=== PATIENT | female | born 1985 | race Caucasian/White ===

== ENCOUNTER → 2018-12-29 15:39 | Outpatient (CLI) | payer OTHER, MEDICAID, SELFPAY ==
[2018-12-29 17:12] LABS: Thyroid Stimulating Hormone 1.91 uIU/mL (0.47-4.68)
== END ==
PROVIDERS: PCP Family Medicine; Visit Provider Family Medicine
DX: E03.9 Hypothyroidism, unspecified (principal)
CPT/HCPCS: 36415; 84443

== ENCOUNTER → 2019-07-14 15:09 | Outpatient (CLI) | payer OTHER, MEDICAID, SELFPAY ==
--- NOTE | 2019-07-14 | DI.US.S_ITS ---
PROCEDURE: US THYROID INDICATIONS: NON TOXIC DIFFUSE GOITER TECHNIQUE: Real-time scanning was performed of the thyroid gland, with image documentation. COMPARISON: None. FINDINGS: Right: Thyroid lobe measures 5.9 x 1.4 x 1.2 cm, and is homogeneous in echotexture. Left: Thyroid lobe measures 4.3 x 0.8 x 1.5 cm, and is homogenous in echotexture. Isthmus: 2 mm thick. Nodule number: 1 Location: Inferior pole of the right thyroid lobe Size: 2.3 x 1.2 x 1.9 cm. Composition: Solid Echogenicity: Hypoechoic Shape: wider than tall. Margins: Most Echogenic foci: Punctate and macrocalcifications Total points: 7 ACR TI-RADS category: 5 IMPRESSION: 1. A 2.2 x 1.2 1.9 cm TI-RADS category 5 (highly suspicious) nodule in the inferior pole of the right thyroid lobe. Recommend ultrasound guided fine-needle aspiration biopsy. ACR TI-RADS definitions and recommendations: TI-RADS 1 (benign): 0 points. FNA not needed. TI-RADS 2 (not suspicious): 2 points. FNA not needed. TI-RADS 3 (mildly suspicious): 3 points. * FNA if 2.5 cm or larger, follow up if 1.5 cm or larger (at 1, 3, and 5 years). TI-RADS 4 (moderately suspicious): 4-6 points. * FNA if 1.5 cm or larger, follow up if 1 cm or larger (at 1, 2, 3, and 5 years). TI-RADS 5 (highly suspicious): 7 points or more. * FNA if 1 cm or larger, follow up if 0.5 cm or larger (every year for 5 years). Dictated by: Samy Salas M.D. on 07/15/2019 at 12:43 Approved by: Samy Salas M.D. on 07/15/2019 at 12:48
== END ==
PROVIDERS: Family Provider Family Medicine; PCP Family Medicine; Visit Provider Allergy & Immunology
DX: E04.1 Nontoxic single thyroid nodule (principal)
CPT/HCPCS: 76536

== ENCOUNTER → 2019-08-24 09:26 | Outpatient (CLI) | payer OTHER, MEDICAID, SELFPAY ==
--- NOTE | 2019-08-24 | PATH_ITS ---
Note [facility] Accession Number: [id number] TESTS RESULT FLAG UNITS REF RANGE LAB Clinician Provided Cytology Information No. of containers..01 ThinPrep Vial No. of containers..10 Previously Prepared Cytology Slide RIGHT THYROID NODULE DIAGNOSIS: 02 RIGHT THYROID NODULE BENIGN. BETHESDA CATEGORY II. SPECIMEN CONSISTS OF BENIGN FOLLICULAR CELLS, HEMOSIDERIN-LADEN MACROPHAGES, COLLOID, AND BLOOD. THIS PATTERN IS CONSISTENT WITH A BENIGN FOLLICULAR NODULE. Pathologist ICD10: 02 E04.1 02 Yu Hansen MD, Pathologist NPI- [id number] Sinan Amezquita, Notary Public ([facility]) 01 30 CC, PALE YELLOW, CLEAR RECEIVED: 5 ALCOHOL FIXED AND 5 QUICK STAINED SLIDES WITH 1 RNA VIAL FOR FURTHER TESTING. /VDU 08/25/2019 0953 [facility] FLAG LEGEND: L-Low Normal,H-High Normal,LL-Alert Low,HH-Alert High <-Panic Low,>-Panic High,A-Abnormal,AA-Critical Abnormal Performed at: 01 =Z [facility] [address], [place] [address] Terell Rainey MD, 02 [facility] [address] [place] [id number] Yu Hansen MD, Performed at: 01 [facility] [address], [place], [place] [id number] MD Terell Rainey MD Phone: [phone]
--- NOTE | 2019-08-24 09:28 | DI.US.S_ITS ---
PROCEDURE: US FINE NEEDLE ASPIRATION INDICATIONS: SINGLE RIGHT THYROID NODULE TECHNIQUE: The indications, alternatives, benefits, risks, and complications of the procedure were explained to the patient. Written informed consent was obtained and placed in the chart. The thyroid region was examined sonographically and a site was chosen for ultrasound guided percutaneous sampling. The skin was prepared and draped in the usual fashion, and anesthetized with 1% lidocaine infiltrated from the skin down to the thyroid gland. Multiple passes were then performed, with contents emptied into an appropriate pathology specimen container. A bandage was applied to the area of access at completion of the study. COMPARISON: None. FINDINGS: Location(s) of lesion(s) sampled: right lobe [place]: 25 and 22 gauge hypodermic needles. Number of passes: 6 Medications: 1% lidocaine for local anaesthesia. Complications: None. IMPRESSION: Successful ultrasound-guided thyroid nodule fine needle aspiration, with cytology results pending. Please see chart below for management recommendations based on cytology results. [facility] ReportingRecommendationsNon-diagnostic* Repeat US-guided FNA, with on-site cytology evaluation if possible. * Repeated non-diagnostic nodules without high suspicion US features: close observation vs surgical consult. * Consider surgery if nodule has high suspicion US features, grows >20% in 2 dimensions on followup, or patient has clinical risk factors for malignancy. Benign* If nodule has high suspicion US features: repeat US and FNA within 12 months. * If nodule has low to intermediate suspicion US features: repeat US at 12-24 months. If nodule grows (20% increase in at least 2 dimensions, with minimal increase of 2 mm or >50% change in volume), or development of new suspicious US features, then repeat FNA or continue followup. * If nodule has very low suspicion US features: followup US at >24 months. Atypia of undetermined significance, follicular lesion of undetermined significanceRepeat FNA, molecular testing, followup US, or surgical consult.Follicular neoplasm, suspicious for follicular neoplasmSurgical consult; also consider molecular testing. Suspicious for malignancySurgical consult.MalignantSurgical consult. Dictated by: Waylon Chiang M.D. on 08/24/2019 at 11:19 Approved by: Waylon Chiang M.D. on 08/24/2019 at 11:21
== END ==
PROVIDERS: PCP Family Medicine; Visit Provider Family Medicine
DX: E03.9 Hypothyroidism, unspecified (principal); E04.2 Nontoxic multinodular goiter
CPT/HCPCS: 10005

== ENCOUNTER → 2020-02-14 12:27 | Outpatient (CLI) | payer OTHER, MEDICAID, SELFPAY ==
--- NOTE | 2020-02-14 12:28 | DI.RAD.S_ITS ---
PROCEDURE: XR LUMBAR SPINE 2-3V INDICATIONS: low back pain with radiculopathy TECHNIQUE: 3 views of the lumbar spine were acquired. COMPARISON: None. FINDINGS: Bones: There are 5 lumbar-type vertebral bodies. The lowest intervertebral disk space is designated as L5-S1. The vertebral body heights are well-maintained without evidence to suggest an acute compression fracture. The bone mineralization is within normal limits. Mild degenerative changes of the lumbar spine are evident there is mild disc height loss, mild endplate irregularity, scattered anterior disc osteophyte complexes, and mild lower lumbar facet arthrosis. Bony alignment is within normal limits on the lateral view without spondylolisthesis. There is mild dextroconvex curvature of the lumbosacral spine with respect to the thoracolumbar junction. Soft tissues: The soft tissues of the imaged abdomen and pelvis are within normal limits. IMPRESSION: Mild degenerative changes of the lumbar spine. Dictated by: Jose Lynn M.D. on 02/14/2020 at 14:10 Approved by: Jose Lynn M.D. on 02/14/2020 at 14:12
== END ==
PROVIDERS: PCP Family Medicine; Referring Provider Family Medicine; Visit Provider Family Medicine
DX: M54.5 Low back pain (principal); M47.26 Other spondylosis with radiculopathy, lumbar region
CPT/HCPCS: 72100

== ENCOUNTER → 2020-02-28 12:44 | Outpatient (CLI) | payer OTHER, MEDICAID, SELFPAY ==
--- NOTE | 2020-02-28 12:45 | DI.US.S_ITS ---
PROCEDURE: US PELVIC COMPLETE INDICATIONS: Endometriosis TECHNIQUE: Real-time scanning was performed of the pelvic organs, with image documentation. Additional endovaginal scanning was necessary due to incomplete visualization of the adnexal and endometrial structures by transabdominal scanning. COMPARISON: [facility], US, PELVIC COMPLETE, 12/20/2015, 9:24. [facility], , PELVIC COMPLETE, 01/18/2015, 15:00. FINDINGS: Transabdominal scanning: Limited scanning through the kidneys shows no hydronephrosis. No pathologic free abdominal or pelvic fluid. Endovaginal scanning: Uterus: Uterus is normal in size at 3.8 x 5.1 x 5.3 cm. The endometrium measures 4.0 mm in combined thickness. Ovaries: The right ovary appears normal measuring 3.2 x 1.8 x 2.3 cm and the left also appears normal measuring 3.4 x 2.2 x 3.4 cm IMPRESSION: Normal examination, no abnormal pelvic mass or abnormal fluid collection. Dictated by: Casey Garcia M.D. on 02/28/2020 at 13:48 Approved by: Casey Garcia M.D. on 02/28/2020 at 13:50
== END ==
PROVIDERS: PCP Family Medicine; Referring Provider Obstetrics & Gynecology; Visit Provider Obstetrics & Gynecology
DX: N80.9 Endometriosis, unspecified (principal)
CPT/HCPCS: 76830; 76856

== ENCOUNTER → 2020-03-10 10:42 | Outpatient (CLI) | payer OTHER, MEDICAID, SELFPAY | PROVIDERS: PCP Family Medicine; Visit Provider Obstetrics & Gynecology | DX: R39.9 Unspecified symptoms and signs involving the genitourinary system (principal) | CPT/HCPCS: 87086 ==

== ENCOUNTER → 2020-03-27 16:16 | Outpatient (CLI) | payer OTHER, MEDICAID, SELFPAY ==
[2020-03-27 18:23] LABS: Thyroid Stimulating Hormone 1.99 uIU/mL (0.47-4.68)
== END ==
PROVIDERS: PCP Family Medicine; Referring Provider Family Medicine; Visit Provider Family Medicine
DX: E03.9 Hypothyroidism, unspecified (principal)
CPT/HCPCS: 36415; 84443

== ENCOUNTER → 2020-04-17 09:28 | Outpatient (CLI) | payer OTHER, MEDICAID, SELFPAY ==
--- NOTE | 2020-04-17 09:30 | DI.MG.S_ITS ---
BILATERAL DIGITAL DIAGNOSTIC MAMMOGRAM 3D/2D: 04/17/2020 CLINICAL: Bilateral breast pain. Comparison is made to exams dated: 03/25/2013 mammogram and 03/22/2013 [facility]. The tissue of both breasts is extremely dense, which lowers the sensitivity of mammography. No significant masses, calcifications, or other findings are seen in either breast. IMPRESSION: INCOMPLETE: NEEDS ADDITIONAL IMAGING EVALUATION There is no abnormality seen in the right breast to correspond with the pain in the upper outer quadrant, however, ultrasound is recommended. There is no abnormality seen in the left breast to correspond with the diffuse pain, however, clinical followup is recommended. This exam was interpreted at Station ID: [id number]. NOTE: For mammograms, a report in lay terms will be sent to the patient. Approximately 15% of breast malignancies will not be visualized mammographically. In the management of a palpable breast mass, a negative mammogram must not discourage biopsy of a clinically suspicious lesion. Electronically Signed By: Terell Doan M.D. ddellen/cristiano:04/17/2020 10:27:35 copy to: Edilia Galicia M.D., [facility], ph: [phone], fax: [phone] ACR BI-RADS Category 0: Incomplete 3340V
--- NOTE | 2020-04-17 09:30 | DI.US.S_ITS ---
LIMITED ULTRASOUND OF RIGHT BREAST: 04/17/2020 CLINICAL: Diffuse right breast pain. Comparison is made to exams dated: 04/17/2020 mammogram, 03/25/2013 mammogram, and 03/22/2013 [facility]. Color flow and real-time ultrasound of the right breast upper outer quadrant were performed on the areas of interest. There is a 0.7 cm x 0.4 cm x 0.6 cm cluster of oval cysts with a septated internal wall in the right breast at 10 o'clock posterior depth. This cluster of oval cysts is hypoechoic with posterior acoustic enhancement. Color flow imaging demonstrates that there is no vascularity present. This may or may not correlate with pain in the upper outer quadrant. IMPRESSION: PROBABLY BENIGN The 0.7 cm x 0.4 cm x 0.6 cm cluster of oval cysts in the right breast is consistent with a complicated cyst and is probably benign. A follow-up ultrasound in 6 months is recommended. A follow-up ultrasound in 6 months is recommended to demonstrate stability. Clinical follow-up is recommended for patient's pain symptoms. This exam was interpreted at Station ID: [id number]. Electronically Signed By: Terell Doan M.D. ddp/:04/17/2020 10:48:03 copy to: Edilia Galicia M.D., [facility], ph: [phone], fax: [phone] letter sent: Followup Recommended Ultrasound BI-RADS: 3 Probably benign
== END ==
PROVIDERS: PCP Family Medicine; Referring Provider Obstetrics & Gynecology; Visit Provider Obstetrics & Gynecology
DX: R92.8 Other abnormal and inconclusive findings on diagnostic imaging of breast (principal); N64.4 Mastodynia; N60.01 Solitary cyst of right breast
CPT/HCPCS: 76642; 77066; G0279

== ENCOUNTER → 2020-05-06 10:13 | Outpatient (CLI) | payer OTHER, MEDICAID, SELFPAY ==
--- NOTE | 2020-05-06 10:15 | DI.MRI.S_ITS ---
PROCEDURE: MR LUMBAR SPINE WO CON INDICATIONS: low back pain with radiculopathy, limited improvement w PT TECHNIQUE: Noncontrast sagittal T1 spin echo and T2 fast echo, sagittal STIR, axial T1 and T2 fast spin echo through the lumbar spine. In cases with scoliosis, additional coronal T2 fast spin echo may be performed. COMPARISON: None. FINDINGS: Image quality: Excellent. Alignment and Curvature: There is normal bony alignment. Bones: Marrow is of normal overall signal. Schmorl's nodes noted in the superior endplate of the L2, L3 and L4 vertebral bodies. No acute vertebral body compression fractures. Spinal Cord: Conus medullaris terminates at the T12 level. Visualized cord demonstrates normal signal and size. Paraspinous Soft Tissues: No paravertebral masses. L1-L2: Normal appearance. L2-L3: Normal appearance. L3-L4: Normal appearance. L4-L5: Loss of disc signal. Mild, diffuse disc bulge. Large central disc protrusion. Disc protrusion abuts but does not displace the traversing bilateral L5 nerve roots. Moderate narrowing of the central canal. Mild bilateral neural foraminal narrowing. L5-S1: Normal appearance. IMPRESSION: 1. Mild L4-L5 degenerative disease. 2. Mild L4-L5 central canal narrowing. 3. Mild bilateral L4-L5 neural foraminal narrowing. 4. Large central L4-L5 disc protrusion abuts, but does not displace the traversing bilateral L5 nerve roots. Dictated by: Anali Abdalla MD, PhD on 05/08/2020 at 9:49 Approved by: Anali Abdalla MD, PhD on 05/08/2020 at 9:52
== END ==
PROVIDERS: PCP Family Medicine; Referring Provider Family Medicine; Visit Provider Family Medicine
DX: M54.5 Low back pain (principal); M51.16 Intervertebral disc disorders with radiculopathy, lumbar region; M48.061 Spinal stenosis, lumbar region without neurogenic claudication
CPT/HCPCS: 72148

== ENCOUNTER → 2020-08-16 10:34 | Outpatient (CLI) | payer OTHER, MEDICAID, SELFPAY ==
--- NOTE | 2020-08-16 10:36 | DI.US.S_ITS ---
PROCEDURE: US THYROID INDICATIONS: Thyroid nodule. TECHNIQUE: Real-time scanning was performed of the thyroid gland, with image documentation. COMPARISON: [facility], US, US FINE NEEDLE ASPIRATION, 08/24/2019, 9:34. [facility], US, US THYROID, 07/14/2019, 15:26. FINDINGS: Right: Thyroid lobe measures 5.2 x 1.5 x 1.3 cm, and is homogeneous in echotexture. Left: Thyroid lobe measures 4.5 x 1.1 x 1.4 cm, and is homogenous in echotexture. Isthmus: 2.6 mm thick. Nodule number: 1 Location: Right inferior Size: Decreased at 1.9 x 1.1 x 1.6 cm. Composition: Solid Echogenicity: Hypoechoic Shape: wider than tall. Margins: Smooth Echogenic foci: None Total points: 4 ACR TI-RADS category: Moderately suspicious IMPRESSION: Interval decrease in size of right thyroid nodule. Recommend continued followup ultrasound as detailed below. ACR TI-RADS definitions and recommendations: TI-RADS 1 (benign): 0 points. FNA not needed. TI-RADS 2 (not suspicious): 2 points. FNA not needed. TI-RADS 3 (mildly suspicious): 3 points. * FNA if 2.5 cm or larger, follow up if 1.5 cm or larger (at 1, 3, and 5 years). TI-RADS 4 (moderately suspicious): 4-6 points. * FNA if 1.5 cm or larger, follow up if 1 cm or larger (at 1, 2, 3, and 5 years). TI-RADS 5 (highly suspicious): 7 points or more. * FNA if 1 cm or larger, follow up if 0.5 cm or larger (every year for 5 years). Dictated by: Ephraim DIAZ Interpreted: Elba Hannon MD on 08/16/2020 at 13:21 Approved by: Elba Hannon M.D. on 08/16/2020 at 17:14
== END ==
PROVIDERS: PCP Family Medicine; Referring Provider Family Medicine; Visit Provider Family Medicine
DX: E04.1 Nontoxic single thyroid nodule (principal)
CPT/HCPCS: 76536

== ENCOUNTER → 2020-08-29 07:59 | Outpatient (CLI) | payer OTHER, MEDICAID, SELFPAY ==
--- NOTE | 2020-08-29 08:02 | DI.US.S_ITS ---
PROCEDURE: US RENAL COMPLETE INDICATIONS: LOWER URINARY TRACT SYMPTOMS, BLADDER SPASMS TECHNIQUE: Real-time scanning was performed of the kidneys and bladder, with image documentation. COMPARISON: None. FINDINGS: Kidneys: Kidneys are normal in size. Right kidney measures 10.4 x 4.6 x 4.5 cm long; left kidney measures 10.8 x 4.3 x 4.6 cm long. Right renal cortical thickness is 1.6 cm; left renal cortical thickness is 1.7 cm. Renal cortical echotexture is normal. No hydronephrosis or nephrolithiasis. No suspicious solid mass lesions. Bladder: Pre-void bladder volume is 555 mL. Post-void residual is 29 mL. Pre-void images demonstrate no intraluminal masses or stones. On pre-void images, bilateral ureteral jets were not noted with color Doppler interrogation. (Of note, ureteral jets may not be detectable in up to 25% of cases due to insufficient differences in specific gravity between ureteral and bladder urine). Miscellaneous: No free pelvic fluid. IMPRESSION: Normal sonographic evaluation of the bilateral kidneys and urinary bladder. Dictated by: Leonidas Daigle M.D. on 08/29/2020 at 15:11 Approved by: Leonidas Daigle M.D. on 08/29/2020 at 15:12
== END ==
PROVIDERS: PCP Family Medicine; Referring Provider Urology; Visit Provider Urology
DX: R39.9 Unspecified symptoms and signs involving the genitourinary system (principal); N32.89 Other specified disorders of bladder
CPT/HCPCS: 76770

== ENCOUNTER → 2020-09-29 12:52 | Outpatient (CLI) | payer OTHER, MEDICAID, SELFPAY ==
--- NOTE | 2020-09-29 12:53 | DI.US.S_ITS ---
LIMITED ULTRASOUND OF RIGHT BREAST AND AXILLA: 09/29/2020 CLINICAL: Short term follow up of the right breast. Comparison is made to exams dated: 04/17/2020 ultrasound, 04/17/2020 mammogram, 03/25/2013 mammogram, and 03/22/2013 [facility]. Color flow and real-time ultrasound of the right breast 10 o'clock, and axilla regions were performed. Soria scale images of the real-time examination were reviewed. Redemonstration of previously described 0.7 cm x 0.4 cm x 0.5 cm cluster of oval cysts with a septated internal chowdhury in the right breast at 10 o'clock posterior depth 10 cm from the nipple. This cluster of oval cysts is hypoechoic with posterior acoustic enhancement. Color flow imaging demonstrates that there is no vascularity present. No mammographic correlates seen on prior evaluation. No significant abnormalities were seen sonographically in the right axilla. IMPRESSION: PROBABLY BENIGN The 0.7 cm x 0.4 cm x 0.5 cm cluster of oval cysts in the right breast is consistent with a complicated cyst and is probably benign. A follow-up right mammogram and an ultrasound in 6 months is recommended to demonstrate stability. Findings and recommendations were conveyed to the patient during today's evaluation. This exam was interpreted at Station ID: [id number]. Electronically Signed By: Leonidas Daigle M.D. aty/:09/29/2020 16:05:01 copy to: Edilia Galicia M.D., [facility], ph: [phone], fax: [phone] letter sent: Followup Recommended Ultrasound BI-RADS: 3 Probably benign
== END ==
PROVIDERS: PCP Family Medicine; Referring Provider Surgery; Visit Provider Surgery
DX: R92.8 Other abnormal and inconclusive findings on diagnostic imaging of breast (principal); N60.01 Solitary cyst of right breast
CPT/HCPCS: 76642

== ENCOUNTER → 2020-11-03 09:22 | Outpatient (CLI) | payer OTHER, MEDICAID, SELFPAY ==
--- NOTE | 2020-11-03 | DI.MG.S_ITS ---
UNILATERAL RIGHT DIGITAL DIAGNOSTIC MAMMOGRAM POST-PROCEDURE IMAGING FOR MARKER PLACEMENT: 11/03/2020 CLINICAL: Right post clip. Comparison is made to exams dated: 09/29/2020 ultrasound, 04/17/2020 ultrasound, and 04/17/2020 mammogram - [facility]. The tissue of right breast is dense, which lowers the sensitivity of mammography. The Vision Marker after biopsy is at expected position. IMPRESSION: POST PROCEDURE MAMMOGRAM FOR MARKER PLACEMENT Biopsy site marker as expected. This exam was interpreted at Station ID: [id number]. NOTE: For mammograms, a report in lay terms will be sent to the patient. Approximately 15% of breast malignancies will not be visualized mammographically. In the management of a palpable breast mass, a negative mammogram must not discourage biopsy of a clinically suspicious lesion. Electronically Signed By: Casey Garcia M.D. sdh/:11/06/2020 10:59:31 copy to: Edilia Galicia M.D., [facility] [employer], ph: [phone], fax: [phone] ACR BI-RADS Category Post-procedure mammogram for marker placement
--- NOTE | 2020-11-03 | PATH_ITS ---
[facility] Accession Number: [id number] . 01 Material submitted: . breast - RIGHT BREAST LESION 10:00 10 CM FN . 01 Clinical history: . RIGHT BREAST CYSTIC ABNORMALITY . 02 Diagnosis: Right Breast Lesion At 10 o'clock, 10 cm From Nipple, Needle Core Biopsy: Relatively well-defined benign cystic structures in a background of benign breast parenchyma, favor late stage duct ectasia. Please see comment. Negative for atypia or malignancy. MRV 11/09/2020 1514 Local . 02 Comment: The histologic features are consistent with the radiographic findings of a complicated cyst. An elastic stain is performed to help delineate tissue architecture and is negative in the region of interest; internal and external controls stained appropriately. A negative elastic stain can be associated with the late stage of duct ectasia. Overall, biochemical stain results and the well circumscribed nature of the cystic structures best support an interpretation of late stage duct ectasia. There is no evidence of atypia or malignancy. . Results were discussed with Dr. Kiran Maharaj's RN, on 11/07/2020 at approximately 4:45 p.m. . As part of ongoing corporate quality manager, this case is also reviewed by Dr. Oliva, who concurs with the given interpretation. . 02 Electronically signed: . Shaneka Brown MD, Pathologist NPI- [id number] . 01 Gross description: . Received one formalin-filled container, labeled with the patient's name and designated right breast lesion 10 o'clock 10 cm FN. The specimen is received with a plastic filter in container, sample loose in container and consists of multiple yellow-esposito to esposito-spencer portions of tissue which range in size from less than 0.1 cm to 1.2 x 0.4 x 0.3 cm. All fragments are totally submitted in one cassette. No collection date or time per container. Possible collection date and time per requisition 11/03/20 at 1100. Total fixation time: Approximately 55 hours. ([id number]) /MARYLIN 11/07/2020 0221 Local . 02 Pathologist provided ICD-10: N60.02 . 02 CPT . 073786, 636331 Performed at: 01 [facility] [address] [id number] MD Terell Rainey MD Phone: [phone] Performed at: 02 [facility] [address] [place] [id number] MD Yu Hansen MD Phone: [phone]
--- NOTE | 2020-11-03 09:25 | DI.US.S_ITS ---
ULTRASOUND GUIDED BIOPSY RIGHT BREAST USING VACUUM DEVICE WITH MARKING DEVICE INSERTED AND POST MAMMOGRAPHIC AND ULTRASOUND IMAGIN11/03/2020 CLINICAL: Right breast mass. PATIENT CONSENT: Risks (minor bleeding, infection, vasovagal reaction and repeat procedure), benefits and alternatives were explained to the patient and written informed consent was obtained. Correlation is made to exams dated: 11/03/2020 mammogram, 09/29/2020 ultrasound, 04/17/2020 ultrasound, 04/17/2020 mammogram, 03/25/2013 mammogram, and 03/22/2013 [facility]. An ultrasound guided biopsy using real-time ultrasound was performed for the concerning 0.5 cm x 0.6 cm x 0.6 cm circumscribed oval solid mass located in the right breast at 10 o'clock middle depth. This was described on the previous mammography and ultrasound reports. The skin was prepped in the usual manner. Local anesthetic was administered to the access site. A skin gladis was made in the breast. The abnormality was approached from the lateral aspect. A 13 gauge biopsy needle was placed adjacent to the abnormality under ultrasound guidance. Once the needle was documented to be in the correct location, six specimens were obtained using the Mammotome biopsy system. The patient received deep positioned local anesthetic, lidocaine with epinepherine, before the procedure at the biopsy site. A Vision Marker clip was inserted into the biopsy cavity. A skin closure strip and a sterile dressing were applied to the access site. Post procedure mammographic and ultrasound imaging demonstrates the location device at the targeted area and partial removal of the abnormality. The specimens were sent to the laboratory for pathological analysis. IMPRESSION: ULTRASOUND GUIDED BIOPSY BENIGN Ultrasound guided biopsy of the 0.5 cm x 0.6 cm x 0.6 cm solid mass in the right breast at 10 o'clock middle depth 10 cm from the nipple was successful. Pathology demonstrates Relatively well-defined benign cystic structures in a background of benign breast parenchyma, favor late stage duct ectasia. Please see comment. Negative for atypia or malignancy. Pathology results are concordant with imaging findings. Recommend returning to screening mammogram. This exam was interpreted at Station ID: [id number]. Casey Coronel M.D. [facility]/:11/13/2020 08:13:44 copy to: Edilia Galicia M.D., [facility], ph: [phone], fax: [phone]
== END ==
PROVIDERS: PCP Family Medicine; Referring Provider Surgery; Visit Provider Surgery
DX: N60.01 Solitary cyst of right breast (principal); N64.4 Mastodynia
CPT/HCPCS: 19083; 77065

== ENCOUNTER → 2021-04-23 17:41 | Outpatient (CLI) | payer OTHER, MEDICAID, SELFPAY | PROVIDERS: PCP Family Medicine; Referring Provider Family Medicine; Visit Provider Family Medicine | DX: E03.9 Hypothyroidism, unspecified (principal) | CPT/HCPCS: 36415; 84443 ==

== ENCOUNTER → 2021-07-17 13:44 | Outpatient (CLI) | payer OTHER, MEDICAID, SELFPAY ==
[2021-07-17 14:29] LABS: COVID19 -Nasal RAPID Negative (Negative)
== END ==
PROVIDERS: Family Provider Family Medicine; PCP Family Medicine; Visit Provider Family Medicine
DX: Z20.822 Contact with and (suspected) exposure to COVID-19 (principal)
CPT/HCPCS: 87635

== ENCOUNTER 2021-08-21 16:45 | Outpatient (RCR) | payer OTHER, MEDICAID, SELFPAY ==
--- NOTE | 2021-07-02 14:30 | PT.OIE ---
Current Diagnoses Pain in unspecified ankle and joints of unspecified foot (07/02/21) Lumbago with sciatica, right side (07/02/21) Muscle weakness (generalized) (07/02/21) Difficulty in walking, not elsewhere classified (07/02/21) Unspecified abnormalities of gait and mobility (07/02/21) Abnormal posture (07/02/21) Past Medical History (Last Reviewed 12/26/20 @ 17:41 by Carmen Beck MD) ADHD (attention deficit hyperactivity disorder) Ankle arthritis Ankle pain Anxiety Depression Endometriosis Fibrocystic breast disease History of ankle surgery (2005) History of bilateral inguinal hernia repair (04/17/16) History of carpal tunnel release (2008) History of colonoscopy History of excision of lesion History of laparoscopy (2010) History of TMJ disorder Hypothyroidism IBS (irritable bowel syndrome) Nodulocystic acne Thyroid nodule Tremor Past Surgical History (Last Reviewed 12/26/20 @ 17:41 by Carmen Beck MD) History of ankle surgery (2005) History of bilateral inguinal hernia repair (04/17/16) History of carpal tunnel release (2008) History of colonoscopy History of excision of lesion History of laparoscopy (2010) History of third molar tooth extraction Visit Care Team Role Provider Type Edilia Galicia MD Attending Provider Physician Family Provider Primary Care Provider Referring Provider Specialty: Family Practice Address: [address] [place] [address], [facility] Email: [email or web address] Physical Therapy Initial Evaluation PT-OP-A Visit Information Start: 06/28/21 13:42 Freq: Status: Active Protocol: Document 07/02/21 09:33 [facility] (Rec: 07/02/21 12:07 [facility] [id number]) Out-Patient Physical Therapy Visit Information Visit Information Visit Type Initial Evaluation Visit Start Time 11:22 Visit Stop Time 12:02 Total Visit Minutes 40 Visit Number 1 Number of EXECUTIVE LEGAL SECRETARY Visits 0 PT-OP-B Current Condition Start: 06/28/21 13:42 Freq: Status: Active Protocol: Document 07/02/21 09:33 [facility] (Rec: 07/02/21 12:07 [facility] [id number]) Current Condition History of Current Condition Current Complaints LBP w/radicaular R sided, L ankle, trouble walking History of Current Condition Pt reports at age 10-11 pt broke ankle on trampoline ( buckle fracture on head of one of bones and sprain). Did PT and wore boot but never really healed. Father is an ER MD and they went through lots of testing and they did exploritory surgery in 2004 which found scar tissue and took that out and that helped. notes yani has arthritis now. She has pain with standing and walking extended (concrete worse tahn dirt). If she steps back and to L, then her ankle goes out. She has sprained both of them mult times. 2019 pt ruptured disc L4-5 with pain down R leg. She did PT for that which she doesn't feel like was good therapy. She had a spine injection and that gave her more pain and it set her back really far. She had already used up her insurance benefits of PT so did some exercises on her own. Pain is now only in back mostly but she still has it shoot down and numbness occ. She now has pain in L lat lower leg which is new. Normally pain is ant lat ankle . She wants to be able to walk in order to lose weight to help her with her ortho injuries but can't walk d/t pain. She wants to prevent herself from falling d/t instability. Feels like both legs are weak. She can get down into a squat but cannot hold it long d/t pain in L lat ankle and has to get out of that position. Pt fell down stairs d/t slipping as one leg went out from under her and other couldn't hold her. She was starting to inc each month by 500 steps to inc walking but then L piriformist started tightening up and she had to back off. On a good day now, she can do 6k steps. 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 Prior Treatments and Tests PT 1997 for ankle, surgery 2004 for ankle scar tissue, saw in [place] that wanted to do spinal fusion, Saw manufacturing specialist that said only slight R buldge that barely touches spinal cord, PT for mult things in past Treatment Goals Patient/Caregiver Goals Get as close to normal as possible, find out what cause pain to shoot up ankle to dec that, work on mm to strengthen to avoid instability w/step backa nd to side, back to walking more PT-OP-C Subjective Start: 06/28/21 13:42 Freq: Status: Active Protocol: Document 07/02/21 09:33 [facility] (Rec: 07/02/21 12:07 [facility] [id number]) Patient Questionnaires Foot & Ankle Ability Measure- ADL and Sports FAAM-ADL Score 64/84 FAAM-Sport Score 16/28 Lower Extremity Functional Scale LEFS Score 53/80 OP-PT Pain Assessment Location low back Pain Location Details lower lumbar Scale Used 6/10 worst-tries to stop it before higher Description Sharp,Stabbing,Tightness Frequency Frequent Radiating Location down into post R LE pain & tingling Pain Aggravating Factors Standing,Sitting,Lifting Other Pain Alleviating Factors extension, walking L ankle Pain Location Details ant lat and lat lower leg Scale Used 1-3/10 at rest; 5/10 Description Aching,With Movement Frequency Constant Pain Duration can last days Pain Aggravating Factors Standing,Walking Other Pain Aggravating Factors squatting, change of weather, concrete, cold, muck boots Pain Alleviating Factors Heat Other Pain Alleviating Factors traction of ankle (only during that) PT-OP-D Balance Start: 06/28/21 13:42 Freq: Status: Active Protocol: Document 07/02/21 09:33 [facility] (Rec: 07/02/21 12:07 [facility] [id number]) Balance Tests Single Limb Standing Single Limb- Right 20 sec lat shear of hip and UE reached out for balance Single Limb- Left 8 sec lat shear of hip and UE reached out for balance-pain PT-OP-F Manual Assessment Start: 06/28/21 13:42 Freq: Status: Active Protocol: Document 07/02/21 09:33 [facility] (Rec: 07/02/21 12:07 [facility] [id number]) Manual Assessments Soft Tissue Assessment Soft Tissue Mobility Assessment tenderness L ant talus, peroneal mm L Joint Mobility Assessment Joint Mobility Assessment iliac crest slightly high on L , equal greater trochanter ; rearfoot valgus L, forefoot valgus R>L PT-OP-G Mobility & Gait Start: 06/28/21 13:42 Freq: Status: Active Protocol: Document 07/02/21 09:33 [facility] (Rec: 07/02/21 12:07 [facility] [id number]) OP Gait Assessment Comments Gait Comments Dec stance time on LLE with no push off from LLE, no R UE swing, lat lean over LLE PT-OP-J Posture/Palpation/Skin Start: 06/28/21 13:42 Freq: Status: Active Protocol: Document 07/02/21 09:33 [facility] (Rec: 07/02/21 12:07 [facility] [id number]) Posture Evaluation [facility] Postural Classification System [facility] Postural Classifications Posterior/Posterior Vertebral Compression Test 1 Lumbar Protective Mechanism Left AP 0 Lumbar Protective Mechanism Right AP 0 Lumbar Protective Mechanism Left PA 0 Lumbar Protective Mechanism Right PA 0 PT-OP-K Range of Motion Start: 06/28/21 13:42 Freq: Status: Active Protocol: Document 07/02/21 09:33 [facility] (Rec: 07/02/21 12:07 [facility] [id number]) Ankle and Foot Goniometric Range of Motion Ankle and Foot Right Active Dorsiflexion with Knee Flexed 2 Dorsiflexion with Knee Extended 5 Plantarflexion 60 Inversion 40 Eversion 19 Comments lacking DF to neutral in knee ext position Left Active Dorsiflexion with Knee Flexed 0 Dorsiflexion with Knee Extended 7 Plantarflexion 60 Inversion 33 Eversion 18 Comments lacking DF to neutral in knee ext position PT-OP-L Special Tests Start: 06/28/21 13:42 Freq: Status: Active Protocol: Document 07/02/21 09:33 [facility] (Rec: 07/02/21 12:07 [facility] [id number]) Special Tests Foot/Ankle Special Tests Talor Tilt Test Results neg Anterior Draw Test Results neg Neural Special Tests- Lower Body SLR Test Results neg -good HS mobility slump Test Results positive R PT-OP-M Strength Start: 06/28/21 13:42 Freq: Status: Active Protocol: Document 07/02/21 09:33 [facility] (Rec: 07/02/21 12:07 [facility] [id number]) Hip Strength Hip Manual Muscle Testing Right Flexion (L2) 4 Good Extension (S1) 3+ Fair+ Abduction 3+ Fair+ External Rotation 4 Good Internal Rotation 4 Good Left Flexion (L2) 3+ Fair+ Extension (S1) 3 Fair Abduction 3+ Fair+ External Rotation 4- Good- Internal Rotation 4- Good- Knee Strength Knee Manual Muscle Testing Right Flexion (S2) 5 Normal Extension (L3) 5 Normal Left Flexion (S2) 4 Good Extension (L3) 5 Normal Ankle/Foot Strength Ankle and Foot Manual Muscle Testing Right Dorsiflexion (L4) 5 Normal Plantarflexion (S1) 4+ Good+ Inversion 5 Normal Eversion (S1) 5 Normal Comments 15 heel raises Left Dorsiflexion (L4) 4+ Good+ Plantarflexion (S1) 4- Good- Inversion 4 Good Eversion (S1) 5 Normal Comments 12 heel raises w/difficulty keeping knee straight PT-OP-T Assessment and Plan Start: 06/28/21 13:42 Freq: Status: Active Protocol: Document 07/02/21 09:33 [facility] (Rec: 07/02/21 12:07 [facility] [id number]) Physical Therapy Assessment Rehab Potential Rehabilitation Potential Good Evaluation Complexity Number of Personal Factors/Comorbidities 3 or More Number of Body Systems Impaired 4 or More Clinical Presentation at Evaluation Evolving Impairments Impairments Activity Tolerance,Balance, Functional Activities, Functional Mobility,Gait,Pain, Posture,ROM,Soft Tissue Mobility,Strength Goals SLS Long-Term Goal (LTG) Pt will be able to do SLS 15 sec B w/o lat lean or UE use or pain to show iproved balance and stability. LTG Duration 09/01/21 ROM Short Term Goal (STG) Pt will have at least DF to neutral in knee ext positon. STG Duration 08/01/21 Long-Term Goal (LTG) Pt will have AROM DF to at least 5 deg in knee ext position to improve gait mechanics. LTG Duration 09/01/21 strength Short Term Goal (STG) Pt will be indep w/ HEP STG Duration 08/01/21 Long-Term Goal (LTG) pt will have at least 3/5 LPM in all planes and 5/5 MMT to LE in all planes to show improved stability to dec instances of LEs givign out. LTG Duration 09/01/21 walking Short Term Goal (STG) Pt will be able to get 6k steps daily without inc pain greater than 4/10 in back or ankle. STG Duration 08/01/21 Optical Manager Goal (LTG) pt will be able to go for walks for exercise with no more than 3/10 pain in ankle or back. LTG Duration 09/01/21 LEFS Impairment 53/80 Long-Term Goal (LTG) Pt will improve LEFS score to at least 65/80 in order to show increase in functional ability. LTG Duration 09/01/21 Assessment Summary Assessment Pt presents w/chronic L ankle pain for about 25 years since fracture and signficiant sprain w/surgery w/removal of scar tissue 16 years ago w/ only some relief. Pt had episode of LBP w/radiculopathy starting last year that has gotten a little better w/less radicular pain but still LBP and weakness in RLE. W/BLE weakness, pt has felt unstable and feels concered about falls. She has not been able to increase walking d/t increased L ankle pain although walking does help her back. She is severely limited in functional moblity and would benefit from skilled PT to return to more normal activity w/o inc pain. Physical Therapy Plan Frequency and Duration Frequency of Treatment 1-2x/week Duration of Treatment 2 months Plan of Care Start Date 07/02/21 Plan of Care End Date 09/01/21 Therapeutic Interventions Therapeutic Interventions Aquatic Therapy,Balance Training,Coordination Training ,Gait Training,Home Exercise Program,Joint Mobilizations, Manual Therapy,Neuromuscular Re-education,Patient/Caregiver Education,Self-Care/Home Management,Soft Tissue Mobilization,Taping, Therapeutic Activities, Therapeutic Exercises Modalities Cold Pack/Ice Massage,Electric Stimulation,Hot Packs, Infrared Therapy,Iontophoresis ,Traction- Mechanical, Ultrasound Next Visit Focus/Plan Next Note Type Treatment Note Next Visit Plan do short visits d/t insurances limits w/units, bridges, supine core facilitation, try semitandem or tandem balance ( lower level balance challenges as SLS is painful), hip hinge w/progession to squat if pt able, calf stretches STM to peroneal, L ankle mobs for DF
--- NOTE | 2021-07-02 14:30 | PT.OPPOC ---
Physical, Occupational & Speech Therapy At [facility] Current Diagnoses Pain in unspecified ankle and joints of unspecified foot (07/02/21) Lumbago with sciatica, right side (07/02/21) Muscle weakness (generalized) (07/02/21) Difficulty in walking, not elsewhere classified (07/02/21) Unspecified abnormalities of gait and mobility (07/02/21) Abnormal posture (07/02/21) Visit Care Team Role Provider Type Edilia Galicia MD Attending Provider Physician Family Provider Primary Care Provider Referring Provider Specialty: Family Practice Address: [address] [place] [address], [place], [address] Email: [email or web address] Plan Of Care PT-OP-T Assessment and Plan Start: 06/28/21 13:42 Freq: Status: Active Protocol: Document 07/02/21 09:33 [facility] (Rec: 07/02/21 12:07 [facility] [id number]) Physical Therapy Assessment Rehab Potential Rehabilitation Potential Good Evaluation Complexity Number of Personal Factors/Comorbidities 3 or More Number of Body Systems Impaired 4 or More Clinical Presentation at Evaluation Evolving Impairments Impairments Activity Tolerance,Balance, Functional Activities, Functional Mobility,Gait,Pain, Posture,ROM,Soft Tissue Mobility,Strength Goals SLS Mcfp Goal (LTG) Pt will be able to do SLS 15 sec B w/o lat lean or UE use or pain to show iproved balance and stability. LTG Duration 09/01/21 ROM Short Term Goal (STG) Pt will have at least DF to neutral in knee ext positon. STG Duration 08/01/21 Car Head Liner Installer Goal (LTG) Pt will have AROM DF to at least 5 deg in knee ext position to improve gait mechanics. LTG Duration 09/01/21 strength Short Term Goal (STG) Pt will be indep w/ HEP STG Duration 08/01/21 Mcfp Goal (LTG) pt will have at least 3/5 LPM in all planes and 5/5 MMT to LE in all planes to show improved stability to dec instances of LEs givign out. LTG Duration 09/01/21 walking Short Term Goal (STG) Pt will be able to get 6k steps daily without inc pain greater than 4/10 in back or ankle. STG Duration 08/01/21 Mcfp Goal (LTG) pt will be able to go for walks for exercise with no more than 3/10 pain in ankle or back. LTG Duration 09/01/21 LEFS Impairment 53/80 Mcfp Goal (LTG) Pt will improve LEFS score to at least 65/80 in order to show increase in functional ability. LTG Duration 09/01/21 Assessment Summary Assessment Pt presents w/chronic L ankle pain for about 25 years since fracture and signficiant sprain w/surgery w/removal of scar tissue 16 years ago w/ only some relief. Pt had episode of LBP w/radiculopathy starting last year that has gotten a little better w/less radicular pain but still LBP and weakness in RLE. W/BLE weakness, pt has felt unstable and feels concered about falls. She has not been able to increase walking d/t increased L ankle pain although walking does help her back. She is severely limited in functional moblity and would benefit from skilled PT to return to more normal activity w/o inc pain. Physical Therapy Plan Frequency and Duration Frequency of Treatment 1-2x/week Duration of Treatment 2 months Plan of Care Start Date 07/02/21 Plan of Care End Date 09/01/21 Therapeutic Interventions Therapeutic Interventions Aquatic Therapy,Balance Training,Coordination Training ,Gait Training,Home Exercise Program,Joint Mobilizations, Manual Therapy,Neuromuscular Re-education,Patient/Caregiver Education,Self-Care/Home Management,Soft Tissue Mobilization,Taping, Therapeutic Activities, Therapeutic Exercises Modalities Cold Pack/Ice Massage,Electric Stimulation,Hot Packs, Infrared Therapy,Iontophoresis ,Traction- Mechanical, Ultrasound Next Visit Focus/Plan Next Note Type Treatment Note Next Visit Plan do short visits d/t insurances limits w/units, bridges, supine core facilitation, try semitandem or tandem balance ( lower level balance challenges as SLS is painful), hip hinge w/progession to squat if pt able, calf stretches STM to peroneal, L ankle mobs for DF Plan of Care Dates Plan of Care Start Date 07/02/21 Plan of Care End Date 09/01/21 Electronically Signed by: Edilia Dowling, PT 07/02/21 [id number] Please Sign and Return: I have reviewed this Plan of Care and certify that the skilled therapy services above are required to meet the patient?s needs. Physician Signature Date Printed Name and Credentials Clinical Instructor Signature Printed Name and Credentials
--- NOTE | 2021-07-13 10:38 | PT.OTN ---
Current Diagnoses Pain in unspecified ankle and joints of unspecified foot (07/13/21) Lumbago with sciatica, right side (07/13/21) Muscle weakness (generalized) (07/13/21) Difficulty in walking, not elsewhere classified (07/13/21) Unspecified abnormalities of gait and mobility (07/13/21) Abnormal posture (07/13/21) Physical Therapy Treatment Note PT-OP-A Visit Information Start: 06/28/21 13:42 Freq: Status: Active Protocol: Document 07/13/21 10:24 OF (Rec: 07/13/21 10:38 OF [email or web address]) Out-Patient Physical Therapy Visit Information Visit Information Visit Type Treatment Note Visit Note HEP=gastroc stretch (education for knee to be extended), rolling pin on peroneals, bridges on heels Visit Start Time 09:45 Visit Stop Time 10:22 Total Visit Minutes 37 Visit Number 2 PT-OP-B Current Condition Start: 06/28/21 13:42 Freq: Status: Active Protocol: Document 07/02/21 09:33 [facility] (Rec: 07/02/21 12:07 [facility] [id number]) Current Condition History of Current Condition Current Complaints LBP w/radicaular R sided, L ankle, trouble walking History of Current Condition Pt reports at age 10-11 pt broke ankle on trampoline ( buckle fracture on head of one of bones and sprain). Did PT and wore boot but never really healed. Father is an ER MD and they went through lots of testing and they did exploritory surgery in 2004 which found scar tissue and took that out and that helped. notes yani has arthritis now. She has pain with standing and walking extended (concrete worse tahn dirt). If she steps back and to L, then her ankle goes out. She has sprained both of them mult times. 2019 pt ruptured disc L4-5 with pain down R leg. She did PT for that which she doesn't feel like was good therapy. She had a spine injection and that gave her more pain and it set her back really far. She had already used up her insurance benefits of PT so did some exercises on her own. Pain is now only in back mostly but she still has it shoot down and numbness occ. She now has pain in L lat lower leg which is new. Normally pain is ant lat ankle . She wants to be able to walk in order to lose weight to help her with her ortho injuries but can't walk d/t pain. She wants to prevent herself from falling d/t instability. Feels like both legs are weak. She can get down into a squat but cannot hold it long d/t pain in L lat ankle and has to get out of that position. Pt fell down stairs d/t slipping as one leg went out from under her and other couldn't hold her. She was starting to inc each month by 500 steps to inc walking but then L piriformist started tightening up and she had to back off. On a good day now, she can do 6k steps. 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 Prior Treatments and Tests PT 1997 for ankle, surgery 2004 for ankle scar tissue, saw in [place] that wanted to do spinal fusion, Saw network and threat support specialist that said only slight R buldge that barely touches spinal cord, PT for mult things in past Treatment Goals Patient/Caregiver Goals Get as close to normal as possible, find out what cause pain to shoot up ankle to dec that, work on mm to strengthen to avoid instability w/step backa nd to side, back to walking more PT-OP-C Subjective Start: 06/28/21 13:42 Freq: Status: Active Protocol: Document 07/13/21 10:24 OF (Rec: 07/13/21 10:38 OF [email or web address]) OP-PT Subjective Patient Comments Patient Comments pt reports ankle pain daily, lumbar pain improving since onset Patient Reported Progress Same OP-PT Pain Assessment Pain Assessment Grid Paper Pain Assessment Grid Completed No Location L ankle Pain Location Details ant lat and lat lower leg Scale Used 1-3/10 at rest; 5/10 Description Aching,With Movement Frequency Constant Pain Aggravating Factors Standing,Walking Other Pain Aggravating Factors squatting, change of weather, concrete, cold Pain Alleviating Factors Heat Other Pain Alleviating Factors traction of ankle (only during that) PT-OP-D Balance Start: 06/28/21 13:42 Freq: Status: Active Protocol: Document 07/02/21 09:33 [facility] (Rec: 07/02/21 12:07 [facility] [id number]) Balance Tests Single Limb Standing Single Limb- Right 20 sec lat shear of hip and UE reached out for balance Single Limb- Left 8 sec lat shear of hip and UE reached out for balance-pain PT-OP-F Manual Assessment Start: 06/28/21 13:42 Freq: Status: Active Protocol: Document 07/02/21 09:33 [facility] (Rec: 07/02/21 12:07 [facility] [id number]) Manual Assessments Soft Tissue Assessment Soft Tissue Mobility Assessment tenderness L ant talus, peroneal mm L Joint Mobility Assessment Joint Mobility Assessment iliac crest slightly high on L , equal greater trochanter ; rearfoot valgus L, forefoot valgus R>L PT-OP-G Mobility & Gait Start: 06/28/21 13:42 Freq: Status: Active Protocol: Document 07/02/21 09:33 [facility] (Rec: 07/02/21 12:07 [facility] [id number]) OP Gait Assessment Comments Gait Comments Dec stance time on LLE with no push off from LLE, no R UE swing, lat lean over LLE PT-OP-J Posture/Palpation/Skin Start: 06/28/21 13:42 Freq: Status: Active Protocol: Document 07/02/21 09:33 [facility] (Rec: 07/02/21 12:07 [facility] [id number]) Posture Evaluation [facility] Postural Classification System Endy Postural Classifications Posterior/Posterior Vertebral Compression Test 1 Lumbar Protective Mechanism Left AP 0 Lumbar Protective Mechanism Right AP 0 Lumbar Protective Mechanism Left PA 0 Lumbar Protective Mechanism Right PA 0 PT-OP-K Range of Motion Start: 06/28/21 13:42 Freq: Status: Active Protocol: Document 07/02/21 09:33 [facility] (Rec: 07/02/21 12:07 [facility] [id number]) Ankle and Foot Goniometric Range of Motion Ankle and Foot Right Active Dorsiflexion with Knee Flexed 2 Dorsiflexion with Knee Extended 5 Plantarflexion 60 Inversion 40 Eversion 19 Comments lacking DF to neutral in knee ext position Left Active Dorsiflexion with Knee Flexed 0 Dorsiflexion with Knee Extended 7 Plantarflexion 60 Inversion 33 Eversion 18 Comments lacking DF to neutral in knee ext position PT-OP-L Special Tests Start: 06/28/21 13:42 Freq: Status: Active Protocol: Document 07/02/21 09:33 [facility] (Rec: 07/02/21 12:07 [facility] [id number]) Special Tests Foot/Ankle Special Tests Talor Tilt Test Results neg Anterior Draw Test Results neg Neural Special Tests- Lower Body SLR Test Results neg -good HS mobility slump Test Results positive R PT-OP-M Strength Start: 06/28/21 13:42 Freq: Status: Active Protocol: Document 07/02/21 09:33 [facility] (Rec: 07/02/21 12:07 [facility] [id number]) Hip Strength Hip Manual Muscle Testing Right Flexion (L2) 4 Good Extension (S1) 3+ Fair+ Abduction 3+ Fair+ External Rotation 4 Good Internal Rotation 4 Good Left Flexion (L2) 3+ Fair+ Extension (S1) 3 Fair Abduction 3+ Fair+ External Rotation 4- Good- Internal Rotation 4- Good- Knee Strength Knee Manual Muscle Testing Right Flexion (S2) 5 Normal Extension (L3) 5 Normal Left Flexion (S2) 4 Good Extension (L3) 5 Normal Ankle/Foot Strength Ankle and Foot Manual Muscle Testing Right Dorsiflexion (L4) 5 Normal Plantarflexion (S1) 4+ Good+ Inversion 5 Normal Eversion (S1) 5 Normal Comments 15 heel raises Left Dorsiflexion (L4) 4+ Good+ Plantarflexion (S1) 4- Good- Inversion 4 Good Eversion (S1) 5 Normal Comments 12 heel raises w/difficulty keeping knee straight PT-OP-Q Treatments Start: 06/28/21 13:42 Freq: Status: Active Protocol: Document 07/13/21 10:24 OF (Rec: 07/13/21 10:38 OF [email or web address]) Cardio Equipment Elliptical Duration (Minutes) 5 Resistance 3 Therapeutic Exercises Supine Exercises bridges on heels Side bilateral Reps/Minutes 3x5 Comments cues for glutes, fatigue in peroneals on L Standing Exercises gastroc stretch Side bilateral Equipment Used MOON Reps/Minutes [id number] Manual Therapy Treatment Joint Mobilizations fibular head Direction a/p Grade III Reps/Duration 5min talar Direction a/p Grade III Reps/Duration 5min Comments including MWM for increased dorsiflexion Manual Traction L ankle Body Position Supine Self-Care/Home Management Treatment Education Patient Education Body Mechanics,Home Exercise Program,Pain Management Other Education pt educated upon spinal ext, she has a good understanding of self tx for lumbar pain. PT-OP-T Assessment and Plan Start: 06/28/21 13:42 Freq: Status: Active Protocol: Document 07/13/21 10:24 OF (Rec: 07/13/21 10:38 OF [email or web address]) Physical Therapy Assessment Rehab Potential Rehabilitation Potential Good Evaluation Complexity Number of Personal Factors/Comorbidities 3 or More Number of Body Systems Impaired 4 or More Clinical Presentation at Evaluation Evolving Impairments Impairments Activity Tolerance,Balance, Functional Activities, Functional Mobility,Gait,Pain, Posture,ROM,Soft Tissue Mobility,Strength Goals SLS Group Home Goal (LTG) Pt will be able to do SLS 15 sec B w/o lat lean or UE use or pain to show iproved balance and stability. LTG Duration 09/01/21 ROM Short Term Goal (STG) Pt will have at least DF to neutral in knee ext positon. STG Duration 08/01/21 Group Home Goal (LTG) Pt will have AROM DF to at least 5 deg in knee ext position to improve gait mechanics. LTG Duration 09/01/21 strength Short Term Goal (STG) Pt will be indep w/ HEP STG Duration 08/01/21 Group Home Goal (LTG) pt will have at least 3/5 LPM in all planes and 5/5 MMT to LE in all planes to show improved stability to dec instances of LEs givign out. LTG Duration 09/01/21 walking Short Term Goal (STG) Pt will be able to get 6k steps daily without inc pain greater than 4/10 in back or ankle. STG Duration 08/01/21 Magnetic Resonance Imaging Director Goal (LTG) pt will be able to go for walks for exercise with no more than 3/10 pain in ankle or back. LTG Duration 09/01/21 LEFS Impairment 53/80 Group Home Goal (LTG) Pt will improve LEFS score to at least 65/80 in order to show increase in functional ability. LTG Duration 09/01/21 Progress Towards Goals Progress Towards Goals Progressing Toward Goals Assessment Summary Assessment Lis reports improvement in her lumbar pain, limited radicular symptoms on R. She has consistent ankle pain. Pain with Mobilizations and MWM. Advised to perform HEP for STM at peroneals, gastroc stretching, bridges on heels. Physical Therapy Plan Frequency and Duration Frequency of Treatment 1-2x/week Duration of Treatment 2 months Plan of Care Start Date 07/02/21 Plan of Care End Date 09/01/21 Therapeutic Interventions Therapeutic Interventions Aquatic Therapy,Balance Training,Coordination Training ,Gait Training,Home Exercise Program,Joint Mobilizations, Manual Therapy,Neuromuscular Re-education,Patient/Caregiver Education,Self-Care/Home Management,Soft Tissue Mobilization,Taping, Therapeutic Activities, Therapeutic Exercises Modalities Cold Pack/Ice Massage,Electric Stimulation,Hot Packs, Infrared Therapy,Iontophoresis ,Traction- Mechanical, Ultrasound Next Visit Focus/Plan Next Note Type Treatment Note Next Visit Plan assess response to mobs, gastroc stretching, bridges. do short visits d/t insurances limits w/units, bridges, supine core facilitation, try semitandem or tandem balance ( lower level balance challenges as SLS is painful), hip hinge w/progession to squat if pt able, calf stretches STM to peroneal, L ankle mobs for DF
--- NOTE | 2021-07-20 13:04 | PT.OTN ---
Current Diagnoses Pain in unspecified ankle and joints of unspecified foot (07/20/21) Lumbago with sciatica, right side (07/20/21) Muscle weakness (generalized) (07/20/21) Difficulty in walking, not elsewhere classified (07/20/21) Unspecified abnormalities of gait and mobility (07/20/21) Abnormal posture (07/20/21) Physical Therapy Treatment Note PT-OP-A Visit Information Start: 06/28/21 13:42 Freq: Status: Active Protocol: Document 07/20/21 12:45 MA (Rec: 07/20/21 12:58 MA [email or web address]) Out-Patient Physical Therapy Visit Information Visit Information Visit Type Treatment Note Visit Start Time 12:00 Visit Stop Time 12:37 Total Visit Minutes 37 Visit Number 3 Number of CLIN APPLICATION SPECIALIST Visits 1 PT-OP-B Current Condition Start: 06/28/21 13:42 Freq: Status: Active Protocol: Document 07/02/21 09:33 [facility] (Rec: 07/02/21 12:07 [facility] [id number]) Current Condition History of Current Condition Current Complaints LBP w/radicaular R sided, L ankle, trouble walking History of Current Condition Pt reports at age 10-11 pt broke ankle on trampoline ( buckle fracture on head of one of bones and sprain). Did PT and wore boot but never really healed. Father is an ER MD and they went through lots of testing and they did exploritory surgery in 2004 which found scar tissue and took that out and that helped. notes yani has arthritis now. She has pain with standing and walking extended (concrete worse tahn dirt). If she steps back and to L, then her ankle goes out. She has sprained both of them mult times. 2019 pt ruptured disc L4-5 with pain down R leg. She did PT for that which she doesn't feel like was good therapy. She had a spine injection and that gave her more pain and it set her back really far. She had already used up her insurance benefits of PT so did some exercises on her own. Pain is now only in back mostly but she still has it shoot down and numbness occ. She now has pain in L lat lower leg which is new. Normally pain is ant lat ankle . She wants to be able to walk in order to lose weight to help her with her ortho injuries but can't walk d/t pain. She wants to prevent herself from falling d/t instability. Feels like both legs are weak. She can get down into a squat but cannot hold it long d/t pain in L lat ankle and has to get out of that position. Pt fell down stairs d/t slipping as one leg went out from under her and other couldn't hold her. She was starting to inc each month by 500 steps to inc walking but then L piriformist started tightening up and she had to back off. On a good day now, she can do 6k steps. 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 Prior Treatments and Tests PT 1997 for ankle, surgery 2004 for ankle scar tissue, saw in [place] that wanted to do spinal fusion, Saw field service specialist that said only slight R buldge that barely touches spinal cord, PT for mult things in past Treatment Goals Patient/Caregiver Goals Get as close to normal as possible, find out what cause pain to shoot up ankle to dec that, work on mm to strengthen to avoid instability w/step backa nd to side, back to walking more PT-OP-C Subjective Start: 06/28/21 13:42 Freq: Status: Active Protocol: Document 07/20/21 12:45 MA (Rec: 07/20/21 12:58 MA [email or web address]) OP-PT Subjective Patient Comments Patient Comments Pt reports having some numbness radiating down RLE when driving to airport this week. PT-OP-D Balance Start: 06/28/21 13:42 Freq: Status: Active Protocol: Document 07/02/21 09:33 [facility] (Rec: 07/02/21 12:07 [facility] [id number]) Balance Tests Single Limb Standing Single Limb- Right 20 sec lat shear of hip and UE reached out for balance Single Limb- Left 8 sec lat shear of hip and UE reached out for balance-pain PT-OP-F Manual Assessment Start: 06/28/21 13:42 Freq: Status: Active Protocol: Document 07/02/21 09:33 [facility] (Rec: 07/02/21 12:07 [facility] [id number]) Manual Assessments Soft Tissue Assessment Soft Tissue Mobility Assessment tenderness L ant talus, peroneal mm L Joint Mobility Assessment Joint Mobility Assessment iliac crest slightly high on L , equal greater trochanter ; rearfoot valgus L, forefoot valgus R>L PT-OP-G Mobility & Gait Start: 06/28/21 13:42 Freq: Status: Active Protocol: Document 07/02/21 09:33 [facility] (Rec: 07/02/21 12:07 [facility] [id number]) OP Gait Assessment Comments Gait Comments Dec stance time on LLE with no push off from LLE, no R UE swing, lat lean over LLE PT-OP-J Posture/Palpation/Skin Start: 06/28/21 13:42 Freq: Status: Active Protocol: Document 07/02/21 09:33 [facility] (Rec: 07/02/21 12:07 [facility] [id number]) Posture Evaluation Endy Postural Classification System Endy Postural Classifications Posterior/Posterior Vertebral Compression Test 1 Lumbar Protective Mechanism Left AP 0 Lumbar Protective Mechanism Right AP 0 Lumbar Protective Mechanism Left PA 0 Lumbar Protective Mechanism Right PA 0 PT-OP-K Range of Motion Start: 06/28/21 13:42 Freq: Status: Active Protocol: Document 07/02/21 09:33 [facility] (Rec: 07/02/21 12:07 [facility] [id number]) Ankle and Foot Goniometric Range of Motion Ankle and Foot Right Active Dorsiflexion with Knee Flexed 2 Dorsiflexion with Knee Extended 5 Plantarflexion 60 Inversion 40 Eversion 19 Comments lacking DF to neutral in knee ext position Left Active Dorsiflexion with Knee Flexed 0 Dorsiflexion with Knee Extended 7 Plantarflexion 60 Inversion 33 Eversion 18 Comments lacking DF to neutral in knee ext position PT-OP-L Special Tests Start: 06/28/21 13:42 Freq: Status: Active Protocol: Document 07/02/21 09:33 [facility] (Rec: 07/02/21 12:07 [facility] [id number]) Special Tests Foot/Ankle Special Tests Talor Tilt Test Results neg Anterior Draw Test Results neg Neural Special Tests- Lower Body SLR Test Results neg -good HS mobility slump Test Results positive R PT-OP-M Strength Start: 06/28/21 13:42 Freq: Status: Active Protocol: Document 07/02/21 09:33 [facility] (Rec: 07/02/21 12:07 [facility] [id number]) Hip Strength Hip Manual Muscle Testing Right Flexion (L2) 4 Good Extension (S1) 3+ Fair+ Abduction 3+ Fair+ External Rotation 4 Good Internal Rotation 4 Good Left Flexion (L2) 3+ Fair+ Extension (S1) 3 Fair Abduction 3+ Fair+ External Rotation 4- Good- Internal Rotation 4- Good- Knee Strength Knee Manual Muscle Testing Right Flexion (S2) 5 Normal Extension (L3) 5 Normal Left Flexion (S2) 4 Good Extension (L3) 5 Normal Ankle/Foot Strength Ankle and Foot Manual Muscle Testing Right Dorsiflexion (L4) 5 Normal Plantarflexion (S1) 4+ Good+ Inversion 5 Normal Eversion (S1) 5 Normal Comments 15 heel raises Left Dorsiflexion (L4) 4+ Good+ Plantarflexion (S1) 4- Good- Inversion 4 Good Eversion (S1) 5 Normal Comments 12 heel raises w/difficulty keeping knee straight PT-OP-Q Treatments Start: 06/28/21 13:42 Freq: Status: Active Protocol: Document 07/20/21 12:45 MA (Rec: 07/20/21 12:58 MA [email or web address]) Cardio Equipment Elliptical Duration (Minutes) 6 Resistance 3 Therapeutic Exercises Supine Exercises HS stretch Side bilateral Equipment Used belt Reps/Minutes 30 sec Comments attempted active HS stretch but pt's L shd hurt and was unable to complete bridges on heels Side bilateral Reps/Minutes 3x5 Comments cues for glutes, fatigue in peroneals on L Sitting Exercises inversion/eversion Side left Equipment Used lvl 1 TB Reps/Minutes x10 Comments attempted PF/EF but increased pain in lateral ankle Standing Exercises Calf Raises Side bilateral Equipment Used stair Reps/Minutes 10x gastroc stretch Side bilateral Equipment Used MOON Reps/Minutes [id number] Other Exercises [place] Other Exercise Name pirifomris stretch Side bilateral Reps/Minutes x30 sec ea Rolling pin Other Exercise Name peroneals, gastroc Side left Equipment Used mm roller Reps/Minutes 5 Manual Therapy Treatment Soft Tissue Mobilization Peroneals Body Location Left Mobilization Type Sustained Pressure,Trigger Point Release Intensity/Depth Moderate Body Position Sitting PT-OP-T Assessment and Plan Start: 06/28/21 13:42 Freq: Status: Active Protocol: Document 07/20/21 12:45 MA (Rec: 07/20/21 12:58 MA [email or web address]) Physical Therapy Assessment Goals SLS [facility] Assistant Goal (LTG) Pt will be able to do SLS 15 sec B w/o lat lean or UE use or pain to show iproved balance and stability. LTG Duration 09/01/21 ROM Short Term Goal (STG) Pt will have at least DF to neutral in knee ext positon. STG Duration 08/01/21 [facility] Assistant Goal (LTG) Pt will have AROM DF to at least 5 deg in knee ext position to improve gait mechanics. LTG Duration 09/01/21 strength Short Term Goal (STG) Pt will be indep w/ HEP STG Duration 08/01/21 [facility] Assistant Goal (LTG) pt will have at least 3/5 LPM in all planes and 5/5 MMT to LE in all planes to show improved stability to dec instances of LEs givign out. LTG Duration 09/01/21 walking Short Term Goal (STG) Pt will be able to get 6k steps daily without inc pain greater than 4/10 in back or ankle. STG Duration 08/01/21 Retirement Goal (LTG) pt will be able to go for walks for exercise with no more than 3/10 pain in ankle or back. LTG Duration 09/01/21 LEFS Impairment 53/80 Retirement Goal (LTG) Pt will improve LEFS score to at least 65/80 in order to show increase in functional ability. LTG Duration 09/01/21 Assessment Summary Assessment Pt reports improved radicular symptoms down RLE when performing piriformis stretch at home. Attempted active HS stretch supine from 90/90 but pt c/o L shd pain from recently diagonsed acromion inflammation, likely AC jt inflammation, and is unable to hold back of leg for stretch. Her lateral L ankle continues to give her pain and she had increased soreness after last appt lasting ~48 hours. Added calf stretch, calf raises, piriformis stretch, bridges and inversion/eversion with resistance to HEP. Pt has increased pain on posterior lateral ankle when performing ankle PF/DF with resistance band but does not have pain when doing calf raises from floor. Physical Therapy Plan Frequency and Duration Frequency of Treatment 1-2x/week Duration of Treatment 2 months Plan of Care Start Date 07/02/21 Plan of Care End Date 09/01/21 Therapeutic Interventions Therapeutic Interventions Aquatic Therapy,Balance Training,Coordination Training ,Gait Training,Home Exercise Program,Joint Mobilizations, Manual Therapy,Neuromuscular Re-education,Patient/Caregiver Education,Self-Care/Home Management,Soft Tissue Mobilization,Taping, Therapeutic Activities, Therapeutic Exercises Modalities Cold Pack/Ice Massage,Electric Stimulation,Hot Packs, Infrared Therapy,Iontophoresis ,Traction- Mechanical, Ultrasound Next Visit Focus/Plan Next Note Type Treatment Note Next Visit Plan work on gait do short visits d/t insurances limits w/units, bridges, supine core facilitation, try semitandem or tandem balance ( lower level balance challenges as SLS is painful), hip hinge w/progession to squat if pt able, calf stretches STM to peroneal, L ankle mobs for DF
--- NOTE | 2021-07-26 10:35 | PT.OTN ---
Current Diagnoses Pain in unspecified ankle and joints of unspecified foot (07/26/21) Lumbago with sciatica, right side (07/26/21) Muscle weakness (generalized) (07/26/21) Difficulty in walking, not elsewhere classified (07/26/21) Unspecified abnormalities of gait and mobility (07/26/21) Abnormal posture (07/26/21) Physical Therapy Treatment Note PT-OP-A Visit Information Start: 06/28/21 13:42 Freq: Status: Active Protocol: Document 07/26/21 09:49 [facility] (Rec: 07/26/21 10:35 [facility] [id number]) Out-Patient Physical Therapy Visit Information Visit Information Visit Type Treatment Note Visit Note short visits d/t insurance limits Visit Start Time 09:50 Visit Stop Time 10:26 Total Visit Minutes 36 Visit Number 4 Number of MANAGER PERSONAL Visits 0 PT-OP-B Current Condition Start: 06/28/21 13:42 Freq: Status: Active Protocol: Document 07/02/21 09:33 [facility] (Rec: 07/02/21 12:07 [facility] [id number]) Current Condition History of Current Condition Current Complaints LBP w/radicaular R sided, L ankle, trouble walking History of Current Condition Pt reports at age 10-11 pt broke ankle on trampoline ( buckle fracture on head of one of bones and sprain). Did PT and wore boot but never really healed. Father is an ER MD and they went through lots of testing and they did exploritory surgery in 2004 which found scar tissue and took that out and that helped. notes yani has arthritis now. She has pain with standing and walking extended (concrete worse tahn dirt). If she steps back and to L, then her ankle goes out. She has sprained both of them mult times. 2020 pt ruptured disc L4-5 with pain down R leg. She did PT for that which she doesn't feel like was good therapy. She had a spine injection and that gave her more pain and it set her back really far. She had already used up her insurance benefits of PT so did some exercises on her own. Pain is now only in back mostly but she still has it shoot down and numbness occ. She now has pain in L lat lower leg which is new. Normally pain is ant lat ankle . She wants to be able to walk in order to lose weight to help her with her ortho injuries but can't walk d/t pain. She wants to prevent herself from falling d/t instability. Feels like both legs are weak. She can get down into a squat but cannot hold it long d/t pain in L lat ankle and has to get out of that position. Pt fell down stairs d/t slipping as one leg went out from under her and other couldn't hold her. She was starting to inc each month by 500 steps to inc walking but then L piriformist started tightening up and she had to back off. On a good day now, she can do 6k steps. 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 Prior Treatments and Tests PT 1997 for ankle, surgery 2004 for ankle scar tissue, saw in [place] that wanted to do spinal fusion, Saw environmental education specialist that said only slight R buldge that barely touches spinal cord, PT for mult things in past Treatment Goals Patient/Caregiver Goals Get as close to normal as possible, find out what cause pain to shoot up ankle to dec that, work on mm to strengthen to avoid instability w/step backa nd to side, back to walking more PT-OP-C Subjective Start: 06/28/21 13:42 Freq: Status: Active Protocol: Document 07/26/21 09:49 [facility] (Rec: 07/26/21 10:35 [facility] [id number]) OP-PT Subjective Patient Comments Patient Comments Pt reports soreness after sessions and notes back is sore today PT-OP-D Balance Start: 06/28/21 13:42 Freq: Status: Active Protocol: Document 07/02/21 09:33 [facility] (Rec: 07/02/21 12:07 [facility] [id number]) Balance Tests Single Limb Standing Single Limb- Right 20 sec lat shear of hip and UE reached out for balance Single Limb- Left 8 sec lat shear of hip and UE reached out for balance-pain PT-OP-F Manual Assessment Start: 06/28/21 13:42 Freq: Status: Active Protocol: Document 07/02/21 09:33 [facility] (Rec: 07/02/21 12:07 [facility] [id number]) Manual Assessments Soft Tissue Assessment Soft Tissue Mobility Assessment tenderness L ant talus, peroneal mm L Joint Mobility Assessment Joint Mobility Assessment iliac crest slightly high on L , equal greater trochanter ; rearfoot valgus L, forefoot valgus R>L PT-OP-G Mobility & Gait Start: 06/28/21 13:42 Freq: Status: Active Protocol: Document 07/02/21 09:33 [facility] (Rec: 07/02/21 12:07 [facility] [id number]) OP Gait Assessment Comments Gait Comments Dec stance time on LLE with no push off from LLE, no R UE swing, lat lean over LLE PT-OP-J Posture/Palpation/Skin Start: 06/28/21 13:42 Freq: Status: Active Protocol: Document 07/02/21 09:33 [facility] (Rec: 07/02/21 12:07 [facility] [id number]) Posture Evaluation [facility] Postural Classification System [facility] Postural Classifications Posterior/Posterior Vertebral Compression Test 1 Lumbar Protective Mechanism Left AP 0 Lumbar Protective Mechanism Right AP 0 Lumbar Protective Mechanism Left PA 0 Lumbar Protective Mechanism Right PA 0 PT-OP-K Range of Motion Start: 06/28/21 13:42 Freq: Status: Active Protocol: Document 07/02/21 09:33 [facility] (Rec: 07/02/21 12:07 [facility] [id number]) Ankle and Foot Goniometric Range of Motion Ankle and Foot Right Active Dorsiflexion with Knee Flexed 2 Dorsiflexion with Knee Extended 5 Plantarflexion 60 Inversion 40 Eversion 19 Comments lacking DF to neutral in knee ext position Left Active Dorsiflexion with Knee Flexed 0 Dorsiflexion with Knee Extended 7 Plantarflexion 60 Inversion 33 Eversion 18 Comments lacking DF to neutral in knee ext position PT-OP-L Special Tests Start: 06/28/21 13:42 Freq: Status: Active Protocol: Document 07/02/21 09:33 [facility] (Rec: 07/02/21 12:07 [facility] [id number]) Special Tests Foot/Ankle Special Tests Talor Tilt Test Results neg Anterior Draw Test Results neg Neural Special Tests- Lower Body SLR Test Results neg -good HS mobility slump Test Results positive R PT-OP-M Strength Start: 06/28/21 13:42 Freq: Status: Active Protocol: Document 07/02/21 09:33 [facility] (Rec: 07/02/21 12:07 [facility] [id number]) Hip Strength Hip Manual Muscle Testing Right Flexion (L2) 4 Good Extension (S1) 3+ Fair+ Abduction 3+ Fair+ External Rotation 4 Good Internal Rotation 4 Good Left Flexion (L2) 3+ Fair+ Extension (S1) 3 Fair Abduction 3+ Fair+ External Rotation 4- Good- Internal Rotation 4- Good- Knee Strength Knee Manual Muscle Testing Right Flexion (S2) 5 Normal Extension (L3) 5 Normal Left Flexion (S2) 4 Good Extension (L3) 5 Normal Ankle/Foot Strength Ankle and Foot Manual Muscle Testing Right Dorsiflexion (L4) 5 Normal Plantarflexion (S1) 4+ Good+ Inversion 5 Normal Eversion (S1) 5 Normal Comments 15 heel raises Left Dorsiflexion (L4) 4+ Good+ Plantarflexion (S1) 4- Good- Inversion 4 Good Eversion (S1) 5 Normal Comments 12 heel raises w/difficulty keeping knee straight PT-OP-Q Treatments Start: 06/28/21 13:42 Freq: Status: Active Protocol: Document 07/26/21 09:49 [facility] (Rec: 07/26/21 10:35 [facility] [id number]) Manual Therapy Treatment Joint Mobilizations MT Joint L 2&3 AP cuneiforms Joint L Direction gapping FM calcaneus Joint R Direction distraction & AP, lat glide talar Joint R Direction distraction & AP Comments w/passive DF PT-OP-T Assessment and Plan Start: 06/28/21 13:42 Freq: Status: Active Protocol: Document 07/26/21 09:49 [facility] (Rec: 07/26/21 10:35 [facility] [id number]) Physical Therapy Assessment Goals SLS Chemical Instrumentation Officer Goal (LTG) Pt will be able to do SLS 15 sec B w/o lat lean or UE use or pain to show iproved balance and stability. LTG Duration 09/01/21 ROM Short Term Goal (STG) Pt will have at least DF to neutral in knee ext positon. STG Duration 08/01/21 Chemical Instrumentation Officer Goal (LTG) Pt will have AROM DF to at least 5 deg in knee ext position to improve gait mechanics. LTG Duration 09/01/21 strength Short Term Goal (STG) Pt will be indep w/ HEP STG Duration 08/01/21 Halfway Goal (LTG) pt will have at least 3/5 LPM in all planes and 5/5 MMT to LE in all planes to show improved stability to dec instances of LEs givign out. LTG Duration 09/01/21 walking Short Term Goal (STG) Pt will be able to get 6k steps daily without inc pain greater than 4/10 in back or ankle. STG Duration 08/01/21 Halfway Goal (LTG) pt will be able to go for walks for exercise with no more than 3/10 pain in ankle or back. LTG Duration 09/01/21 LEFS Impairment 53/80 Halfway Goal (LTG) Pt will improve LEFS score to at least 65/80 in order to show increase in functional ability. LTG Duration 09/01/21 Assessment Summary Assessment Pt reported only inc to 2/10 in L ankle after mobs. She does well with resisted exercises w/min cueing for form Physical Therapy Plan Frequency and Duration Frequency of Treatment 1-2x/week Duration of Treatment 2 months Plan of Care Start Date 07/02/21 Plan of Care End Date 09/01/21 Next Visit Focus/Plan Next Note Type Treatment Note Next Visit Plan work on gait, assess how pt tolerated small piece of KT tape and tape for swelling of lat malleoli if tolerated do short visits d/t insurances limits w/units, bridges, supine core facilitation, try semitandem or tandem balance ( lower level balance challenges as SLS is painful), hip hinge w/progession to squat if pt able, calf stretches STM to peroneal, L ankle mobs for DF
--- NOTE | 2021-08-01 15:10 | PT.OTN ---
Current Diagnoses Pain in unspecified ankle and joints of unspecified foot (08/01/21) Lumbago with sciatica, right side (08/01/21) Muscle weakness (generalized) (08/01/21) Difficulty in walking, not elsewhere classified (08/01/21) Unspecified abnormalities of gait and mobility (08/01/21) Abnormal posture (08/01/21) Physical Therapy Treatment Note PT-OP-A Visit Information Start: 06/28/21 13:42 Freq: Status: Active Protocol: Document 08/01/21 14:33 [facility] (Rec: 08/01/21 15:10 [facility] [id number]) Out-Patient Physical Therapy Visit Information Visit Information Visit Type Treatment Note Visit Note Short visits d/t insurance limits Visit Start Time 14:30 Visit Stop Time 15:05 Total Visit Minutes 35 Visit Number 5 Number of FLATWORK PRESSER Visits 1 PT-OP-B Current Condition Start: 06/28/21 13:42 Freq: Status: Active Protocol: Document 07/02/21 09:33 [facility] (Rec: 07/02/21 12:07 [facility] [id number]) Current Condition History of Current Condition Current Complaints LBP w/radicaular R sided, L ankle, trouble walking History of Current Condition Pt reports at age 10-11 pt broke ankle on trampoline ( buckle fracture on head of one of bones and sprain). Did PT and wore boot but never really healed. Father is an ER MD and they went through lots of testing and they did exploritory surgery in 2004 which found scar tissue and took that out and that helped. notes yani has arthritis now. She has pain with standing and walking extended (concrete worse tahn dirt). If she steps back and to L, then her ankle goes out. She has sprained both of them mult times. 2020 pt ruptured disc L4-5 with pain down R leg. She did PT for that which she doesn't feel like was good therapy. She had a spine injection and that gave her more pain and it set her back really far. She had already used up her insurance benefits of PT so did some exercises on her own. Pain is now only in back mostly but she still has it shoot down and numbness occ. She now has pain in L lat lower leg which is new. Normally pain is ant lat ankle . She wants to be able to walk in order to lose weight to help her with her ortho injuries but can't walk d/t pain. She wants to prevent herself from falling d/t instability. Feels like both legs are weak. She can get down into a squat but cannot hold it long d/t pain in L lat ankle and has to get out of that position. Pt fell down stairs d/t slipping as one leg went out from under her and other couldn't hold her. She was starting to inc each month by 500 steps to inc walking but then L piriformist started tightening up and she had to back off. On a good day now, she can do 6k steps. 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 Prior Treatments and Tests PT 1997 for ankle, surgery 2004 for ankle scar tissue, saw in [place] that wanted to do spinal fusion, Saw learning design specialist that said only slight R buldge that barely touches spinal cord, PT for mult things in past Treatment Goals Patient/Caregiver Goals Get as close to normal as possible, find out what cause pain to shoot up ankle to dec that, work on mm to strengthen to avoid instability w/step backa nd to side, back to walking more PT-OP-C Subjective Start: 06/28/21 13:42 Freq: Status: Active Protocol: Document 08/01/21 14:33 [facility] (Rec: 08/01/21 15:10 [facility] [id number]) OP-PT Subjective Patient Comments Patient Comments Pt reports flare up of IBS. She states her ankle is feeling a little better and her back is about a 3/10 today PT-OP-D Balance Start: 06/28/21 13:42 Freq: Status: Active Protocol: Document 07/02/21 09:33 [facility] (Rec: 07/02/21 12:07 [facility] [id number]) Balance Tests Single Limb Standing Single Limb- Right 20 sec lat shear of hip and UE reached out for balance Single Limb- Left 8 sec lat shear of hip and UE reached out for balance-pain PT-OP-F Manual Assessment Start: 06/28/21 13:42 Freq: Status: Active Protocol: Document 07/02/21 09:33 [facility] (Rec: 07/02/21 12:07 [facility] [id number]) Manual Assessments Soft Tissue Assessment Soft Tissue Mobility Assessment tenderness L ant talus, peroneal mm L Joint Mobility Assessment Joint Mobility Assessment iliac crest slightly high on L , equal greater trochanter ; rearfoot valgus L, forefoot valgus R>L PT-OP-G Mobility & Gait Start: 06/28/21 13:42 Freq: Status: Active Protocol: Document 07/02/21 09:33 [facility] (Rec: 07/02/21 12:07 [facility] [id number]) OP Gait Assessment Comments Gait Comments Dec stance time on LLE with no push off from LLE, no R UE swing, lat lean over LLE PT-OP-J Posture/Palpation/Skin Start: 06/28/21 13:42 Freq: Status: Active Protocol: Document 07/02/21 09:33 [facility] (Rec: 07/02/21 12:07 [facility] [id number]) Posture Evaluation [facility] Postural Classification System [facility] Postural Classifications Posterior/Posterior Vertebral Compression Test 1 Lumbar Protective Mechanism Left AP 0 Lumbar Protective Mechanism Right AP 0 Lumbar Protective Mechanism Left PA 0 Lumbar Protective Mechanism Right PA 0 PT-OP-K Range of Motion Start: 06/28/21 13:42 Freq: Status: Active Protocol: Document 07/02/21 09:33 [facility] (Rec: 07/02/21 12:07 [facility] [id number]) Ankle and Foot Goniometric Range of Motion Ankle and Foot Right Active Dorsiflexion with Knee Flexed 2 Dorsiflexion with Knee Extended 5 Plantarflexion 60 Inversion 40 Eversion 19 Comments lacking DF to neutral in knee ext position Left Active Dorsiflexion with Knee Flexed 0 Dorsiflexion with Knee Extended 7 Plantarflexion 60 Inversion 33 Eversion 18 Comments lacking DF to neutral in knee ext position PT-OP-L Special Tests Start: 06/28/21 13:42 Freq: Status: Active Protocol: Document 07/02/21 09:33 [facility] (Rec: 07/02/21 12:07 [facility] [id number]) Special Tests Foot/Ankle Special Tests Talor Tilt Test Results neg Anterior Draw Test Results neg Neural Special Tests- Lower Body SLR Test Results neg -good HS mobility slump Test Results positive R PT-OP-M Strength Start: 06/28/21 13:42 Freq: Status: Active Protocol: Document 07/02/21 09:33 [facility] (Rec: 07/02/21 12:07 [facility] [id number]) Hip Strength Hip Manual Muscle Testing Right Flexion (L2) 4 Good Extension (S1) 3+ Fair+ Abduction 3+ Fair+ External Rotation 4 Good Internal Rotation 4 Good Left Flexion (L2) 3+ Fair+ Extension (S1) 3 Fair Abduction 3+ Fair+ External Rotation 4- Good- Internal Rotation 4- Good- Knee Strength Knee Manual Muscle Testing Right Flexion (S2) 5 Normal Extension (L3) 5 Normal Left Flexion (S2) 4 Good Extension (L3) 5 Normal Ankle/Foot Strength Ankle and Foot Manual Muscle Testing Right Dorsiflexion (L4) 5 Normal Plantarflexion (S1) 4+ Good+ Inversion 5 Normal Eversion (S1) 5 Normal Comments 15 heel raises Left Dorsiflexion (L4) 4+ Good+ Plantarflexion (S1) 4- Good- Inversion 4 Good Eversion (S1) 5 Normal Comments 12 heel raises w/difficulty keeping knee straight PT-OP-Q Treatments Start: 06/28/21 13:42 Freq: Status: Active Protocol: Document 08/01/21 14:33 [facility] (Rec: 08/01/21 15:10 [facility] [id number]) Therapeutic Exercises Supine Exercises HS stretch Side bilateral Equipment Used belt Reps/Minutes 30 sec Comments bending knee to 90/90 and back up bridges on heels Side bilateral Reps/Minutes 3x5 Comments cues for glutes, fatigue in peroneals on L Sitting Exercises inversion/eversion Side left Equipment Used lvl 1 TB Reps/Minutes 2x10 Standing Exercises gastroc stretch Side bilateral Equipment Used MOON Reps/Minutes [id number] Other Exercises [place] Other Exercise Name pirifomris stretch Side bilateral Reps/Minutes x30 sec ea Gait Training Gait Activity Heel/Toe Surface solid Distance/Duration 10' Treatment Focus improving gait-L heel strike Comments increasing L stance time Manual Therapy Treatment Soft Tissue Mobilization Peroneals Body Location Left Mobilization Type Sustained Pressure,Trigger Point Release Intensity/Depth Moderate Body Position Sitting PT-OP-T Assessment and Plan Start: 06/28/21 13:42 Freq: Status: Active Protocol: Document 08/01/21 14:33 [facility] (Rec: 08/01/21 15:10 [facility] [id number]) Physical Therapy Assessment Goals SLS Group Home Goal (LTG) Pt will be able to do SLS 15 sec B w/o lat lean or UE use or pain to show iproved balance and stability. LTG Duration 09/01/21 ROM Short Term Goal (STG) Pt will have at least DF to neutral in knee ext positon. STG Duration 08/01/21 Group Home Goal (LTG) Pt will have AROM DF to at least 5 deg in knee ext position to improve gait mechanics. LTG Duration 09/01/21 strength Short Term Goal (STG) Pt will be indep w/ HEP STG Duration 08/01/21 Field Property Loss Specialist Goal (LTG) pt will have at least 3/5 LPM in all planes and 5/5 MMT to LE in all planes to show improved stability to dec instances of LEs givign out. LTG Duration 09/01/21 walking Short Term Goal (STG) Pt will be able to get 6k steps daily without inc pain greater than 4/10 in back or ankle. STG Duration 08/01/21 Group Home Goal (LTG) pt will be able to go for walks for exercise with no more than 3/10 pain in ankle or back. LTG Duration 09/01/21 LEFS Impairment 53/80 Group Home Goal (LTG) Pt will improve LEFS score to at least 65/80 in order to show increase in functional ability. LTG Duration 09/01/21 Assessment Summary Assessment Pt is able to improve gait and increase LLE stance time after working on L heel strike activity. She requires rest breaks to control ankle pain this session. Physical Therapy Plan Frequency and Duration Frequency of Treatment 1-2x/week Duration of Treatment 2 months Plan of Care Start Date 07/02/21 Plan of Care End Date 09/01/21 Therapeutic Interventions Therapeutic Interventions Aquatic Therapy,Balance Training,Coordination Training ,Gait Training,Home Exercise Program,Joint Mobilizations, Manual Therapy,Neuromuscular Re-education,Patient/Caregiver Education,Self-Care/Home Management,Soft Tissue Mobilization,Taping, Therapeutic Activities, Therapeutic Exercises Modalities Cold Pack/Ice Massage,Electric Stimulation,Hot Packs, Infrared Therapy,Iontophoresis ,Traction- Mechanical, Ultrasound Next Visit Focus/Plan Next Note Type Treatment Note Next Visit Plan work on gait, assess how pt tolerated small piece of KT tape and tape for swelling of lat malleoli if tolerated do short visits d/t insurances limits w/units, bridges, supine core facilitation, try semitandem or tandem balance ( lower level balance challenges as SLS is painful), hip hinge w/progession to squat if pt able, calf stretches STM to peroneal, L ankle mobs for DF
--- NOTE | 2021-08-10 11:59 | PT.OTN ---
Current Diagnoses Pain in unspecified ankle and joints of unspecified foot (08/10/21) Lumbago with sciatica, right side (08/10/21) Muscle weakness (generalized) (08/10/21) Difficulty in walking, not elsewhere classified (08/10/21) Unspecified abnormalities of gait and mobility (08/10/21) Abnormal posture (08/10/21) Physical Therapy Treatment Note PT-OP-A Visit Information Start: 06/28/21 13:42 Freq: Status: Active Protocol: Document 08/10/21 11:09 MA (Rec: 08/10/21 11:59 MA [id number]) Out-Patient Physical Therapy Visit Information Visit Information Visit Type Treatment Note Visit Note Short visits d/t insurance limits Visit Start Time 11:15 Visit Stop Time 11:52 Total Visit Minutes 37 Visit Number 6 Number of SAND BOBBER Visits 2 PT-OP-B Current Condition Start: 06/28/21 13:42 Freq: Status: Active Protocol: Document 07/02/21 09:33 [facility] (Rec: 07/02/21 12:07 [facility] [id number]) Current Condition History of Current Condition Current Complaints LBP w/radicaular R sided, L ankle, trouble walking History of Current Condition Pt reports at age 10-11 pt broke ankle on trampoline ( buckle fracture on head of one of bones and sprain). Did PT and wore boot but never really healed. Father is an ER MD and they went through lots of testing and they did exploritory surgery in 2004 which found scar tissue and took that out and that helped. notes yani has arthritis now. She has pain with standing and walking extended (concrete worse tahn dirt). If she steps back and to L, then her ankle goes out. She has sprained both of them mult times. 2020 pt ruptured disc L4-5 with pain down R leg. She did PT for that which she doesn't feel like was good therapy. She had a spine injection and that gave her more pain and it set her back really far. She had already used up her insurance benefits of PT so did some exercises on her own. Pain is now only in back mostly but she still has it shoot down and numbness occ. She now has pain in L lat lower leg which is new. Normally pain is ant lat ankle . She wants to be able to walk in order to lose weight to help her with her ortho injuries but can't walk d/t pain. She wants to prevent herself from falling d/t instability. Feels like both legs are weak. She can get down into a squat but cannot hold it long d/t pain in L lat ankle and has to get out of that position. Pt fell down stairs d/t slipping as one leg went out from under her and other couldn't hold her. She was starting to inc each month by 500 steps to inc walking but then L piriformist started tightening up and she had to back off. On a good day now, she can do 6k steps. 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 Prior Treatments and Tests PT 1997 for ankle, surgery 2004 for ankle scar tissue, saw in [place] that wanted to do spinal fusion, Saw process improvement specialist that said only slight R buldge that barely touches spinal cord, PT for mult things in past Treatment Goals Patient/Caregiver Goals Get as close to normal as possible, find out what cause pain to shoot up ankle to dec that, work on mm to strengthen to avoid instability w/step backa nd to side, back to walking more PT-OP-C Subjective Start: 06/28/21 13:42 Freq: Status: Active Protocol: Document 08/10/21 11:09 MA (Rec: 08/10/21 11:59 MA [id number]) OP-PT Subjective Patient Comments Patient Comments Pt reports pain in ankle and back. She thinks working on heel-toe gait is aggrevating her back and the weather is making everything worse. PT-OP-D Balance Start: 06/28/21 13:42 Freq: Status: Active Protocol: Document 07/02/21 09:33 [facility] (Rec: 07/02/21 12:07 [facility] [id number]) Balance Tests Single Limb Standing Single Limb- Right 20 sec lat shear of hip and UE reached out for balance Single Limb- Left 8 sec lat shear of hip and UE reached out for balance-pain PT-OP-F Manual Assessment Start: 06/28/21 13:42 Freq: Status: Active Protocol: Document 07/02/21 09:33 [facility] (Rec: 07/02/21 12:07 [facility] [id number]) Manual Assessments Soft Tissue Assessment Soft Tissue Mobility Assessment tenderness L ant talus, peroneal mm L Joint Mobility Assessment Joint Mobility Assessment iliac crest slightly high on L , equal greater trochanter ; rearfoot valgus L, forefoot valgus R>L PT-OP-G Mobility & Gait Start: 06/28/21 13:42 Freq: Status: Active Protocol: Document 07/02/21 09:33 [facility] (Rec: 07/02/21 12:07 [facility] [id number]) OP Gait Assessment Comments Gait Comments Dec stance time on LLE with no push off from LLE, no R UE swing, lat lean over LLE PT-OP-J Posture/Palpation/Skin Start: 06/28/21 13:42 Freq: Status: Active Protocol: Document 07/02/21 09:33 [facility] (Rec: 07/02/21 12:07 [facility] [id number]) Posture Evaluation [facility] Postural Classification System Endy Postural Classifications Posterior/Posterior Vertebral Compression Test 1 Lumbar Protective Mechanism Left AP 0 Lumbar Protective Mechanism Right AP 0 Lumbar Protective Mechanism Left PA 0 Lumbar Protective Mechanism Right PA 0 PT-OP-K Range of Motion Start: 06/28/21 13:42 Freq: Status: Active Protocol: Document 07/02/21 09:33 [facility] (Rec: 07/02/21 12:07 [facility] [id number]) Ankle and Foot Goniometric Range of Motion Ankle and Foot Right Active Dorsiflexion with Knee Flexed 2 Dorsiflexion with Knee Extended 5 Plantarflexion 60 Inversion 40 Eversion 19 Comments lacking DF to neutral in knee ext position Left Active Dorsiflexion with Knee Flexed 0 Dorsiflexion with Knee Extended 7 Plantarflexion 60 Inversion 33 Eversion 18 Comments lacking DF to neutral in knee ext position PT-OP-L Special Tests Start: 06/28/21 13:42 Freq: Status: Active Protocol: Document 07/02/21 09:33 [facility] (Rec: 07/02/21 12:07 [facility] [id number]) Special Tests Foot/Ankle Special Tests Talor Tilt Test Results neg Anterior Draw Test Results neg Neural Special Tests- Lower Body SLR Test Results neg -good HS mobility slump Test Results positive R PT-OP-M Strength Start: 06/28/21 13:42 Freq: Status: Active Protocol: Document 07/02/21 09:33 [facility] (Rec: 07/02/21 12:07 [facility] [id number]) Hip Strength Hip Manual Muscle Testing Right Flexion (L2) 4 Good Extension (S1) 3+ Fair+ Abduction 3+ Fair+ External Rotation 4 Good Internal Rotation 4 Good Left Flexion (L2) 3+ Fair+ Extension (S1) 3 Fair Abduction 3+ Fair+ External Rotation 4- Good- Internal Rotation 4- Good- Knee Strength Knee Manual Muscle Testing Right Flexion (S2) 5 Normal Extension (L3) 5 Normal Left Flexion (S2) 4 Good Extension (L3) 5 Normal Ankle/Foot Strength Ankle and Foot Manual Muscle Testing Right Dorsiflexion (L4) 5 Normal Plantarflexion (S1) 4+ Good+ Inversion 5 Normal Eversion (S1) 5 Normal Comments 15 heel raises Left Dorsiflexion (L4) 4+ Good+ Plantarflexion (S1) 4- Good- Inversion 4 Good Eversion (S1) 5 Normal Comments 12 heel raises w/difficulty keeping knee straight PT-OP-Q Treatments Start: 06/28/21 13:42 Freq: Status: Active Protocol: Document 08/10/21 11:09 MA (Rec: 08/10/21 11:59 MA [id number]) Therapeutic Exercises Sitting Exercises inversion/eversion Side left Equipment Used lvl 1 TB Reps/Minutes 2x10 Standing Exercises gastroc stretch Standing Exercise Name knee fwd to get into further DF ROM Side bilateral Equipment Used stairs Reps/Minutes [id number] Other Exercises Rolling pin Other Exercise Name peroneals, gastroc Side left Equipment Used mm roller Reps/Minutes 5 Manual Therapy Treatment Soft Tissue Mobilization Paraspinals Body Location Lumbar R side Mobilization Type Strumming,Sustained Pressure Intensity/Depth Moderate Body Position Prone Comments Pt has LUE nerve pain while laying on stomach Peroneals Body Location Left Mobilization Type Sustained Pressure,Trigger Point Release Intensity/Depth Moderate Body Position Sitting Taping L Ankle Body Location L lateral ankle Type of Tape KT tape Comments Y strip L lateral malleolus PT-OP-T Assessment and Plan Start: 06/28/21 13:42 Freq: Status: Active Protocol: Document 08/10/21 11:09 MA (Rec: 08/10/21 11:59 MA [id number]) Physical Therapy Assessment Goals SLS Penitentiary Goal (LTG) Pt will be able to do SLS 15 sec B w/o lat lean or UE use or pain to show iproved balance and stability. LTG Duration 09/01/21 ROM Short Term Goal (STG) Pt will have at least DF to neutral in knee ext positon. STG Duration 08/01/21 Research Support Specialist Goal (LTG) Pt will have AROM DF to at least 5 deg in knee ext position to improve gait mechanics. LTG Duration 09/01/21 strength Short Term Goal (STG) Pt will be indep w/ HEP STG Duration 08/01/21 Penitentiary Goal (LTG) pt will have at least 3/5 LPM in all planes and 5/5 MMT to LE in all planes to show improved stability to dec instances of LEs givign out. LTG Duration 09/01/21 walking Short Term Goal (STG) Pt will be able to get 6k steps daily without inc pain greater than 4/10 in back or ankle. STG Duration 08/01/21 Penitentiary Goal (LTG) pt will be able to go for walks for exercise with no more than 3/10 pain in ankle or back. LTG Duration 09/01/21 LEFS Impairment 53/80 Penitentiary Goal (LTG) Pt will improve LEFS score to at least 65/80 in order to show increase in functional ability. LTG Duration 09/01/21 Assessment Summary Assessment Pt is more sore today after STM to lateral ankle. She felt the KT tape worked well previously but it did not stay on longer than 24 hours. Finished session by taping L lateral malleolus and allowing pt to roll out calf with rolling pin per pt's request. Physical Therapy Plan Frequency and Duration Frequency of Treatment 1-2x/week Duration of Treatment 2 months Plan of Care Start Date 07/02/21 Plan of Care End Date 09/01/21 Therapeutic Interventions Therapeutic Interventions Aquatic Therapy,Balance Training,Coordination Training ,Gait Training,Home Exercise Program,Joint Mobilizations, Manual Therapy,Neuromuscular Re-education,Patient/Caregiver Education,Self-Care/Home Management,Soft Tissue Mobilization,Taping, Therapeutic Activities, Therapeutic Exercises Modalities Cold Pack/Ice Massage,Electric Stimulation,Hot Packs, Infrared Therapy,Iontophoresis ,Traction- Mechanical, Ultrasound Next Visit Focus/Plan Next Note Type Treatment Note Next Visit Plan work on gait, assess how pt tolerated small piece of KT tape and tape for swelling of lat malleoli if tolerated do short visits d/t insurances limits w/units, bridges, supine core facilitation, try semitandem or tandem balance ( lower level balance challenges as SLS is painful), hip hinge w/progession to squat if pt able, calf stretches STM to peroneal, L ankle mobs for DF
--- NOTE | 2021-08-17 14:44 | PT.OTN ---
Current Diagnoses Pain in unspecified ankle and joints of unspecified foot (08/17/21) Lumbago with sciatica, right side (08/17/21) Muscle weakness (generalized) (08/17/21) Difficulty in walking, not elsewhere classified (08/17/21) Unspecified abnormalities of gait and mobility (08/17/21) Abnormal posture (08/17/21) Physical Therapy Treatment Note PT-OP-A Visit Information Start: 06/28/21 13:42 Freq: Status: Active Protocol: Document 08/17/21 13:53 MA (Rec: 08/17/21 14:36 MA [id number]) Out-Patient Physical Therapy Visit Information Visit Information Visit Type Treatment Note Visit Note Short visits d/t insurance limits Visit Start Time 11:50 Visit Stop Time 12:25 Total Visit Minutes 35 Visit Number 7 Number of PRODUCT SUPPORT REP Visits 3 PT-OP-B Current Condition Start: 06/28/21 13:42 Freq: Status: Active Protocol: Document 07/02/21 09:33 [facility] (Rec: 07/02/21 12:07 [facility] [id number]) Current Condition History of Current Condition Current Complaints LBP w/radicaular R sided, L ankle, trouble walking History of Current Condition Pt reports at age 10-11 pt broke ankle on trampoline ( buckle fracture on head of one of bones and sprain). Did PT and wore boot but never really healed. Father is an ER MD and they went through lots of testing and they did exploritory surgery in 2004 which found scar tissue and took that out and that helped. notes yani has arthritis now. She has pain with standing and walking extended (concrete worse tahn dirt). If she steps back and to L, then her ankle goes out. She has sprained both of them mult times. 2019 pt ruptured disc L4-5 with pain down R leg. She did PT for that which she doesn't feel like was good therapy. She had a spine injection and that gave her more pain and it set her back really far. She had already used up her insurance benefits of PT so did some exercises on her own. Pain is now only in back mostly but she still has it shoot down and numbness occ. She now has pain in L lat lower leg which is new. Normally pain is ant lat ankle . She wants to be able to walk in order to lose weight to help her with her ortho injuries but can't walk d/t pain. She wants to prevent herself from falling d/t instability. Feels like both legs are weak. She can get down into a squat but cannot hold it long d/t pain in L lat ankle and has to get out of that position. Pt fell down stairs d/t slipping as one leg went out from under her and other couldn't hold her. She was starting to inc each month by 500 steps to inc walking but then L piriformist started tightening up and she had to back off. On a good day now, she can do 6k steps. 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 Prior Treatments and Tests PT 1997 for ankle, surgery 2004 for ankle scar tissue, saw in [place] that wanted to do spinal fusion, Saw adoption specialist that said only slight R buldge that barely touches spinal cord, PT for mult things in past Treatment Goals Patient/Caregiver Goals Get as close to normal as possible, find out what cause pain to shoot up ankle to dec that, work on mm to strengthen to avoid instability w/step backa nd to side, back to walking more PT-OP-C Subjective Start: 06/28/21 13:42 Freq: Status: Active Protocol: Document 08/17/21 13:53 MA (Rec: 08/17/21 14:36 MA [id number]) OP-PT Subjective Patient Comments Patient Comments Pt feels her back was aggrevated after lsat session and she had to stop at her grandmas houes to stretch on the way home. PT-OP-D Balance Start: 06/28/21 13:42 Freq: Status: Active Protocol: Document 07/02/21 09:33 [facility] (Rec: 07/02/21 12:07 [facility] [id number]) Balance Tests Single Limb Standing Single Limb- Right 20 sec lat shear of hip and UE reached out for balance Single Limb- Left 8 sec lat shear of hip and UE reached out for balance-pain PT-OP-F Manual Assessment Start: 06/28/21 13:42 Freq: Status: Active Protocol: Document 07/02/21 09:33 [facility] (Rec: 07/02/21 12:07 [facility] [id number]) Manual Assessments Soft Tissue Assessment Soft Tissue Mobility Assessment tenderness L ant talus, peroneal mm L Joint Mobility Assessment Joint Mobility Assessment iliac crest slightly high on L , equal greater trochanter ; rearfoot valgus L, forefoot valgus R>L PT-OP-G Mobility & Gait Start: 06/28/21 13:42 Freq: Status: Active Protocol: Document 07/02/21 09:33 [facility] (Rec: 07/02/21 12:07 [facility] [id number]) OP Gait Assessment Comments Gait Comments Dec stance time on LLE with no push off from LLE, no R UE swing, lat lean over LLE PT-OP-J Posture/Palpation/Skin Start: 06/28/21 13:42 Freq: Status: Active Protocol: Document 07/02/21 09:33 [facility] (Rec: 07/02/21 12:07 [facility] [id number]) Posture Evaluation Endy Postural Classification System Endy Postural Classifications Posterior/Posterior Vertebral Compression Test 1 Lumbar Protective Mechanism Left AP 0 Lumbar Protective Mechanism Right AP 0 Lumbar Protective Mechanism Left PA 0 Lumbar Protective Mechanism Right PA 0 PT-OP-K Range of Motion Start: 06/28/21 13:42 Freq: Status: Active Protocol: Document 07/02/21 09:33 [facility] (Rec: 07/02/21 12:07 [facility] [id number]) Ankle and Foot Goniometric Range of Motion Ankle and Foot Right Active Dorsiflexion with Knee Flexed 2 Dorsiflexion with Knee Extended 5 Plantarflexion 60 Inversion 40 Eversion 19 Comments lacking DF to neutral in knee ext position Left Active Dorsiflexion with Knee Flexed 0 Dorsiflexion with Knee Extended 7 Plantarflexion 60 Inversion 33 Eversion 18 Comments lacking DF to neutral in knee ext position PT-OP-L Special Tests Start: 06/28/21 13:42 Freq: Status: Active Protocol: Document 07/02/21 09:33 [facility] (Rec: 07/02/21 12:07 [facility] [id number]) Special Tests Foot/Ankle Special Tests Talor Tilt Test Results neg Anterior Draw Test Results neg Neural Special Tests- Lower Body SLR Test Results neg -good HS mobility slump Test Results positive R PT-OP-M Strength Start: 06/28/21 13:42 Freq: Status: Active Protocol: Document 07/02/21 09:33 [facility] (Rec: 07/02/21 12:07 [facility] [id number]) Hip Strength Hip Manual Muscle Testing Right Flexion (L2) 4 Good Extension (S1) 3+ Fair+ Abduction 3+ Fair+ External Rotation 4 Good Internal Rotation 4 Good Left Flexion (L2) 3+ Fair+ Extension (S1) 3 Fair Abduction 3+ Fair+ External Rotation 4- Good- Internal Rotation 4- Good- Knee Strength Knee Manual Muscle Testing Right Flexion (S2) 5 Normal Extension (L3) 5 Normal Left Flexion (S2) 4 Good Extension (L3) 5 Normal Ankle/Foot Strength Ankle and Foot Manual Muscle Testing Right Dorsiflexion (L4) 5 Normal Plantarflexion (S1) 4+ Good+ Inversion 5 Normal Eversion (S1) 5 Normal Comments 15 heel raises Left Dorsiflexion (L4) 4+ Good+ Plantarflexion (S1) 4- Good- Inversion 4 Good Eversion (S1) 5 Normal Comments 12 heel raises w/difficulty keeping knee straight PT-OP-Q Treatments Start: 06/28/21 13:42 Freq: Status: Active Protocol: Document 08/17/21 13:53 MA (Rec: 08/17/21 14:36 MA [id number]) Therapeutic Exercises Supine Exercises HS stretch Side bilateral Equipment Used belt Reps/Minutes 30 sec Prone Exercises Plank Prone Exercise Name elevated on forearms Reps/Minutes 3x10 sec Cobra Stretch Prone Exercise Name prone press up Reps/Minutes 2x30 Comments pt gets most pain relief from this position Standing Exercises Squats Equipment Used std height chair Reps/Minutes x10 Resisted walking Standing Exercise Name lateral/fwd/backward Side bilateral Equipment Used yellow t-band Reps/Minutes 2x20 ft ea QL stretch Side right Reps/Minutes 2x30 Comments added to HEP Manual Therapy Treatment Soft Tissue Mobilization Glute Body Location R glute med Mobilization Type Sustained Pressure,Trigger Point Release Intensity/Depth Moderate Body Position Sidelying Manual Traction RLE Details IR RLE for spinal traction Body Position Supine Reps/Duration 2x1' PT-OP-T Assessment and Plan Start: 06/28/21 13:42 Freq: Status: Active Protocol: Document 08/17/21 13:53 MA (Rec: 08/17/21 14:36 MA [id number]) Physical Therapy Assessment Goals SLS Shift Foreman Goal (LTG) Pt will be able to do SLS 15 sec B w/o lat lean or UE use or pain to show iproved balance and stability. LTG Duration 09/01/21 ROM Short Term Goal (STG) Pt will have at least DF to neutral in knee ext positon. STG Duration 08/01/21 Alf Goal (LTG) Pt will have AROM DF to at least 5 deg in knee ext position to improve gait mechanics. LTG Duration 09/01/21 strength Short Term Goal (STG) Pt will be indep w/ HEP STG Duration 08/01/21 Shift Foreman Goal (LTG) pt will have at least 3/5 LPM in all planes and 5/5 MMT to LE in all planes to show improved stability to dec instances of LEs givign out. LTG Duration 09/01/21 walking Short Term Goal (STG) Pt will be able to get 6k steps daily without inc pain greater than 4/10 in back or ankle. STG Duration 08/01/21 Shift Foreman Goal (LTG) pt will be able to go for walks for exercise with no more than 3/10 pain in ankle or back. LTG Duration 09/01/21 LEFS Impairment 53/80 Shift Foreman Goal (LTG) Pt will improve LEFS score to at least 65/80 in order to show increase in functional ability. LTG Duration 09/01/21 Assessment Summary Assessment Pt has increased LBP to 5/10 after STM to R glute med. She gets some LBP relief from traction with RLE IR and pain decreases to 3/10. Added R side QL stretch, cobra stretch , squats, elevated plank, and lateral/fwd/backward band walks to HEP. Physical Therapy Plan Frequency and Duration Frequency of Treatment 1-2x/week Duration of Treatment 2 months Plan of Care Start Date 07/02/21 Plan of Care End Date 09/01/21 Therapeutic Interventions Therapeutic Interventions Aquatic Therapy,Balance Training,Coordination Training ,Gait Training,Home Exercise Program,Joint Mobilizations, Manual Therapy,Neuromuscular Re-education,Patient/Caregiver Education,Self-Care/Home Management,Soft Tissue Mobilization,Taping, Therapeutic Activities, Therapeutic Exercises Modalities Cold Pack/Ice Massage,Electric Stimulation,Hot Packs, Infrared Therapy,Iontophoresis ,Traction- Mechanical, Ultrasound Next Visit Focus/Plan Next Note Type Treatment Note Next Visit Plan Review new HEP, assess how R sided QL stretch went due short visits d/t insurances limits w/units, bridges, supine core facilitation, try semitandem or tandem balance (lower level balance challenges as SLS is painful), hip hinge w/ progession to squat if pt able , calf stretches STM to peroneal, L ankle mobs for DF
--- NOTE | 2021-08-21 18:34 | PT.OTN ---
Current Diagnoses Pain in unspecified ankle and joints of unspecified foot (08/21/21) Lumbago with sciatica, right side (08/21/21) Muscle weakness (generalized) (08/21/21) Difficulty in walking, not elsewhere classified (08/21/21) Unspecified abnormalities of gait and mobility (08/21/21) Abnormal posture (08/21/21) Physical Therapy Treatment Note PT-OP-A Visit Information Start: 06/28/21 13:42 Freq: Status: Active Protocol: Document 08/21/21 17:54 [facility] (Rec: 08/21/21 18:34 [facility] [id number]) Out-Patient Physical Therapy Visit Information Visit Information Visit Type Treatment Note Visit Note Short visits d/t insurance limits Visit Start Time 16:53 Visit Stop Time 17:30 Total Visit Minutes 37 Visit Number 8 Number of RECRUITING SCHEDULER Visits 0 PT-OP-B Current Condition Start: 06/28/21 13:42 Freq: Status: Active Protocol: Document 07/02/21 09:33 [facility] (Rec: 07/02/21 12:07 [facility] [id number]) Current Condition History of Current Condition Current Complaints LBP w/radicaular R sided, L ankle, trouble walking History of Current Condition Pt reports at age 10-11 pt broke ankle on trampoline ( buckle fracture on head of one of bones and sprain). Did PT and wore boot but never really healed. Father is an ER MD and they went through lots of testing and they did exploritory surgery in 2004 which found scar tissue and took that out and that helped. notes yani has arthritis now. She has pain with standing and walking extended (concrete worse tahn dirt). If she steps back and to L, then her ankle goes out. She has sprained both of them mult times. 2020 pt ruptured disc L4-5 with pain down R leg. She did PT for that which she doesn't feel like was good therapy. She had a spine injection and that gave her more pain and it set her back really far. She had already used up her insurance benefits of PT so did some exercises on her own. Pain is now only in back mostly but she still has it shoot down and numbness occ. She now has pain in L lat lower leg which is new. Normally pain is ant lat ankle . She wants to be able to walk in order to lose weight to help her with her ortho injuries but can't walk d/t pain. She wants to prevent herself from falling d/t instability. Feels like both legs are weak. She can get down into a squat but cannot hold it long d/t pain in L lat ankle and has to get out of that position. Pt fell down stairs d/t slipping as one leg went out from under her and other couldn't hold her. She was starting to inc each month by 500 steps to inc walking but then L piriformist started tightening up and she had to back off. On a good day now, she can do 6k steps. 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 Prior Treatments and Tests PT 1997 for ankle, surgery 2004 for ankle scar tissue, saw in [place] that wanted to do spinal fusion, Saw helpdesk specialist that said only slight R buldge that barely touches spinal cord, PT for mult things in past Treatment Goals Patient/Caregiver Goals Get as close to normal as possible, find out what cause pain to shoot up ankle to dec that, work on mm to strengthen to avoid instability w/step backa nd to side, back to walking more PT-OP-C Subjective Start: 06/28/21 13:42 Freq: Status: Active Protocol: Document 08/21/21 17:54 [facility] (Rec: 08/21/21 18:34 [facility] [id number]) OP-PT Subjective Patient Comments Patient Comments Pt reports her back was extremely painful after manual of last PT session and had to stop at her family's house to put a hot pack on to make it home. notes she felt like it was hurting her during the activity, but didn't say anything at the time. Notes she does not walk anymore manual to lumbar spine but she does feel exercises helpa nd manual to ankle. PT-OP-D Balance Start: 06/28/21 13:42 Freq: Status: Active Protocol: Document 07/02/21 09:33 [facility] (Rec: 07/02/21 12:07 [facility] [id number]) Balance Tests Single Limb Standing Single Limb- Right 20 sec lat shear of hip and UE reached out for balance Single Limb- Left 8 sec lat shear of hip and UE reached out for balance-pain PT-OP-F Manual Assessment Start: 06/28/21 13:42 Freq: Status: Active Protocol: Document 07/02/21 09:33 [facility] (Rec: 07/02/21 12:07 [facility] [id number]) Manual Assessments Soft Tissue Assessment Soft Tissue Mobility Assessment tenderness L ant talus, peroneal mm L Joint Mobility Assessment Joint Mobility Assessment iliac crest slightly high on L , equal greater trochanter ; rearfoot valgus L, forefoot valgus R>L PT-OP-G Mobility & Gait Start: 06/28/21 13:42 Freq: Status: Active Protocol: Document 07/02/21 09:33 [facility] (Rec: 07/02/21 12:07 [facility] [id number]) OP Gait Assessment Comments Gait Comments Dec stance time on LLE with no push off from LLE, no R UE swing, lat lean over LLE PT-OP-J Posture/Palpation/Skin Start: 06/28/21 13:42 Freq: Status: Active Protocol: Document 07/02/21 09:33 [facility] (Rec: 07/02/21 12:07 [facility] [id number]) Posture Evaluation [facility] Postural Classification System Endy Postural Classifications Posterior/Posterior Vertebral Compression Test 1 Lumbar Protective Mechanism Left AP 0 Lumbar Protective Mechanism Right AP 0 Lumbar Protective Mechanism Left PA 0 Lumbar Protective Mechanism Right PA 0 PT-OP-K Range of Motion Start: 06/28/21 13:42 Freq: Status: Active Protocol: Document 07/02/21 09:33 [facility] (Rec: 07/02/21 12:07 [facility] [id number]) Ankle and Foot Goniometric Range of Motion Ankle and Foot Right Active Dorsiflexion with Knee Flexed 2 Dorsiflexion with Knee Extended 5 Plantarflexion 60 Inversion 40 Eversion 19 Comments lacking DF to neutral in knee ext position Left Active Dorsiflexion with Knee Flexed 0 Dorsiflexion with Knee Extended 7 Plantarflexion 60 Inversion 33 Eversion 18 Comments lacking DF to neutral in knee ext position PT-OP-L Special Tests Start: 06/28/21 13:42 Freq: Status: Active Protocol: Document 07/02/21 09:33 [facility] (Rec: 07/02/21 12:07 [facility] [id number]) Special Tests Foot/Ankle Special Tests Talor Tilt Test Results neg Anterior Draw Test Results neg Neural Special Tests- Lower Body SLR Test Results neg -good HS mobility slump Test Results positive R PT-OP-M Strength Start: 06/28/21 13:42 Freq: Status: Active Protocol: Document 07/02/21 09:33 [facility] (Rec: 07/02/21 12:07 [facility] [id number]) Hip Strength Hip Manual Muscle Testing Right Flexion (L2) 4 Good Extension (S1) 3+ Fair+ Abduction 3+ Fair+ External Rotation 4 Good Internal Rotation 4 Good Left Flexion (L2) 3+ Fair+ Extension (S1) 3 Fair Abduction 3+ Fair+ External Rotation 4- Good- Internal Rotation 4- Good- Knee Strength Knee Manual Muscle Testing Right Flexion (S2) 5 Normal Extension (L3) 5 Normal Left Flexion (S2) 4 Good Extension (L3) 5 Normal Ankle/Foot Strength Ankle and Foot Manual Muscle Testing Right Dorsiflexion (L4) 5 Normal Plantarflexion (S1) 4+ Good+ Inversion 5 Normal Eversion (S1) 5 Normal Comments 15 heel raises Left Dorsiflexion (L4) 4+ Good+ Plantarflexion (S1) 4- Good- Inversion 4 Good Eversion (S1) 5 Normal Comments 12 heel raises w/difficulty keeping knee straight PT-OP-Q Treatments Start: 06/28/21 13:42 Freq: Status: Active Protocol: Document 08/21/21 17:54 [facility] (Rec: 08/21/21 18:34 [facility] [id number]) Therapeutic Exercises Supine Exercises foam roll Supine Exercise Name // under back w/flex, Habd Side bilateral Reps/Minutes 15 ea Comments comfortable range w/post pelvic tilt and cues for no lumbar ext Prone Exercises Plank Prone Exercise Name 1.elevated on forearms x20 sec 2. forearm and knees 3x15 sec Standing Exercises Squats Reps/Minutes 2x10 Comments focus on knees not past toes Manual Therapy Treatment Joint Mobilizations Tspine Joint PA to T5-10 Comments w/LTR prone & deep breaths Neuro Re-Education Treatment Balance Activities SLS Comments 1. short bouts 2. SL holding on to avoid lat shear of hip and hip drop tandem stance Details b PT-OP-T Assessment and Plan Start: 06/28/21 13:42 Freq: Status: Active Protocol: Document 08/21/21 17:54 [facility] (Rec: 08/21/21 18:34 [facility] [id number]) Physical Therapy Assessment Goals SLS Coil Maker Goal (LTG) Pt will be able to do SLS 15 sec B w/o lat lean or UE use or pain to show iproved balance and stability. LTG Duration 09/01/21 ROM Short Term Goal (STG) Pt will have at least DF to neutral in knee ext positon. STG Duration 08/01/21 Shelter Goal (LTG) Pt will have AROM DF to at least 5 deg in knee ext position to improve gait mechanics. LTG Duration 09/01/21 strength Short Term Goal (STG) Pt will be indep w/ HEP STG Duration 08/01/21 Shelter Goal (LTG) pt will have at least 3/5 LPM in all planes and 5/5 MMT to LE in all planes to show improved stability to dec instances of LEs givign out. LTG Duration 09/01/21 walking Short Term Goal (STG) Pt will be able to get 6k steps daily without inc pain greater than 4/10 in back or ankle. STG Duration 08/01/21 Shelter Goal (LTG) pt will be able to go for walks for exercise with no more than 3/10 pain in ankle or back. LTG Duration 09/01/21 LEFS Impairment 53/80 Coil Maker Goal (LTG) Pt will improve LEFS score to at least 65/80 in order to show increase in functional ability. LTG Duration 09/01/21 Assessment Summary Assessment Pt did well with exercises but does require cues w/squat for kenes not past toes and plank to avoid lumbar ext but did progress to floor plank. She did have improved posture when standing after manual treatment Physical Therapy Plan Frequency and Duration Frequency of Treatment 1-2x/week Duration of Treatment 2 months Plan of Care Start Date 07/02/21 Plan of Care End Date 09/01/21 Next Visit Focus/Plan Next Note Type Progress Note Next Visit Plan short visits d/t insurance limits, cont to work on thoracic mobility to work on ability to improve posture and dec load on lumbar spine. Resume ankle manual. try hip hike on step w/focus on core not QL
--- NOTE | 2021-10-11 08:29 | PT.OPDS ---
Current Diagnoses Pain in unspecified ankle and joints of unspecified foot (08/21/21) Lumbago with sciatica, right side (08/21/21) Muscle weakness (generalized) (08/21/21) Difficulty in walking, not elsewhere classified (08/21/21) Unspecified abnormalities of gait and mobility (08/21/21) Abnormal posture (08/21/21) Visit Care Team Role Provider Type Edilia Galicia MD Attending Provider Physician Family Provider Primary Care Provider Referring Provider Specialty: [facility] Address: [address] [place] [address] Email: [email or web address] Visit Number Visit Number 8 Discharge Summary PT-OP-T Assessment and Plan Start: 06/28/21 13:42 Freq: Status: Active Protocol: Document 10/11/21 08:28 [facility] (Rec: 10/11/21 08:29 [facility] [id number]) Physical Therapy Assessment Assessment Summary Assessment pt cancelled last appt d/t sickness. Pt was called to schedule by schedulers per messages but did not schedule further visits at that time. DC d/t pt not seen for over 6 weeks without follow up. Physical Therapy Plan Discharge Physical Therapy Discharge Reasons No Longer Attending PT
== END 2021-10-25 10:57 ==
LOC: PHYS 16:45
PROVIDERS: Family Provider Family Medicine; PCP Family Medicine; Referring Provider Family Medicine; Visit Provider Family Medicine
DX: M25.579 Pain in unspecified ankle and joints of unspecified foot (principal); R26.9 Unspecified abnormalities of gait and mobility; M62.81 Muscle weakness (generalized); R26.2 Difficulty in walking, not elsewhere classified; R29.3 Abnormal posture; M54.41 Lumbago with sciatica, right side
CPT/HCPCS: 97110; 97116; 97140; 97162

== ENCOUNTER → 2021-09-13 16:09 | Outpatient (CLI) | payer OTHER, MEDICAID, SELFPAY ==
--- NOTE | 2021-09-13 16:11 | DI.RAD.S_ITS ---
PROCEDURE: XR SHOULDER LT MIN 2V INDICATIONS: L arm numbness/pain TECHNIQUE: 3 views of the shoulder were acquired. COMPARISON: None. FINDINGS: Bones: No fractures or dislocations. Mild arthrosis of the AC joint. No suspicious bony lesions. Visualized ribs appear intact. Soft tissues: No suspicious soft tissue calcifications. IMPRESSION: No acute osseous abnormality. Dictated by: Rocky Lara M.D. on 09/13/2021 at 16:38 Approved by: Rocky Lara M.D. on 09/13/2021 at 16:40
== END ==
PROVIDERS: Family Provider Family Medicine; PCP Family Medicine; Referring Provider Family Medicine; Visit Provider Family Medicine
DX: M19.012 Primary osteoarthritis, left shoulder (principal); M79.602 Pain in left arm; R20.0 Anesthesia of skin
CPT/HCPCS: 73030

== ENCOUNTER → 2021-09-20 08:50 | Outpatient (CLI) | payer OTHER, MEDICAID, SELFPAY | PROVIDERS: Family Provider Family Medicine; PCP Family Medicine; Referring Provider Family Medicine; Visit Provider Family Medicine | DX: M25.512 Pain in left shoulder (principal); R20.2 Paresthesia of skin | CPT/HCPCS: 72141 ==

== ENCOUNTER → 2021-09-21 15:40 | Outpatient (CLI) | payer OTHER, MEDICAID, SELFPAY ==
--- NOTE | 2021-09-20 08:53 | DI.MRI.S_ITS ---
PROCEDURE: MR CERVICAL SPINE WO CON INDICATIONS: Paresthesia of skin TECHNIQUE: Noncontrast sagittal T1 spin echo and T2 fast spin echo, sagittal STIR, foraminal oblique sagittal T2 fast spin echo, and axial gradient echo or T2 fast spin echo through the cervical spine. COMPARISON: None. FINDINGS: Image quality: Excellent. Alignment and Curvature: There is straightening of the normal cervical lordosis. No focal AP alignment abnormality is seen. Bone Marrow: Marrow demonstrates normal overall signal. Spinal Cord: Visualized spinal cord has normal size and signal. No cerebellar tonsillar herniation. Paraspinous Soft Tissues: No paravertebral masses. Prevertebral soft tissues are normal in thickness. C2-C3: No significant abnormality is seen. C3-C4: The disc height and disc signal are relatively well preserved. Mild to moderate disc osteophyte complex is seen. Moderate facet joint hypertrophy is seen. There is [id number] left-sided and mild right-sided neural foraminal narrowing seen. Mild central canal narrowing is seen. C4-C5: The disc height and disc signal are relatively well preserved. Moderate generalized disc osteophyte complex is seen. There is a central/left disc osteophyte protrusion, as on series 4, image 26. Mild to moderate facet hypertrophy is seen. There is moderate left-sided and no significant right-sided neural foraminal narrowing seen. At least moderate central canal narrowing is seen. There is associated mass effect upon the ventral spinal cord. C5-C6: Moderate loss of disc height is seen. Loss of disc signal is seen. Moderate disc osteophyte complex is seen, with a superimposed central/right disc osteophyte protrusion, as on series 4, image 31. Moderate facet joint hypertrophy is seen. There is moderate to severe bilateral neural foraminal narrowing seen at this level. Severe central canal narrowing is seen, with associated ventral cord flattening. C6-C7: The disc height and disc signal are relatively well preserved. A mild degree of generalized disc osteophyte complex is seen. Mild facet joint hypertrophy is seen. There is left-sided and no right-sided neural foraminal narrowing seen. Minimal central canal narrowing is seen. C7-T1: No significant abnormality is seen. IMPRESSION: Multiple levels of premature cervical spine degenerative change are seen, which are worst at the C5-C6 level, where there is severe central canal narrowing, with associated ventral cord flattening. Moderate to severe bilateral neural foraminal narrowing is also seen at this level. Dictated by: Darinel Mittal M.D. on 09/21/2021 at 15:37 Approved by: Darinel Mittal M.D. on 09/21/2021 at 15:42
== END ==
PROVIDERS: Family Provider Family Medicine; PCP Family Medicine; Referring Provider Family Medicine; Visit Provider Family Medicine
DX: M47.812 Spondylosis without myelopathy or radiculopathy, cervical region (principal); M48.02 Spinal stenosis, cervical region; R20.2 Paresthesia of skin; M25.512 Pain in left shoulder
CPT/HCPCS: 72141

== ENCOUNTER 2021-10-19 11:06 | Outpatient (CLI) | payer OTHER, MEDICAID, SELFPAY | END 2021-11-17 05:06 | disposition home or self-care (01) | LOC: PHYS 11:06 | PROVIDERS: Family Provider Family Medicine; PCP Family Medicine; Referring Provider Family Medicine; Visit Provider Family Medicine | DX: R20.2 Paresthesia of skin (principal); M25.512 Pain in left shoulder; M48.02 Spinal stenosis, cervical region | CPT/HCPCS: 95886; 95909 ==

== ENCOUNTER → 2022-01-21 09:13 | Outpatient (CLI) | payer OTHER, MEDICAID, SELFPAY ==
--- NOTE | 2022-01-21 | DI.CT.S_ITS ---
PROCEDURE: CT CERVICAL SPINE WO CON INDICATIONS: Radiculopathy, cervical region TECHNIQUE: Noncontrast 3 mm thick sections acquired from the skull base to the T4 level. Sagittal and coronal reformats were then constructed. For radiation dose reduction, the following was used: automated exposure control, adjustment of mA and/or kV according to patient size. COMPARISON: [facility], MR, MR CERVICAL SPINE WO CON, 09/21/2021, 15:48. [facility], CR, XR CERVICAL SPINE 2 OR 3 VIEWS, 11/06/2021, 15:17. FINDINGS: Image quality: This examination is somewhat limited by quantum mottle artifact. Bones: No fractures or dislocations. Visualized superior ribs are intact. There is overall straightening of the normal cervical lordosis. There is moderate disc space narrowing seen at C5-C6, with mild posteriorly directed endplate osteophytes. There is mild disc space narrowing seen at C4-C5. Soft tissues: Prevertebral soft tissues are normal in thickness. No paravertebral hematomas. No apical pneumothoraces. IMPRESSION: Cervical spine degenerative changes are seen, which are worst at C5-C6. Dictated by: Darinel Mittal M.D. on 01/21/2022 at 8:53 Approved by: Darinel Mittal M.D. on 01/21/2022 at 8:55
== END ==
PROVIDERS: Family Provider Family Medicine; PCP Family Medicine; Referring Provider Physician Assistant Medical; Visit Provider Physician Assistant Medical
DX: M47.22 Other spondylosis with radiculopathy, cervical region (principal)
CPT/HCPCS: 72125

== ENCOUNTER → 2022-02-27 13:56 | Outpatient (CLI) | payer OTHER, MEDICAID, SELFPAY | PROVIDERS: Family Provider Family Medicine; PCP Family Medicine; Visit Provider Physician Assistant | DX: Z01.818 Encounter for other preprocedural examination (principal) | CPT/HCPCS: 87797 ==

== ENCOUNTER → 2022-02-27 14:14 | Outpatient (CLI) | payer OTHER, MEDICAID, SELFPAY ==
[2022-02-27 16:37] LABS: Add Manual Diff / Slide Review NO; Basophils Absolute Auto 0 /uL (0-100); Basophils Percent Auto 0.4 % (0-2); Eosinophils Absolute Auto 200 /uL (0-450); Eosinophils Percent Auto 3.1 % (2-4); Hematocrit 38.8 % (36-46); Hemoglobin 13.4 g/dL (12.0-16.0); Lymphocytes Absolute Auto 1300 /uL (1100-4500); Lymphocytes Percent Auto 24.1 % (25-40); Mean Corpuscular HGB Conc 34.6 % (30-36); Mean Corpuscular Hemoglobin 29.9 PG (26-34); Mean Corpuscular Volume 86.3 fL (80-100); Monocytes Absolute Auto 300 /uL (0-900); Monocytes Percent Auto 5.9 % (3-14); Neutrophils Absolute Auto 3700 /uL (1500-7000); Neutrophils Percent Auto 66.5 % (50-75); Platelet Count 216 X10^3/uL (150-400); Red Blood Cell Count 4.49 X10^6/uL (4.0-5.2); Red Cell Distribution Width 13.3 % (11.6-14.8); White Blood Cell Count 5.6 X10^3/uL (4.5-11.0)
[2022-02-27 16:58] LABS: Alanine Aminotransferase 54 IU/L (<35); Albumin 4.2 g/dL (3.5-5.0); Albumin Globulin Ratio 1.2 (1.0-2.8); Alkaline Phosphatase 61 U/L (38-126); Aspartate Aminotransferase 54 IU/L (14-36); BUN Creatinine Ratio 17.3 (6-22); Bilirubin Total 0.5 mg/dL (0.2-1.3); Blood Urea Nitrogen 13 mg/dL (7-17); Calcium 9.1 mg/dL (8.4-10.2); Carbon Dioxide 23 mmol/L (22-32); Chloride 106 mmol/L (98-107); Estimated Glomerular Filt Rate > 60 mL/min (>60); Globulin 3.4 g/dL (1.7-4.1); Glucose 107 mg/dL (70-100); HEMOLYSIS < 15 (0-50); Hemoglobin A1C% w Est Avg Glu 5.1 % (4.0-6.0); Sodium 139 mmol/L (137-145); Total Protein 7.6 g/dL (6.3-8.2)
[2022-02-27 16:59] LABS: INR 1.1 (0.9-1.3); Prothrombin Time 12.6 SECONDS (10.1-12.7)
[2022-02-27 17:29] LABS: Appearance Urine UA CLEAR; Bilirubin Urine UA NEGATIVE (NEGATIVE); Color Urine UA YELLOW; Glucose Urine UA NEGATIVE (Negative); Ketones Urine UA NEGATIVE (NEGATIVE); Leukocyte Esterase Urine UA NEGATIVE (NEGATIVE); Nitrite Urine UA NEGATIVE (Negative); Occult Blood Urine UA 3+ (Negative); Protein Urine UA NEGATIVE (Negative); Urobilinogen Urine UA 0.2 E.U./dL (0.2)
[2022-02-27 17:50] LABS: RBC Urine 1-5/HPF (0-5/HPF); Squamous Epithelial Cell Urine 1-5 /HPF (0-5/HPF); WBC Urine 1-5/HPF (0-5/HPF)
[2022-02-27 17:51] LABS: Amorphous Sediment Urine 1+; Bacteria Urine None Seen; Culture Indicated Urine Cult Not Indicated; Mucus Urine 1+ (Negative)
== END ==
PROVIDERS: Family Provider Family Medicine; PCP Family Medicine; Referring Provider Physician Assistant; Visit Provider Physician Assistant
DX: Z01.818 Encounter for other preprocedural examination (principal); R73.09 Other abnormal glucose
CPT/HCPCS: 36415; 80053; 81001; 83036; 85025; 85610; 87797

== ENCOUNTER → 2022-03-01 13:42 | Outpatient (CLI) | payer OTHER, MEDICAID, SELFPAY ==
[2022-03-01 14:35] LABS: PTT Partial Thromboplastin Tim 33 SECONDS (26.4-36.2)
== END ==
PROVIDERS: Family Provider Family Medicine; PCP Family Medicine; Referring Provider Physician Assistant; Visit Provider Physician Assistant
DX: Z01.818 Encounter for other preprocedural examination (principal)
CPT/HCPCS: 36415; 85730

== ENCOUNTER → 2022-03-22 13:22 | Outpatient (CLI) | payer OTHER, MEDICAID, SELFPAY ==
--- NOTE | 2022-03-22 | DI.US.S_ITS ---
PROCEDURE: US PERIPH VENOUS LOW EXTREM BI INDICATIONS: POST OP/TACHYCARDIA TECHNIQUE: Real-time imaging, as well as color and pulse Doppler interrogation, were performed of the deep veins of both legs from the inguinal ligament to the popliteal fossa. COMPARISON: None. FINDINGS: Right: The common femoral, femoral and popliteal veins are normally compressible, and free of intraluminal thrombus. Color and pulse Doppler demonstrate normal phasic intravascular flow. There is normal augmentation response to distal compression maneuver. Left: The common femoral, femoral and popliteal veins are normally compressible, and free of intraluminal thrombus. Color and pulse Doppler demonstrate normal phasic intravascular flow. There is normal augmentation response to distal compression maneuver. IMPRESSION: No evidence of DVT in visualized bilateral lower extremity veins. Dictated by: Waqar Sanchez M.D. on 03/22/2022 at 14:24 Approved by: Waqar Sanchez M.D. on 03/22/2022 at 14:24
== END ==
PROVIDERS: Family Provider Family Medicine; PCP Family Medicine; Referring Provider Neurological Surgery; Visit Provider Neurological Surgery
DX: R00.0 Tachycardia, unspecified (principal); Z98.1 Arthrodesis status; Z79.3 Long term (current) use of hormonal contraceptives
CPT/HCPCS: 93970

== ENCOUNTER → 2022-04-12 18:26 | Outpatient (CLI) | payer OTHER, MEDICAID, SELFPAY ==
--- NOTE | 2022-04-12 | DI.RAD.S_ITS ---
PROCEDURE: XR CERVICAL SPINE 2V OR 3V INDICATIONS: Cervical Spinal Fusion TECHNIQUE: 3 view(s) of the cervical spine were acquired. COMPARISON: [facility], CT, CT CERVICAL SPINE WO CON, 01/21/2022, 9:21. FINDINGS: Bones: No fractures or dislocations to the T1 level. The lateral masses of C1 appear intact on the odontoid view. No suspicious bony lesions. There are post surgical changes from anterior cervical discectomy and fusion of C4 through C6 using anterior plate and screw fixation. Interbody disc spacers are noted at C4-5 and C5-6. No evidence for acute hardware complication. Alignment appears anatomic. Minimal straightening of cervical lordosis likely related to placement within a cervical collar. Soft tissues: No prevertebral soft tissue swelling. IMPRESSION: Postsurgical changes of anterior cervical discectomy and fusion of C4 through C6 in normal anatomic alignment. No evidence for acute hardware complication. Dictated by: Leonidas Daigle M.D. on 04/12/2022 at 21:14 Approved by: Leonidas Daigle M.D. on 04/12/2022 at 21:17
== END ==
PROVIDERS: Family Provider Family Medicine; PCP Family Medicine; Referring Provider Neurological Surgery; Visit Provider Neurological Surgery
DX: Z09 Encounter for follow-up examination after completed treatment for conditions other than malignant neoplasm (principal); Z98.1 Arthrodesis status
CPT/HCPCS: 72040

== ENCOUNTER → 2022-05-02 11:05 | Outpatient (CLI) | payer OTHER, MEDICAID, SELFPAY ==
[2022-05-02 12:53] LABS: Add Manual Diff / Slide Review NO; Basophils Absolute Auto 0 /uL (0-100); Basophils Percent Auto 0.4 % (0-2); Eosinophils Absolute Auto 200 /uL (0-450); Eosinophils Percent Auto 4.1 % (2-4); Hematocrit 39.3 % (36-46); Hemoglobin 13.2 g/dL (12.0-16.0); Lymphocytes Absolute Auto 1600 /uL (1100-4500); Lymphocytes Percent Auto 28.9 % (25-40); Mean Corpuscular HGB Conc 33.7 % (30-36); Mean Corpuscular Hemoglobin 29.3 PG (26-34); Mean Corpuscular Volume 86.9 fL (80-100); Monocytes Absolute Auto 400 /uL (0-900); Monocytes Percent Auto 6.5 % (3-14); Neutrophils Absolute Auto 3400 /uL (1500-7000); Neutrophils Percent Auto 60.1 % (50-75); Platelet Count 243 X10^3/uL (150-400); Red Blood Cell Count 4.52 X10^6/uL (4.0-5.2); Red Cell Distribution Width 13.1 % (11.6-14.8); White Blood Cell Count 5.7 X10^3/uL (4.5-11.0)
[2022-05-02 13:34] LABS: Alanine Aminotransferase 30 IU/L (<35); Albumin 4.2 g/dL (3.5-5.0); Albumin Globulin Ratio 1.4 (1.0-2.8); Alkaline Phosphatase 71 U/L (38-126); Aspartate Aminotransferase 29 IU/L (14-36); BUN Creatinine Ratio 18.2 (6-22); Bilirubin Total 0.6 mg/dL (0.2-1.3); Blood Urea Nitrogen 12 mg/dL (7-17); Calcium 9.3 mg/dL (8.4-10.2); Carbon Dioxide 25 mmol/L (22-32); Chloride 104 mmol/L (98-107); Cholesterol 222 mg/dL (140-199); Estimated Glomerular Filt Rate > 60 mL/min (>60); Globulin 2.9 g/dL (1.7-4.1); Glucose 86 mg/dL (70-100); HDL Cholesterol 48 mg/dL (40-60); HEMOLYSIS < 15 (0-50); LDL Cholesterol Calculated 139 mg/dL (<100); Potassium 4.3 mmol/L (3.4-5.1); Sodium 136 mmol/L (137-145); Total Protein 7.1 g/dL (6.3-8.2); Triglycerides 177 mg/dL (35-150)
== END ==
PROVIDERS: Family Provider Family Medicine; PCP Family Medicine; Referring Provider Physician Assistant; Visit Provider Physician Assistant
DX: R00.2 Palpitations (principal); R53.83 Other fatigue; Z13.220 Encounter for screening for lipoid disorders; Z13.6 Encounter for screening for cardiovascular disorders; Z83.42 Family history of familial hypercholesterolemia; E03.9 Hypothyroidism, unspecified
CPT/HCPCS: 36415; 80053; 80061; 84443; 85025

== ENCOUNTER → 2022-06-25 17:08 | Outpatient (CLI) | payer OTHER, MEDICAID, SELFPAY ==
--- NOTE | 2022-06-25 17:11 | DI.MRI.S_ITS ---
PROCEDURE: MR LUMBAR SPINE WO CON INDICATIONS: Radiculopathy, lumbar region TECHNIQUE: Noncontrast sagittal T1 spin echo and T2 fast echo, sagittal STIR, and T2 fast spin echo through the lumbar spine. In cases with scoliosis, additional coronal T2 fast spin echo may be performed. COMPARISON: [facility], , MR LUMBAR SPINE WO CON, 05/06/2020, 10:18. FINDINGS: Image quality: Excellent. Alignment and Curvature: There is normal bony alignment. Bone Marrow: Marrow is of normal overall signal. No acute vertebral body compression fractures. Spinal Cord: Conus medullaris terminates at the L1 level. Visualized cord demonstrates normal signal and size. Paraspinous Soft Tissues: No paravertebral masses. T12-L1: Normal appearance. L1-L2: Normal appearance. L2-L3: Normal appearance. L3-L4: Normal appearance. L4-L5: Disc height is preserved. There is a broad-based central disc protrusion resulting in moderate stenosis, slightly improved from the prior exam. No foraminal stenosis present. Hypertrophic facet joints noted. L5-S1: Normal appearance. IMPRESSION: Central disc protrusion at L4-5 results in moderate central stenosis, slightly improved from the prior exam Approved by: Jemal Tillman M.D. on 06/25/2022 at 17:23
== END ==
PROVIDERS: Family Provider Family Medicine; PCP Family Medicine; Referring Provider Neurological Surgery; Visit Provider Neurological Surgery
DX: M48.061 Spinal stenosis, lumbar region without neurogenic claudication (principal); M54.16 Radiculopathy, lumbar region; M21.371 Foot drop, right foot; M51.26 Other intervertebral disc displacement, lumbar region
CPT/HCPCS: 72148

== ENCOUNTER → 2022-07-08 08:19 | Outpatient (CLI) | payer OTHER, MEDICAID, SELFPAY ==
[2022-07-08 11:02] LABS: Cortisol Random 11.8 ug/dL
== END ==
PROVIDERS: Family Provider Family Medicine; PCP Family Medicine; Referring Provider Internal Medicine Cardiovascular Disease; Visit Provider Internal Medicine Cardiovascular Disease
DX: R00.0 Tachycardia, unspecified (principal)
CPT/HCPCS: 36415; 82533

== ENCOUNTER → 2022-07-25 13:24 | Outpatient (CLI) | payer OTHER, MEDICAID, SELFPAY ==
--- NOTE | 2022-07-25 13:29 | DI.RAD.S_ITS ---
PROCEDURE: XR CERVICAL SPINE 4V OR 5V INDICATIONS: CERVICAL SPINAL FUSION TECHNIQUE: 5 views of the cervical spine were acquired. COMPARISON: None. FINDINGS: Postsurgical changes of C4-C6 ACDF by means of anterior plate and screw hardware construct with interbody devices at C4-C5 and C5-C6. The hardware is all in expected normal position with normal position of the interbody devices also. No abnormal lucency surrounding the hardware. There is no dynamic instability demonstrated. IMPRESSION: Expected postoperative appearance status post C4-C6 ACDF. Dictated by: Jamaal Fonseca M.D. on 07/26/2022 at 14:35 Approved by: Jamaal Fonseca M.D. on 07/26/2022 at 14:40
== END ==
PROVIDERS: Family Provider Family Medicine; PCP Family Medicine; Referring Provider Neurological Surgery; Visit Provider Neurological Surgery
DX: Z09 Encounter for follow-up examination after completed treatment for conditions other than malignant neoplasm (principal); Z98.1 Arthrodesis status
CPT/HCPCS: 72050

== ENCOUNTER 2022-08-21 13:45 | Outpatient (RCR) | payer OTHER, MEDICAID, SELFPAY ==
--- NOTE | 2022-04-30 17:34 | PT.OIE ---
Current Diagnoses Abnormal posture (04/30/22) Arthrodesis status (04/30/22) Past Medical History (Last Reviewed 12/26/20 @ 17:41 by Carmen Beck MD) ADHD (attention deficit hyperactivity disorder) Ankle arthritis Ankle pain Anxiety Depression Endometriosis Fibrocystic breast disease History of TMJ disorder Hypothyroidism IBS (irritable bowel syndrome) Nodulocystic acne Thyroid nodule Tremor Past Surgical History (Last Reviewed 12/26/20 @ 17:41 by Carmen Beck MD) History of ankle surgery (2005) History of bilateral inguinal hernia repair (04/17/16) History of carpal tunnel release (2008) History of colonoscopy History of excision of lesion History of laparoscopy (2010) History of third molar tooth extraction Visit Care Team Role Provider Type Edilia Galicia MD Family Provider Physician Primary Care Provider Specialty: Family Practice Address: [address] [place] [address], [facility] Email: [email or web address] Wilian Busby MD Attending Provider Non-Staff Referring Provider Specialty: Neurology Address: [facility], [address] [place] [address], [facility] Email: Physical Therapy Initial Evaluation PT-OP-A Visit Information Start: 04/29/22 17:21 Freq: Status: Active Protocol: Document 04/30/22 12:00 AW (Rec: 04/29/22 17:27 AW [id number]) Out-Patient Physical Therapy Visit Information Visit Information Visit Type Initial Evaluation Visit Start Time 11:15 Visit Stop Time 12:00 Total Visit Minutes 45 Visit Number 10/24 Evaluation Information Evaluation Date 04/30/22 PT-OP-B Current Condition Start: 04/29/22 17:21 Freq: Status: Active Protocol: Document 04/30/22 12:00 AW (Rec: 04/29/22 17:27 AW [id number]) Current Condition History of Current Condition Onset Date 03/07/22 Current Complaints neck pain and stiffness after cervical fusion History of Current Condition Lis has a long-standing history of back and neck pain. Earlier this year, she was having radicular symtpoms down both arms and her legs were giving out, was walking with a cane. Had lost a lot of strength and sensation in both sides of arms and legs. No incontinence. She elected C4-5 C5-6 ACDF 03/07/22 at [facility]. Stayed in the hospital one night. Moved into parents' apartment (next door ) after surgery for assist. Wore [place] collar for 6 weeks. She is getting a lot of headaches - mostly occipital and then radiating forward. Still has some swallow difficulty occasionally. Has essential tremor most notable in hands. She had a bad experience with lumbar injection due to what pt calls congenital stenosis. 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 She is walking a lot for weight loss and enjoyment. She still has some weakness and numbness in her RLE but improved since surgery and pt is no longer using a cane. Prior Treatments and Tests ACDF as above. PT for lumbar radiculopathy. Treatment Goals Patient/Caregiver Goals Pt would like to learn how to move safely. She would like to relieve headaches and improve tolerance for reading or working in a bent forward position PT-OP-C Subjective Start: 04/29/22 17:21 Freq: Status: Active Protocol: Document 04/30/22 12:00 AW (Rec: 04/30/22 12:25 AW [id number]) OP-PT Subjective Patient Comments Patient Comments I've been feeling pretty hesitant to move my neck much. I want to learn how to move and to know what's safe. OP-PT Pain Assessment Pain Assessment Grid Paper Pain Assessment Grid Completed Yes: Scanned to EMR PT-OP-F Manual Assessment Start: 04/29/22 17:21 Freq: Status: Active Protocol: Document 04/30/22 12:00 AW (Rec: 04/30/22 17:52 AW [id number]) Manual Assessments Soft Tissue Assessment Soft Tissue Mobility Assessment Increased density in bilateral upper traps, suboccipitals, upper cervical paraspinals. PT-OP-H Neuro Start: 04/29/22 17:21 Freq: Status: Active Protocol: Document 04/30/22 12:00 AW (Rec: 04/30/22 12:25 AW [id number]) Sensation Evaluation Gross Sensation Gross Sensation Left UE Impaired Sensation Description Burning Dermatome Impairments C6,C7 Comments Summary Comments Burning sensation occurs less frequently since surgery. Deep Tendon Reflex & Clonus Assessment Deep Tendon Reflex Bilateral Tricep Deep Tendon Reflex 1+ Diminished Bilateral Bicep Deep Tendon Reflex 1+ Diminished PT-OP-J Posture/Palpation/Skin Start: 04/29/22 17:21 Freq: Status: Active Protocol: Document 04/30/22 12:00 AW (Rec: 04/30/22 17:52 AW [id number]) Posture Evaluation Comments Posture Comments Pt has reduced cervical lordosis, dowager's hump. Arms are held forward and rounded. Skin Assessment Incisional Assessment Incision Appearance/Comments Well-healed anterior neck scar . PT-OP-K Range of Motion Start: 04/29/22 17:21 Freq: Status: Active Protocol: Document 04/30/22 12:00 AW (Rec: 04/30/22 12:25 AW [id number]) Cervical Spine Range of Motion Cervical Spine Active Degrees Testing Position Sitting Flexion 31 Extension 30 Rotation Left 38 Rotation Right 35 Lateral Flexion Left 26 Lateral Flexion Right 25 ROM Limitations Soft Tissue Tightness,Bony Restriction,Pain Shoulder Goniometric Range of Motion Shoulder Bilat Shoulder ROM WFL Yes Comments No restrictions noted with AROM or with overpressure. All endfeels WNL. PT-OP-L Special Tests Start: 04/29/22 17:21 Freq: Status: Active Protocol: Document 04/30/22 12:00 AW (Rec: 04/30/22 17:54 AW [id number]) Special Tests Cervical Spine Special Tests Spurling's Test Test Results negative bilaterally PT-OP-M Strength Start: 04/29/22 17:21 Freq: Status: Active Protocol: Document 04/30/22 12:00 AW (Rec: 04/30/22 17:54 AW [id number]) Cervical Spine Strength Cervical Spine Manual Muscle Testing Testing Position Sitting Flexion (C1-2) 4+ Good+ Extension 4 Good Rotation Left 4+ Good+ Rotation Right 4+ Good+ Lateral Flexion Left (C3) 4+ Good+ Lateral Flexion Right (C3) 4+ Good+ Shoulder Strength Shoulder Manual Muscle Testing bilat Flexion 5 Normal Extension 5 Normal Abduction (C5) 5 Normal External Rotation 4+ Good+ Internal Rotation 5 Normal Elbow/Forearm Strength Elbow and Forearm Manual Muscle Testing bilat Flexion (C6) 5 Normal Extension (C7) 5 Normal PT-OP-Q Treatments Start: 04/29/22 17:21 Freq: Status: Active Protocol: Document 04/30/22 12:00 AW (Rec: 04/30/22 17:57 AW [id number]) Manual Therapy Treatment Soft Tissue Mobilization UT, SCM, subocc, cervical paraspinals Body Location UT, SCM, subocc, cervical paraspinals Mobilization Type Cross-Friction,Strumming Intensity/Depth Moderate Body Position Hooklying Self-Care/Home Management Treatment Education Patient Education Posture Other Education Reviewed evaluation findings and proposed plan of care based on improving cervical ROM, strength, and postural control. PT-OP-T Assessment and Plan Start: 04/29/22 17:21 Freq: Status: Active Protocol: Document 04/30/22 12:00 AW (Rec: 04/30/22 18:02 AW [id number]) Physical Therapy Assessment Rehab Potential Rehabilitation Potential Good Evaluation Complexity Number of Personal Factors/Comorbidities 1-2 Number of Body Systems Impaired 3 Clinical Presentation at Evaluation Stable Impairments Impairments Pain,Posture,ROM,Sensation, Strength Goals Three Impairment pain STG Duration 06/04/22 Penitentiary Goal (LTG) Pt will report average numeric pain rating 2/10 or less over the past two weeks LTG Duration 07/31/22 Two Impairment poor postural control Short Term Goal (STG) Pt will tolerate reading a book or tablet set up in front of her without increase in baseline pain STG Duration 06/04/22 Dental Hygiene Administrative Assistant Goal (LTG) Pt will tolerate work such as weeding or cleaning chicken coop in bent forward position without increase in baseline pain LTG Duration 07/31/22 One Impairment lacks HEP Short Term Goal (STG) Pt will be instructed in HEP to improve cervical/thoracic mobility and strength to support therapy services provided in clinic STG Duration 06/04/22 Dental Hygiene Administrative Assistant Goal (LTG) Pt will be indepedent with HEP to improve cervical/thoracic mobility and strength to promote return to regular activities LTG Duration 07/31/22 Assessment Summary Assessment Lis is a 36 yo woman who attend outpatient physical therapy with a long-standing history of low back and neck pain. She underwent C4-5, C5-6 ACDF on 03/07/22. She presents with expected ROM deficits post-fusion. She still has some burning sensation in her LUE. She is getting more frequent headaches and still has occasional difficulty swallowing. She is expected to benefit from skilled PT to improve her cervical and thoracic strength and postural control for return to regular activities on her family's property. Physical Therapy Plan Frequency and Duration Frequency of Treatment 1-2x/week Duration of Treatment 3 months Plan of Care Start Date 04/30/22 Plan of Care End Date 07/31/22 Therapeutic Interventions Therapeutic Interventions Home Exercise Program,Manual Therapy,Neuromuscular Re- education,Self-Care/Home Management,Soft Tissue Mobilization,Taping, Therapeutic Activities, Therapeutic Exercises Modalities Cold Pack/Ice Massage,Hot Packs Next Visit Focus/Plan Next Note Type Treatment Note Next Visit Plan STM cervical and thoracic mm. Consider scapulothoracic mobs and PNF for scapular control. Shoulder strengthening.
--- NOTE | 2022-04-30 17:34 | PT.OPPOC ---
Physical, Occupational & Speech Therapy At [facility] Current Diagnoses Abnormal posture (04/30/22) Arthrodesis status (04/30/22) Visit Care Team Role Provider Type Edilia Galicia MD Family Provider Physician Primary Care Provider Specialty: Family Practice Address: [address] [place] [address], [place], [address] Email: [email or web address] Wilian Busby MD Attending Provider Non-Staff Referring Provider Specialty: Neurology Address: [facility], [address] [place] [address], [id number] Email: Plan Of Care PT-OP-T Assessment and Plan Start: 04/29/22 17:21 Freq: Status: Active Protocol: Document 04/30/22 12:00 AW (Rec: 04/30/22 18:02 AW [id number]) Physical Therapy Assessment Rehab Potential Rehabilitation Potential Good Evaluation Complexity Number of Personal Factors/Comorbidities 1-2 Number of Body Systems Impaired 3 Clinical Presentation at Evaluation Stable Impairments Impairments Pain,Posture,ROM,Sensation, Strength Goals Three Impairment pain STG Duration 06/04/22 Broadcast Journalist Goal (LTG) Pt will report average numeric pain rating 2/10 or less over the past two weeks LTG Duration 07/31/22 Two Impairment poor postural control Short Term Goal (STG) Pt will tolerate reading a book or tablet set up in front of her without increase in baseline pain STG Duration 06/04/22 Care Home Goal (LTG) Pt will tolerate work such as weeding or cleaning chicken coop in bent forward position without increase in baseline pain LTG Duration 07/31/22 One Impairment lacks HEP Short Term Goal (STG) Pt will be instructed in HEP to improve cervical/thoracic mobility and strength to support therapy services provided in clinic STG Duration 06/04/22 Care Home Goal (LTG) Pt will be indepedent with HEP to improve cervical/thoracic mobility and strength to promote return to regular activities LTG Duration 07/31/22 Assessment Summary Assessment Lis is a 36 yo woman who attend outpatient physical therapy with a long-standing history of low back and neck pain. She underwent C4-5, C5-6 ACDF on 03/07/22. She presents with expected ROM deficits post-fusion. She still has some burning sensation in her LUE. She is getting more frequent headaches and still has occasional difficulty swallowing. She is expected to benefit from skilled PT to improve her cervical and thoracic strength and postural control for return to regular activities on her family's property. Physical Therapy Plan Frequency and Duration Frequency of Treatment 1-2x/week Duration of Treatment 3 months Plan of Care Start Date 04/30/22 Plan of Care End Date 07/31/22 Therapeutic Interventions Therapeutic Interventions Home Exercise Program,Manual Therapy,Neuromuscular Re- education,Self-Care/Home Management,Soft Tissue Mobilization,Taping, Therapeutic Activities, Therapeutic Exercises Modalities Cold Pack/Ice Massage,Hot Packs Next Visit Focus/Plan Next Note Type Treatment Note Next Visit Plan STM cervical and thoracic mm. Consider scapulothoracic mobs and PNF for scapular control. Shoulder strengthening. Plan of Care Dates Plan of Care Start Date 04/30/22 Plan of Care End Date 07/31/22 Electronically Signed by: Miriam Salgado, PT 05/01/22 8910 If you are in agreement with this Plan of Care, please return a signed and dated copy. I have reviewed this Plan of Care and certify that the skilled therapy services above are required to meet the patient?s needs. Physician Signature Date Printed Name and Credentials Clinical Instructor Signature Printed Name and Credentials
--- NOTE | 2022-05-02 16:24 | PT.OTN ---
Current Diagnoses Abnormal posture (05/02/22) Arthrodesis status (05/02/22) Physical Therapy Treatment Note PT-OP-A Visit Information Start: 04/29/22 17:21 Freq: Status: Active Protocol: Document 05/02/22 13:37 AW (Rec: 05/02/22 14:38 AW [id number]) Out-Patient Physical Therapy Visit Information Visit Information Visit Type Treatment Note Visit Start Time 13:45 Visit Stop Time 14:30 Total Visit Minutes 45 Visit Number 11/24 Number of QUILL CLEANER Visits 0 Evaluation Information Evaluation Date 04/30/22 PT-OP-B Current Condition Start: 04/29/22 17:21 Freq: Status: Active Protocol: Document 04/30/22 12:00 AW (Rec: 04/29/22 17:27 AW [id number]) Current Condition History of Current Condition Onset Date 03/07/22 Current Complaints neck pain and stiffness after cervical fusion History of Current Condition Lis has a long-standing history of back and neck pain. Earlier this year, she was having radicular symtpoms down both arms and her legs were giving out, was walking with a cane. Had lost a lot of strength and sensation in both sides of arms and legs. No incontinence. She elected C4-5 C5-6 ACDF 03/07/22 at [facility]. Stayed in the hospital one night. Moved into parents' apartment (next door ) after surgery for assist. Wore [place] collar for 6 weeks. She is getting a lot of headaches - mostly occipital and then radiating forward. Still has some swallow difficulty occasionally. Has essential tremor most notable in hands. She had a bad experience with lumbar injection due to what pt calls congenital stenosis. 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 She is walking a lot for weight loss and enjoyment. She still has some weakness and numbness in her RLE but improved since surgery and pt is no longer using a cane. Prior Treatments and Tests ACDF as above. PT for lumbar radiculopathy. Treatment Goals Patient/Caregiver Goals Pt would like to learn how to move safely. She would like to relieve headaches and improve tolerance for reading or working in a bent forward position PT-OP-C Subjective Start: 04/29/22 17:21 Freq: Status: Active Protocol: Document 05/02/22 13:37 AW (Rec: 05/02/22 14:38 AW [id number]) OP-PT Subjective Patient Comments Patient Comments I just started driving again last week and it feels so good . PT-OP-F Manual Assessment Start: 04/29/22 17:21 Freq: Status: Active Protocol: Document 04/30/22 12:00 AW (Rec: 04/30/22 17:52 AW [id number]) Manual Assessments Soft Tissue Assessment Soft Tissue Mobility Assessment Increased density in bilateral upper traps, suboccipitals, upper cervical paraspinals. PT-OP-H Neuro Start: 04/29/22 17:21 Freq: Status: Active Protocol: Document 04/30/22 12:00 AW (Rec: 04/30/22 12:25 AW [id number]) Sensation Evaluation Gross Sensation Gross Sensation Left UE Impaired Sensation Description Burning Dermatome Impairments C6,C7 Comments Summary Comments Burning sensation occurs less frequently since surgery. Deep Tendon Reflex & Clonus Assessment Deep Tendon Reflex Bilateral Tricep Deep Tendon Reflex 1+ Diminished Bilateral Bicep Deep Tendon Reflex 1+ Diminished PT-OP-J Posture/Palpation/Skin Start: 04/29/22 17:21 Freq: Status: Active Protocol: Document 04/30/22 12:00 AW (Rec: 04/30/22 17:52 AW [id number]) Posture Evaluation Comments Posture Comments Pt has reduced cervical lordosis, dowager's hump. Arms are held forward and rounded. Skin Assessment Incisional Assessment Incision Appearance/Comments Well-healed anterior neck scar . PT-OP-K Range of Motion Start: 04/29/22 17:21 Freq: Status: Active Protocol: Document 04/30/22 12:00 AW (Rec: 04/30/22 12:25 AW [id number]) Cervical Spine Range of Motion Cervical Spine Active Degrees Testing Position Sitting Flexion 31 Extension 30 Rotation Left 38 Rotation Right 35 Lateral Flexion Left 26 Lateral Flexion Right 25 ROM Limitations Soft Tissue Tightness,Bony Restriction,Pain Shoulder Goniometric Range of Motion Shoulder Bilat Shoulder ROM WFL Yes Comments No restrictions noted with AROM or with overpressure. All endfeels WNL. PT-OP-L Special Tests Start: 04/29/22 17:21 Freq: Status: Active Protocol: Document 04/30/22 12:00 AW (Rec: 04/30/22 17:54 AW [id number]) Special Tests Cervical Spine Special Tests Spurling's Test Test Results negative bilaterally PT-OP-M Strength Start: 04/29/22 17:21 Freq: Status: Active Protocol: Document 04/30/22 12:00 AW (Rec: 04/30/22 17:54 AW [id number]) Cervical Spine Strength Cervical Spine Manual Muscle Testing Testing Position Sitting Flexion (C1-2) 4+ Good+ Extension 4 Good Rotation Left 4+ Good+ Rotation Right 4+ Good+ Lateral Flexion Left (C3) 4+ Good+ Lateral Flexion Right (C3) 4+ Good+ Shoulder Strength Shoulder Manual Muscle Testing bilat Flexion 5 Normal Extension 5 Normal Abduction (C5) 5 Normal External Rotation 4+ Good+ Internal Rotation 5 Normal Elbow/Forearm Strength Elbow and Forearm Manual Muscle Testing bilat Flexion (C6) 5 Normal Extension (C7) 5 Normal PT-OP-Q Treatments Start: 04/29/22 17:21 Freq: Status: Active Protocol: Document 05/02/22 13:37 AW (Rec: 05/02/22 14:38 AW [id number]) Cardio Equipment Upper Body Ergometer (UBE) Duration (Minutes) 5 RPM 75 Seat Position 12 Height 2 Other f/b Therapeutic Exercises Supine Exercises chin tuck Supine Exercise Name chin tuck Comments HEP posture press/LT activation Supine Exercise Name posture press/LT activation Comments HEP foam roll - pec stretch, flexion, hAbd Supine Exercise Name foam roll - pec stretch, flexion, hAbd Comments focus on cervical neutral Sidelying Exercises open book Sidelying Exercise Name open book Comments HEP Sitting Exercises cervical AROM Sitting Exercise Name cervical AROM Reps/Minutes frequent postural cues Comments rotation, side bend, rotation with slight nod at end range pulleys Sitting Exercise Name pulleys - flexion, scaption Comments deep breath at end range Manual Therapy Treatment Soft Tissue Mobilization UT, SCM, subocc, cervical paraspinals Body Location UT, SCM, subocc, cervical paraspinals Mobilization Type Cross-Friction,Strumming Intensity/Depth Moderate Body Position Hooklying Self-Care/Home Management Treatment Education Patient Education Home Exercise Program Other Education Issued initial HEP with supine chin tuck, supine posture press, and open book. PT-OP-T Assessment and Plan Start: 04/29/22 17:21 Freq: Status: Active Protocol: Document 05/02/22 13:37 AW (Rec: 05/02/22 14:38 AW [id number]) Physical Therapy Assessment Goals Three Impairment pain STG Duration 06/04/22 Mailing Machine Operator Goal (LTG) Pt will report average numeric pain rating 2/10 or less over the past two weeks LTG Duration 07/31/22 Two Impairment poor postural control Short Term Goal (STG) Pt will tolerate reading a book or tablet set up in front of her without increase in baseline pain STG Duration 06/04/22 Mailing Machine Operator Goal (LTG) Pt will tolerate work such as weeding or cleaning chicken coop in bent forward position without increase in baseline pain LTG Duration 07/31/22 One Impairment lacks HEP Short Term Goal (STG) Pt will be instructed in HEP to improve cervical/thoracic mobility and strength to support therapy services provided in clinic STG Duration 06/04/22 [facility] Goal (LTG) Pt will be indepedent with HEP to improve cervical/thoracic mobility and strength to promote return to regular activities LTG Duration 07/31/22 Assessment Summary Assessment Lis is tolerating all ther ex well with only minor complaint of neck irritation when asked to engage deep neck flexors. Deficits in thoracic mobility are likely contributing significantly to cervical pain. Physical Therapy Plan Frequency and Duration Frequency of Treatment 1-2x/week Duration of Treatment 3 months Plan of Care Start Date 04/30/22 Plan of Care End Date 07/31/22 Therapeutic Interventions Therapeutic Interventions Home Exercise Program,Manual Therapy,Neuromuscular Re- education,Self-Care/Home Management,Soft Tissue Mobilization,Taping, Therapeutic Activities, Therapeutic Exercises Modalities Cold Pack/Ice Massage,Hot Packs Next Visit Focus/Plan Next Note Type Treatment Note Next Visit Plan STM cervical and thoracic mm. Consider scapulothoracic mobs and PNF for scapular control. Shoulder strengthening. Pt has foam roll, 1#, 3#, and 5# db at home to use for HEP as needed.
--- NOTE | 2022-06-04 17:03 | PT.OTN ---
Current Diagnoses Abnormal posture (06/04/22) Arthrodesis status (06/04/22) Physical Therapy Treatment Note PT-OP-A Visit Information Start: 04/29/22 17:21 Freq: Status: Active Protocol: Document 06/04/22 16:04 AW (Rec: 06/04/22 17:01 AW [id number]) Out-Patient Physical Therapy Visit Information Visit Information Visit Type Treatment Note Visit Start Time 16:00 Visit Stop Time 16:50 Total Visit Minutes 50 Visit Number 3/ Number of CLAIM ADJUSTER Visits 0 Evaluation Information Evaluation Date 04/30/22 PT-OP-B Current Condition Start: 04/29/22 17:21 Freq: Status: Active Protocol: Document 04/30/22 12:00 AW (Rec: 04/29/22 17:27 AW [id number]) Current Condition History of Current Condition Onset Date 03/07/22 Current Complaints neck pain and stiffness after cervical fusion History of Current Condition Lis has a long-standing history of back and neck pain. Earlier this year, she was having radicular symtpoms down both arms and her legs were giving out, was walking with a cane. Had lost a lot of strength and sensation in both sides of arms and legs. No incontinence. She elected C4-5 C5-6 ACDF 03/07/22 at [facility]. Stayed in the hospital one night. Moved into parents' apartment (next door ) after surgery for assist. Wore [place] collar for 6 weeks. She is getting a lot of headaches - mostly occipital and then radiating forward. Still has some swallow difficulty occasionally. Has essential tremor most notable in hands. She had a bad experience with lumbar injection due to what pt calls congenital stenosis. 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 She is walking a lot for weight loss and enjoyment. She still has some weakness and numbness in her RLE but improved since surgery and pt is no longer using a cane. Prior Treatments and Tests ACDF as above. PT for lumbar radiculopathy. Treatment Goals Patient/Caregiver Goals Pt would like to learn how to move safely. She would like to relieve headaches and improve tolerance for reading or working in a bent forward position PT-OP-C Subjective Start: 04/29/22 17:21 Freq: Status: Active Protocol: Document 06/04/22 16:04 AW (Rec: 06/04/22 17:01 AW [id number]) OP-PT Subjective Patient Comments Patient Comments Still having daily headaches which seem to be worse since surgery. Saw ortho who was satisfied with stability and healing. No restrictions at this time. Still having pain with leaning forward. PT-OP-F Manual Assessment Start: 04/29/22 17:21 Freq: Status: Active Protocol: Document 04/30/22 12:00 AW (Rec: 04/30/22 17:52 AW [id number]) Manual Assessments Soft Tissue Assessment Soft Tissue Mobility Assessment Increased density in bilateral upper traps, suboccipitals, upper cervical paraspinals. PT-OP-H Neuro Start: 04/29/22 17:21 Freq: Status: Active Protocol: Document 04/30/22 12:00 AW (Rec: 04/30/22 12:25 AW [id number]) Sensation Evaluation Gross Sensation Gross Sensation Left UE Impaired Sensation Description Burning Dermatome Impairments C6,C7 Comments Summary Comments Burning sensation occurs less frequently since surgery. Deep Tendon Reflex & Clonus Assessment Deep Tendon Reflex Bilateral Tricep Deep Tendon Reflex 1+ Diminished Bilateral Bicep Deep Tendon Reflex 1+ Diminished PT-OP-J Posture/Palpation/Skin Start: 04/29/22 17:21 Freq: Status: Active Protocol: Document 04/30/22 12:00 AW (Rec: 04/30/22 17:52 AW [id number]) Posture Evaluation Comments Posture Comments Pt has reduced cervical lordosis, dowager's hump. Arms are held forward and rounded. Skin Assessment Incisional Assessment Incision Appearance/Comments Well-healed anterior neck scar . PT-OP-K Range of Motion Start: 04/29/22 17:21 Freq: Status: Active Protocol: Document 04/30/22 12:00 AW (Rec: 04/30/22 12:25 AW [id number]) Cervical Spine Range of Motion Cervical Spine Active Degrees Testing Position Sitting Flexion 31 Extension 30 Rotation Left 38 Rotation Right 35 Lateral Flexion Left 26 Lateral Flexion Right 25 ROM Limitations Soft Tissue Tightness,Bony Restriction,Pain Shoulder Goniometric Range of Motion Shoulder Bilat Shoulder ROM WFL Yes Comments No restrictions noted with AROM or with overpressure. All endfeels WNL. PT-OP-L Special Tests Start: 04/29/22 17:21 Freq: Status: Active Protocol: Document 04/30/22 12:00 AW (Rec: 04/30/22 17:54 AW [id number]) Special Tests Cervical Spine Special Tests Spurling's Test Test Results negative bilaterally PT-OP-M Strength Start: 04/29/22 17:21 Freq: Status: Active Protocol: Document 04/30/22 12:00 AW (Rec: 04/30/22 17:54 AW [id number]) Cervical Spine Strength Cervical Spine Manual Muscle Testing Testing Position Sitting Flexion (C1-2) 4+ Good+ Extension 4 Good Rotation Left 4+ Good+ Rotation Right 4+ Good+ Lateral Flexion Left (C3) 4+ Good+ Lateral Flexion Right (C3) 4+ Good+ Shoulder Strength Shoulder Manual Muscle Testing bilat Flexion 5 Normal Extension 5 Normal Abduction (C5) 5 Normal External Rotation 4+ Good+ Internal Rotation 5 Normal Elbow/Forearm Strength Elbow and Forearm Manual Muscle Testing bilat Flexion (C6) 5 Normal Extension (C7) 5 Normal PT-OP-Q Treatments Start: 04/29/22 17:21 Freq: Status: Active Protocol: Document 06/04/22 16:04 AW (Rec: 06/04/22 17:01 AW [id number]) Cardio Equipment Upper Body Ergometer (UBE) Duration (Minutes) 5 RPM 75 Seat Position 12 Height 2 Other f/b Therapeutic Exercises Supine Exercises chin tuck Supine Exercise Name chin tuck Comments HEP review foam roll - pec stretch, flexion, hAbd Supine Exercise Name foam roll - pec stretch, flexion, hAbd Resistance 2# db Comments focus on cervical neutral Prone Exercises row Prone Exercise Name row Side bilateral Resistance 3# db Reps/Minutes x15 Comments progressed to standing Sidelying Exercises scapular retract/depress Sidelying Exercise Name scapular retract/depress Side bilateral Resistance vs PT manual resistance open book Sidelying Exercise Name open book Comments HEP Standing Exercises bent-over rows Standing Exercise Name bent-over row Side bilateral Resistance 3# db Comments modified with 45-deg trunk angle; focus on cervical neutral Manual Therapy Treatment Soft Tissue Mobilization UT, SCM, subocc, cervical paraspinals Body Location UT, LS, subocc, cervical paraspinals Mobilization Type Cross-Friction,Strumming Intensity/Depth Moderate Body Position Hooklying Self-Care/Home Management Treatment Education Patient Education Home Exercise Program Other Education Added modified bent-over row for HEP PT-OP-R Modalities Start: 04/29/22 17:21 Freq: Status: Active Protocol: Document 06/04/22 16:04 AW (Rec: 06/04/22 17:03 AW [id number]) Hot Pack/Cold Pack Treatment Cold Pack Location neck, shoulders Patient Position Hooklying Treatment Duration (minutes) 10 Patient Tolerance Good PT-OP-T Assessment and Plan Start: 04/29/22 17:21 Freq: Status: Active Protocol: Document 06/04/22 16:04 AW (Rec: 06/04/22 17:01 AW [id number]) Physical Therapy Assessment Goals Three Impairment pain STG Duration 06/04/22 [facility] Goal (LTG) Pt will report average numeric pain rating 2/10 or less over the past two weeks LTG Duration 07/31/22 Two Impairment poor postural control Short Term Goal (STG) Pt will tolerate reading a book or tablet set up in front of her without increase in baseline pain STG Duration 06/04/22 [facility] Goal (LTG) Pt will tolerate work such as weeding or cleaning chicken coop in bent forward position without increase in baseline pain LTG Duration 07/31/22 One Impairment lacks HEP Short Term Goal (STG) Pt will be instructed in HEP to improve cervical/thoracic mobility and strength to support therapy services provided in clinic STG Duration 06/04/22 [facility] Goal (LTG) Pt will be indepedent with HEP to improve cervical/thoracic mobility and strength to promote return to regular activities LTG Duration 07/31/22 Assessment Summary Assessment Lis has difficulty engaging deep neck flexors but is progressing with her ability to maintain cervical neutral in bent-forward positions. Physical Therapy Plan Frequency and Duration Frequency of Treatment 1-2x/week Duration of Treatment 3 months Plan of Care Start Date 04/30/22 Plan of Care End Date 07/31/22 Therapeutic Interventions Therapeutic Interventions Home Exercise Program,Manual Therapy,Neuromuscular Re- education,Self-Care/Home Management,Soft Tissue Mobilization,Taping, Therapeutic Activities, Therapeutic Exercises Modalities Cold Pack/Ice Massage,Hot Packs Next Visit Focus/Plan Next Note Type Treatment Note Next Visit Plan STM cervical and thoracic mm. Progress scapular control and shoulder strength as tolerated . Progress toward quadruped with emphasis on cervical neutral. Pt has foam roll, 1#, 3#, and 5# db at home to use for HEP as needed.
--- NOTE | 2022-06-12 13:45 | PT.OTN ---
Current Diagnoses Abnormal posture (06/12/22) Arthrodesis status (06/12/22) Physical Therapy Treatment Note PT-OP-A Visit Information Start: 04/29/22 17:21 Freq: Status: Active Protocol: Document 06/12/22 13:00 AW (Rec: 06/12/22 13:45 AW [id number]) Out-Patient Physical Therapy Visit Information Visit Information Visit Type Treatment Note Visit Start Time 13:01 Visit Stop Time 13:41 Total Visit Minutes 40 Visit Number 4/ Number of DIGITAL MARKETING STRATEGIST Visits 0 Evaluation Information Evaluation Date 04/30/22 PT-OP-B Current Condition Start: 04/29/22 17:21 Freq: Status: Active Protocol: Document 04/30/22 12:00 AW (Rec: 04/29/22 17:27 AW [id number]) Current Condition History of Current Condition Onset Date 03/07/22 Current Complaints neck pain and stiffness after cervical fusion History of Current Condition Lis has a long-standing history of back and neck pain. Earlier this year, she was having radicular symtpoms down both arms and her legs were giving out, was walking with a cane. Had lost a lot of strength and sensation in both sides of arms and legs. No incontinence. She elected C4-5 C5-6 ACDF 03/07/22 at [facility]. Stayed in the hospital one night. Moved into parents' apartment (next door ) after surgery for assist. Wore [place] collar for 6 weeks. She is getting a lot of headaches - mostly occipital and then radiating forward. Still has some swallow difficulty occasionally. Has essential tremor most notable in hands. She had a bad experience with lumbar injection due to what pt calls congenital stenosis. 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 She is walking a lot for weight loss and enjoyment. She still has some weakness and numbness in her RLE but improved since surgery and pt is no longer using a cane. Prior Treatments and Tests ACDF as above. PT for lumbar radiculopathy. Treatment Goals Patient/Caregiver Goals Pt would like to learn how to move safely. She would like to relieve headaches and improve tolerance for reading or working in a bent forward position PT-OP-C Subjective Start: 04/29/22 17:21 Freq: Status: Active Protocol: Document 06/12/22 13:00 AW (Rec: 06/12/22 13:45 AW [id number]) OP-PT Subjective Patient Comments Patient Comments Shoulders and neck have been very sore. Hands have been feeling weak. Has been lifting heavier things. Bent forward rows have been ok. PT-OP-F Manual Assessment Start: 04/29/22 17:21 Freq: Status: Active Protocol: Document 04/30/22 12:00 AW (Rec: 04/30/22 17:52 AW [id number]) Manual Assessments Soft Tissue Assessment Soft Tissue Mobility Assessment Increased density in bilateral upper traps, suboccipitals, upper cervical paraspinals. PT-OP-H Neuro Start: 04/29/22 17:21 Freq: Status: Active Protocol: Document 04/30/22 12:00 AW (Rec: 04/30/22 12:25 AW [id number]) Sensation Evaluation Gross Sensation Gross Sensation Left UE Impaired Sensation Description Burning Dermatome Impairments C6,C7 Comments Summary Comments Burning sensation occurs less frequently since surgery. Deep Tendon Reflex & Clonus Assessment Deep Tendon Reflex Bilateral Tricep Deep Tendon Reflex 1+ Diminished Bilateral Bicep Deep Tendon Reflex 1+ Diminished PT-OP-J Posture/Palpation/Skin Start: 04/29/22 17:21 Freq: Status: Active Protocol: Document 04/30/22 12:00 AW (Rec: 04/30/22 17:52 AW [id number]) Posture Evaluation Comments Posture Comments Pt has reduced cervical lordosis, dowager's hump. Arms are held forward and rounded. Skin Assessment Incisional Assessment Incision Appearance/Comments Well-healed anterior neck scar . PT-OP-K Range of Motion Start: 04/29/22 17:21 Freq: Status: Active Protocol: Document 04/30/22 12:00 AW (Rec: 04/30/22 12:25 AW [id number]) Cervical Spine Range of Motion Cervical Spine Active Degrees Testing Position Sitting Flexion 31 Extension 30 Rotation Left 38 Rotation Right 35 Lateral Flexion Left 26 Lateral Flexion Right 25 ROM Limitations Soft Tissue Tightness,Bony Restriction,Pain Shoulder Goniometric Range of Motion Shoulder Bilat Shoulder ROM WFL Yes Comments No restrictions noted with AROM or with overpressure. All endfeels WNL. PT-OP-L Special Tests Start: 04/29/22 17:21 Freq: Status: Active Protocol: Document 04/30/22 12:00 AW (Rec: 04/30/22 17:54 AW [id number]) Special Tests Cervical Spine Special Tests Spurling's Test Test Results negative bilaterally PT-OP-M Strength Start: 04/29/22 17:21 Freq: Status: Active Protocol: Document 04/30/22 12:00 AW (Rec: 04/30/22 17:54 AW [id number]) Cervical Spine Strength Cervical Spine Manual Muscle Testing Testing Position Sitting Flexion (C1-2) 4+ Good+ Extension 4 Good Rotation Left 4+ Good+ Rotation Right 4+ Good+ Lateral Flexion Left (C3) 4+ Good+ Lateral Flexion Right (C3) 4+ Good+ Shoulder Strength Shoulder Manual Muscle Testing bilat Flexion 5 Normal Extension 5 Normal Abduction (C5) 5 Normal External Rotation 4+ Good+ Internal Rotation 5 Normal Elbow/Forearm Strength Elbow and Forearm Manual Muscle Testing bilat Flexion (C6) 5 Normal Extension (C7) 5 Normal PT-OP-Q Treatments Start: 04/29/22 17:21 Freq: Status: Active Protocol: Document 06/12/22 13:00 AW (Rec: 06/12/22 13:45 AW [id number]) Cardio Equipment Upper Body Ergometer (UBE) Duration (Minutes) 5 RPM 75 Seat Position 12 Height 3 Other f/b Therapeutic Exercises Supine Exercises chin tuck Supine Exercise Name chin tuck Comments during all exercises Sitting Exercises cervical AROM Sitting Exercise Name cervical AROM - standing today Reps/Minutes frequent postural cues Comments rotation, side bend, rotation with slight nod at end range pulleys Sitting Exercise Name pulleys - flexion, scaption Comments deep breath at end range Standing Exercises OH press Standing Exercise Name OH press Side bilateral Resistance 3# db Equipment Used cues for neutral neck, PPT hAbd Standing Exercise Name hAbd Side bilateral Resistance TB2 Comments isometric hold while marching; cues for core stab bent-over rows Standing Exercise Name bent-over row Side bilateral Resistance 5# db Comments modified with 45-deg trunk angle; focus on cervical neutral Other Exercises bird dog Other Exercise Name bird dog - modified - UE only Comments focus on cervical neutral cat camel Other Exercise Name cat camel Manual Therapy Treatment Soft Tissue Mobilization UT, SCM, subocc, cervical paraspinals Body Location UT, LS, subocc, cervical paraspinals Mobilization Type Cross-Friction,Strumming Intensity/Depth Moderate Body Position Sitting Comments instruction in use of theracane for home. PT-OP-R Modalities Start: 04/29/22 17:21 Freq: Status: Active Protocol: Document 06/04/22 16:04 AW (Rec: 06/04/22 17:03 AW [id number]) Hot Pack/Cold Pack Treatment Cold Pack Location neck, shoulders Patient Position Hooklying Treatment Duration (minutes) 10 Patient Tolerance Good PT-OP-T Assessment and Plan Start: 04/29/22 17:21 Freq: Status: Active Protocol: Document 06/12/22 13:00 AW (Rec: 06/12/22 13:45 AW [id number]) Physical Therapy Assessment Goals Three Impairment pain STG Duration 06/04/22 Skilled Nursing Goal (LTG) Pt will report average numeric pain rating 2/10 or less over the past two weeks LTG Duration 07/31/22 Two Impairment poor postural control Short Term Goal (STG) Pt will tolerate reading a book or tablet set up in front of her without increase in baseline pain STG Duration 06/04/22 Skilled Nursing Goal (LTG) Pt will tolerate work such as weeding or cleaning chicken coop in bent forward position without increase in baseline pain LTG Duration 07/31/22 One Impairment lacks HEP Short Term Goal (STG) Pt will be instructed in HEP to improve cervical/thoracic mobility and strength to support therapy services provided in clinic STG Duration 06/04/22 [employer] Goal (LTG) Pt will be indepedent with HEP to improve cervical/thoracic mobility and strength to promote return to regular activities LTG Duration 07/31/22 Assessment Summary Assessment Improving ability to maintain cervical neutral with UE resisted exercise and in quadruped. Pt reports mild hand weakness and may benefit from exercise for wrist/hand in upcoming session. Physical Therapy Plan Frequency and Duration Frequency of Treatment 1-2x/week Duration of Treatment 3 months Plan of Care Start Date 04/30/22 Plan of Care End Date 07/31/22 Therapeutic Interventions Therapeutic Interventions Home Exercise Program,Manual Therapy,Neuromuscular Re- education,Self-Care/Home Management,Soft Tissue Mobilization,Taping, Therapeutic Activities, Therapeutic Exercises Modalities Cold Pack/Ice Massage,Hot Packs Next Visit Focus/Plan Next Note Type Treatment Note Next Visit Plan STM cervical and thoracic mm. Progress scapular control and shoulder strength as tolerated . Progress toward quadruped with emphasis on cervical neutral. Pt has foam roll, 1#, 3#, and 5# db at home to use for HEP as needed. Hand exercises?
--- NOTE | 2022-06-18 13:59 | PT.OTN ---
Current Diagnoses Abnormal posture (06/18/22) Arthrodesis status (06/18/22) Physical Therapy Treatment Note PT-OP-A Visit Information Start: 04/29/22 17:21 Freq: Status: Active Protocol: Document 06/18/22 13:03 AW (Rec: 06/18/22 13:59 AW [id number]) Out-Patient Physical Therapy Visit Information Visit Information Visit Type Treatment Note Visit Start Time 13:03 Visit Stop Time 13:45 Total Visit Minutes 42 Visit Number 02/21 Number of ASSISTANT QUALITY MANAGER Visits 0 Evaluation Information Evaluation Date 04/30/22 PT-OP-B Current Condition Start: 04/29/22 17:21 Freq: Status: Active Protocol: Document 04/30/22 12:00 AW (Rec: 04/29/22 17:27 AW [id number]) Current Condition History of Current Condition Onset Date 03/07/22 Current Complaints neck pain and stiffness after cervical fusion History of Current Condition Lis has a long-standing history of back and neck pain. Earlier this year, she was having radicular symtpoms down both arms and her legs were giving out, was walking with a cane. Had lost a lot of strength and sensation in both sides of arms and legs. No incontinence. She elected C4-5 C5-6 ACDF 03/07/22 at [facility]. Stayed in the hospital one night. Moved into parents' apartment (next door ) after surgery for assist. Wore Cheesh-[place] collar for 6 weeks. She is getting a lot of headaches - mostly occipital and then radiating forward. Still has some swallow difficulty occasionally. Has essential tremor most notable in hands. She had a bad experience with lumbar injection due to what pt calls congenital stenosis. 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 She is walking a lot for weight loss and enjoyment. She still has some weakness and numbness in her RLE but improved since surgery and pt is no longer using a cane. Prior Treatments and Tests ACDF as above. PT for lumbar radiculopathy. Treatment Goals Patient/Caregiver Goals Pt would like to learn how to move safely. She would like to relieve headaches and improve tolerance for reading or working in a bent forward position PT-OP-C Subjective Start: 04/29/22 17:21 Freq: Status: Active Protocol: Document 06/18/22 13:03 AW (Rec: 06/18/22 13:59 AW [id number]) OP-PT Subjective Patient Comments Patient Comments Restarted a muscle relaxer due to tension at base of skull. Wonders if her pillow is contributing. Constant pain 2- 3/10. PT-OP-F Manual Assessment Start: 04/29/22 17:21 Freq: Status: Active Protocol: Document 04/30/22 12:00 AW (Rec: 04/30/22 17:52 AW [id number]) Manual Assessments Soft Tissue Assessment Soft Tissue Mobility Assessment Increased density in bilateral upper traps, suboccipitals, upper cervical paraspinals. PT-OP-H Neuro Start: 04/29/22 17:21 Freq: Status: Active Protocol: Document 04/30/22 12:00 AW (Rec: 04/30/22 12:25 AW [id number]) Sensation Evaluation Gross Sensation Gross Sensation Left UE Impaired Sensation Description Burning Dermatome Impairments C6,C7 Comments Summary Comments Burning sensation occurs less frequently since surgery. Deep Tendon Reflex & Clonus Assessment Deep Tendon Reflex Bilateral Tricep Deep Tendon Reflex 1+ Diminished Bilateral Bicep Deep Tendon Reflex 1+ Diminished PT-OP-J Posture/Palpation/Skin Start: 04/29/22 17:21 Freq: Status: Active Protocol: Document 04/30/22 12:00 AW (Rec: 04/30/22 17:52 AW [id number]) Posture Evaluation Comments Posture Comments Pt has reduced cervical lordosis, dowager's hump. Arms are held forward and rounded. Skin Assessment Incisional Assessment Incision Appearance/Comments Well-healed anterior neck scar . PT-OP-K Range of Motion Start: 04/29/22 17:21 Freq: Status: Active Protocol: Document 04/30/22 12:00 AW (Rec: 04/30/22 12:25 AW [id number]) Cervical Spine Range of Motion Cervical Spine Active Degrees Testing Position Sitting Flexion 31 Extension 30 Rotation Left 38 Rotation Right 35 Lateral Flexion Left 26 Lateral Flexion Right 25 ROM Limitations Soft Tissue Tightness,Bony Restriction,Pain Shoulder Goniometric Range of Motion Shoulder Bilat Shoulder ROM WFL Yes Comments No restrictions noted with AROM or with overpressure. All endfeels WNL. PT-OP-L Special Tests Start: 04/29/22 17:21 Freq: Status: Active Protocol: Document 04/30/22 12:00 AW (Rec: 04/30/22 17:54 AW [id number]) Special Tests Cervical Spine Special Tests Spurling's Test Test Results negative bilaterally PT-OP-M Strength Start: 04/29/22 17:21 Freq: Status: Active Protocol: Document 04/30/22 12:00 AW (Rec: 04/30/22 17:54 AW [id number]) Cervical Spine Strength Cervical Spine Manual Muscle Testing Testing Position Sitting Flexion (C1-2) 4+ Good+ Extension 4 Good Rotation Left 4+ Good+ Rotation Right 4+ Good+ Lateral Flexion Left (C3) 4+ Good+ Lateral Flexion Right (C3) 4+ Good+ Shoulder Strength Shoulder Manual Muscle Testing bilat Flexion 5 Normal Extension 5 Normal Abduction (C5) 5 Normal External Rotation 4+ Good+ Internal Rotation 5 Normal Elbow/Forearm Strength Elbow and Forearm Manual Muscle Testing bilat Flexion (C6) 5 Normal Extension (C7) 5 Normal PT-OP-Q Treatments Start: 04/29/22 17:21 Freq: Status: Active Protocol: Document 06/18/22 13:03 AW (Rec: 06/18/22 13:59 AW [id number]) Therapeutic Exercises Supine Exercises foam roll - pec stretch, flexion, hAbd Supine Exercise Name foam roll - pec stretch, protraction, flexion, hAbd Resistance 3# db Comments added protraction Sitting Exercises cervical AROM Sitting Exercise Name cervical AROM - standing today Reps/Minutes frequent postural cues Comments rotation, side bend, rotation with slight nod at end range Standing Exercises squat tap Standing Exercise Name squat tap Equipment Used green chair Reps/Minutes 2x12 reps Comments good control; pt reports fatigue in neck. OH press Standing Exercise Name OH press Side bilateral Resistance 3# db Equipment Used cues for neutral neck, PPT bent-over rows Standing Exercise Name bent-over row Side bilateral Resistance 5# db Comments closer to horizontal trunk today; focus on cervical neutral Manual Therapy Treatment Soft Tissue Mobilization UT, SCM, subocc, cervical paraspinals Body Location UT, LS, subocc, cervical paraspinals Mobilization Type Cross-Friction,Strumming Intensity/Depth Moderate Body Position Sitting PT-OP-R Modalities Start: 04/29/22 17:21 Freq: Status: Active Protocol: Document 06/04/22 16:04 AW (Rec: 06/04/22 17:03 AW [id number]) Hot Pack/Cold Pack Treatment Cold Pack Location neck, shoulders Patient Position Hooklying Treatment Duration (minutes) 10 Patient Tolerance Good PT-OP-T Assessment and Plan Start: 04/29/22 17:21 Freq: Status: Active Protocol: Document 06/18/22 13:03 AW (Rec: 06/18/22 13:59 AW [id number]) Physical Therapy Assessment Goals Three Impairment pain STG Duration 06/04/22 Snf Goal (LTG) Pt will report average numeric pain rating 2/10 or less over the past two weeks LTG Duration 07/31/22 Two Impairment poor postural control Short Term Goal (STG) Pt will tolerate reading a book or tablet set up in front of her without increase in baseline pain 06/18/22 - Ok if at stable height that does not require flexion. STG Duration 06/04/22 Snf Goal (LTG) Pt will tolerate work such as weeding or cleaning chicken coop in bent forward position without increase in baseline pain LTG Duration 07/31/22 One Impairment lacks HEP Short Term Goal (STG) Pt will be instructed in HEP to improve cervical/thoracic mobility and strength to support therapy services provided in clinic 06/18/22 - PROGRESSING STG Duration 06/04/22 Visual Lead Goal (LTG) Pt will be indepedent with HEP to improve cervical/thoracic mobility and strength to promote return to regular activities LTG Duration 07/31/22 Progress Towards Goals Progress Towards Goals Progressing Toward Goals,Slow Progress due to Medical Issues Progress Comments Pt is able to read a book or tablet held steady at eye level but can not tolerate much if book is below eye level. Assessment Summary Assessment Continued to focus on cervical neutral in bent forward positions today. Lis tolerated nearly-horizontal bent over rows and squat taps but with quick approach to fatigue in cervical stabilizers. Will need to work toward lifting from waist height and from the ground. Physical Therapy Plan Frequency and Duration Frequency of Treatment 1-2x/week Duration of Treatment 3 months Plan of Care Start Date 04/30/22 Plan of Care End Date 07/31/22 Therapeutic Interventions Therapeutic Interventions Home Exercise Program,Manual Therapy,Neuromuscular Re- education,Self-Care/Home Management,Soft Tissue Mobilization,Taping, Therapeutic Activities, Therapeutic Exercises Modalities Cold Pack/Ice Massage,Hot Packs Next Visit Focus/Plan Next Note Type Treatment Note Next Visit Plan Progress scapular control and shoulder strength as tolerated . Progress toward quadruped with emphasis on cervical neutral. Pt has foam roll, 1#, 3#, and 5# db at home to use for HEP as needed. Hand exercises? Begin lifting from waist height.
--- NOTE | 2022-06-25 13:56 | PT.OTN ---
Current Diagnoses Abnormal posture (06/25/22) Arthrodesis status (06/25/22) Physical Therapy Treatment Note PT-OP-A Visit Information Start: 04/29/22 17:21 Freq: Status: Active Protocol: Document 06/25/22 12:09 AW (Rec: 06/25/22 13:55 AW [id number]) Out-Patient Physical Therapy Visit Information Visit Information Visit Type Treatment Note Visit Start Time 13:05 Visit Stop Time 13:45 Total Visit Minutes 40 Visit Number 03/24 Number of HEALTH AND FITNESS INSTRUCTOR Visits 0 Evaluation Information Evaluation Date 04/30/22 PT-OP-B Current Condition Start: 04/29/22 17:21 Freq: Status: Active Protocol: Document 04/30/22 12:00 AW (Rec: 04/29/22 17:27 AW [id number]) Current Condition History of Current Condition Onset Date 03/07/22 Current Complaints neck pain and stiffness after cervical fusion History of Current Condition Lis has a long-standing history of back and neck pain. Earlier this year, she was having radicular symtpoms down both arms and her legs were giving out, was walking with a cane. Had lost a lot of strength and sensation in both sides of arms and legs. No incontinence. She elected C4-5 C5-6 ACDF 03/07/22 at [facility]. Stayed in the hospital one night. Moved into parents' apartment (next door ) after surgery for assist. Wore [place] collar for 6 weeks. She is getting a lot of headaches - mostly occipital and then radiating forward. Still has some swallow difficulty occasionally. Has essential tremor most notable in hands. She had a bad experience with lumbar injection due to what pt calls congenital stenosis. 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 She is walking a lot for weight loss and enjoyment. She still has some weakness and numbness in her RLE but improved since surgery and pt is no longer using a cane. Prior Treatments and Tests ACDF as above. PT for lumbar radiculopathy. Treatment Goals Patient/Caregiver Goals Pt would like to learn how to move safely. She would like to relieve headaches and improve tolerance for reading or working in a bent forward position PT-OP-C Subjective Start: 04/29/22 17:21 Freq: Status: Active Protocol: Document 06/25/22 12:09 AW (Rec: 06/25/22 13:55 AW [id number]) OP-PT Subjective Patient Comments Patient Comments Pt arrives looking stiff and moving on block in upper quarter. Still taking mm relaxer but lower dose now. Feeling more flared up in low back which seems to be affecting right leg. PT-OP-F Manual Assessment Start: 04/29/22 17:21 Freq: Status: Active Protocol: Document 04/30/22 12:00 AW (Rec: 04/30/22 17:52 AW [id number]) Manual Assessments Soft Tissue Assessment Soft Tissue Mobility Assessment Increased density in bilateral upper traps, suboccipitals, upper cervical paraspinals. PT-OP-H Neuro Start: 04/29/22 17:21 Freq: Status: Active Protocol: Document 04/30/22 12:00 AW (Rec: 04/30/22 12:25 AW [id number]) Sensation Evaluation Gross Sensation Gross Sensation Left UE Impaired Sensation Description Burning Dermatome Impairments C6,C7 Comments Summary Comments Burning sensation occurs less frequently since surgery. Deep Tendon Reflex & Clonus Assessment Deep Tendon Reflex Bilateral Tricep Deep Tendon Reflex 1+ Diminished Bilateral Bicep Deep Tendon Reflex 1+ Diminished PT-OP-J Posture/Palpation/Skin Start: 04/29/22 17:21 Freq: Status: Active Protocol: Document 04/30/22 12:00 AW (Rec: 04/30/22 17:52 AW [id number]) Posture Evaluation Comments Posture Comments Pt has reduced cervical lordosis, dowager's hump. Arms are held forward and rounded. Skin Assessment Incisional Assessment Incision Appearance/Comments Well-healed anterior neck scar . PT-OP-K Range of Motion Start: 04/29/22 17:21 Freq: Status: Active Protocol: Document 04/30/22 12:00 AW (Rec: 04/30/22 12:25 AW [id number]) Cervical Spine Range of Motion Cervical Spine Active Degrees Testing Position Sitting Flexion 31 Extension 30 Rotation Left 38 Rotation Right 35 Lateral Flexion Left 26 Lateral Flexion Right 25 ROM Limitations Soft Tissue Tightness,Bony Restriction,Pain Shoulder Goniometric Range of Motion Shoulder Bilat Shoulder ROM WFL Yes Comments No restrictions noted with AROM or with overpressure. All endfeels WNL. PT-OP-L Special Tests Start: 04/29/22 17:21 Freq: Status: Active Protocol: Document 04/30/22 12:00 AW (Rec: 04/30/22 17:54 AW [id number]) Special Tests Cervical Spine Special Tests Spurling's Test Test Results negative bilaterally PT-OP-M Strength Start: 04/29/22 17:21 Freq: Status: Active Protocol: Document 04/30/22 12:00 AW (Rec: 04/30/22 17:54 AW [id number]) Cervical Spine Strength Cervical Spine Manual Muscle Testing Testing Position Sitting Flexion (C1-2) 4+ Good+ Extension 4 Good Rotation Left 4+ Good+ Rotation Right 4+ Good+ Lateral Flexion Left (C3) 4+ Good+ Lateral Flexion Right (C3) 4+ Good+ Shoulder Strength Shoulder Manual Muscle Testing bilat Flexion 5 Normal Extension 5 Normal Abduction (C5) 5 Normal External Rotation 4+ Good+ Internal Rotation 5 Normal Elbow/Forearm Strength Elbow and Forearm Manual Muscle Testing bilat Flexion (C6) 5 Normal Extension (C7) 5 Normal PT-OP-Q Treatments Start: 04/29/22 17:21 Freq: Status: Active Protocol: Document 06/25/22 12:09 AW (Rec: 06/25/22 13:55 AW [id number]) Cardio Equipment Upper Body Ergometer (UBE) Duration (Minutes) 5 RPM 75 Seat Position 12 Height 3 Other f/b Therapeutic Exercises Supine Exercises foam roll - pec stretch, flexion, hAbd Supine Exercise Name foam roll - pec stretch, protraction, flexion, hAbd Resistance 3# db Sitting Exercises cervical AROM Sitting Exercise Name cervical AROM - standing today Reps/Minutes frequent postural cues Comments rotation, side bend, rotation with slight nod at end range Standing Exercises wall slides - serratus Standing Exercise Name wall slides - serratus Side bilateral Comments clinic only GH extension Standing Exercise Name GH extension Resistance liftoff behind back with wand Reps/Minutes x20 wall pushup Standing Exercise Name wall pushup Reps/Minutes toes 28 from wall Comments pt will attempt for HEP hAbd Standing Exercise Name hAbd Side bilateral Resistance TB2 Comments isometric hold while marching; cues for core stab Manual Therapy Treatment Soft Tissue Mobilization UT, SCM, subocc, cervical paraspinals Body Location UT, LS, subocc, cervical paraspinals Mobilization Type Cross-Friction,Strumming Intensity/Depth Moderate Body Position Sitting Comments passive rotation and lateral flexion; MWM PT-OP-R Modalities Start: 04/29/22 17:21 Freq: Status: Active Protocol: Document 06/04/22 16:04 AW (Rec: 06/04/22 17:03 AW [id number]) Hot Pack/Cold Pack Treatment Cold Pack Location neck, shoulders Patient Position Hooklying Treatment Duration (minutes) 10 Patient Tolerance Good PT-OP-T Assessment and Plan Start: 04/29/22 17:21 Freq: Status: Active Protocol: Document 06/25/22 12:09 AW (Rec: 06/25/22 13:55 AW [id number]) Physical Therapy Assessment Goals Three Impairment pain STG Duration 06/04/22 Raisin Washer Goal (LTG) Pt will report average numeric pain rating 2/10 or less over the past two weeks LTG Duration 07/31/22 Two Impairment poor postural control Short Term Goal (STG) Pt will tolerate reading a book or tablet set up in front of her without increase in baseline pain 06/18/22 - Ok if at stable height that does not require flexion. STG Duration 06/04/22 Shelter Goal (LTG) Pt will tolerate work such as weeding or cleaning chicken coop in bent forward position without increase in baseline pain LTG Duration 07/31/22 One Impairment lacks HEP Short Term Goal (STG) Pt will be instructed in HEP to improve cervical/thoracic mobility and strength to support therapy services provided in clinic 06/18/22 - PROGRESSING STG Duration 06/04/22 Raisin Washer Goal (LTG) Pt will be indepedent with HEP to improve cervical/thoracic mobility and strength to promote return to regular activities LTG Duration 07/31/22 Assessment Summary Assessment Lis has right upper trap tremor with extended effort - most notable after serratus wall slides. She is tolerating most exercises well and able to make subtle postural corrections uncued ~50% of the time. Physical Therapy Plan Frequency and Duration Frequency of Treatment 1-2x/week Duration of Treatment 3 months Plan of Care Start Date 04/30/22 Plan of Care End Date 07/31/22 Therapeutic Interventions Therapeutic Interventions Home Exercise Program,Manual Therapy,Neuromuscular Re- education,Self-Care/Home Management,Soft Tissue Mobilization,Taping, Therapeutic Activities, Therapeutic Exercises Modalities Cold Pack/Ice Massage,Hot Packs Next Visit Focus/Plan Next Note Type Treatment Note Next Visit Plan Progress scapular control and shoulder strength as tolerated . Progress toward quadruped with emphasis on cervical neutral. Pt has foam roll, 1#, 3#, and 5# db at home to use for HEP as needed. Hand exercises? Begin lifting from waist height.
--- NOTE | 2022-07-10 15:15 | PT.OTN ---
Current Diagnoses Abnormal posture (07/10/22) Arthrodesis status (07/10/22) Physical Therapy Treatment Note PT-OP-A Visit Information Start: 04/29/22 17:21 Freq: Status: Active Protocol: Document 07/10/22 14:34 SP (Rec: 07/10/22 15:27 SP [id number]) Out-Patient Physical Therapy Visit Information Visit Information Visit Type Treatment Note Visit Start Time 14:34 Visit Stop Time 15:15 Total Visit Minutes 41 Visit Number 04/23 Number of DRILL SERGEANT Visits 1 Evaluation Information Evaluation Date 04/30/22 PT-OP-B Current Condition Start: 04/29/22 17:21 Freq: Status: Active Protocol: Document 04/30/22 12:00 AW (Rec: 04/29/22 17:27 AW [id number]) Current Condition History of Current Condition Onset Date 03/07/22 Current Complaints neck pain and stiffness after cervical fusion History of Current Condition Lis has a long-standing history of back and neck pain. Earlier this year, she was having radicular symtpoms down both arms and her legs were giving out, was walking with a cane. Had lost a lot of strength and sensation in both sides of arms and legs. No incontinence. She elected C4-5 C5-6 ACDF 03/07/22 at [facility]. Stayed in the hospital one night. Moved into parents' apartment (next door ) after surgery for assist. Wore [place] collar for 6 weeks. She is getting a lot of headaches - mostly occipital and then radiating forward. Still has some swallow difficulty occasionally. Has essential tremor most notable in hands. She had a bad experience with lumbar injection due to what pt calls congenital stenosis. 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 She is walking a lot for weight loss and enjoyment. She still has some weakness and numbness in her RLE but improved since surgery and pt is no longer using a cane. Prior Treatments and Tests ACDF as above. PT for lumbar radiculopathy. Treatment Goals Patient/Caregiver Goals Pt would like to learn how to move safely. She would like to relieve headaches and improve tolerance for reading or working in a bent forward position PT-OP-C Subjective Start: 04/29/22 17:21 Freq: Status: Active Protocol: Document 07/10/22 14:34 SP (Rec: 07/10/22 15:27 SP [id number]) OP-PT Subjective Patient Comments Patient Comments Pt reports doing puzzles more lately seated on floor table at chest height and getting tingling and numbness in L 1-2 MCP and posterior forearm and at times L deltoid. PT-OP-F Manual Assessment Start: 04/29/22 17:21 Freq: Status: Active Protocol: Document 04/30/22 12:00 AW (Rec: 04/30/22 17:52 AW [id number]) Manual Assessments Soft Tissue Assessment Soft Tissue Mobility Assessment Increased density in bilateral upper traps, suboccipitals, upper cervical paraspinals. PT-OP-H Neuro Start: 04/29/22 17:21 Freq: Status: Active Protocol: Document 04/30/22 12:00 AW (Rec: 04/30/22 12:25 AW [id number]) Sensation Evaluation Gross Sensation Gross Sensation Left UE Impaired Sensation Description Burning Dermatome Impairments C6,C7 Comments Summary Comments Burning sensation occurs less frequently since surgery. Deep Tendon Reflex & Clonus Assessment Deep Tendon Reflex Bilateral Tricep Deep Tendon Reflex 1+ Diminished Bilateral Bicep Deep Tendon Reflex 1+ Diminished PT-OP-J Posture/Palpation/Skin Start: 04/29/22 17:21 Freq: Status: Active Protocol: Document 04/30/22 12:00 AW (Rec: 04/30/22 17:52 AW [id number]) Posture Evaluation Comments Posture Comments Pt has reduced cervical lordosis, dowager's hump. Arms are held forward and rounded. Skin Assessment Incisional Assessment Incision Appearance/Comments Well-healed anterior neck scar . PT-OP-K Range of Motion Start: 04/29/22 17:21 Freq: Status: Active Protocol: Document 04/30/22 12:00 AW (Rec: 04/30/22 12:25 AW [id number]) Cervical Spine Range of Motion Cervical Spine Active Degrees Testing Position Sitting Flexion 31 Extension 30 Rotation Left 38 Rotation Right 35 Lateral Flexion Left 26 Lateral Flexion Right 25 ROM Limitations Soft Tissue Tightness,Bony Restriction,Pain Shoulder Goniometric Range of Motion Shoulder Bilat Shoulder ROM WFL Yes Comments No restrictions noted with AROM or with overpressure. All endfeels WNL. PT-OP-L Special Tests Start: 04/29/22 17:21 Freq: Status: Active Protocol: Document 04/30/22 12:00 AW (Rec: 04/30/22 17:54 AW [id number]) Special Tests Cervical Spine Special Tests Spurling's Test Test Results negative bilaterally PT-OP-M Strength Start: 04/29/22 17:21 Freq: Status: Active Protocol: Document 04/30/22 12:00 AW (Rec: 04/30/22 17:54 AW [id number]) Cervical Spine Strength Cervical Spine Manual Muscle Testing Testing Position Sitting Flexion (C1-2) 4+ Good+ Extension 4 Good Rotation Left 4+ Good+ Rotation Right 4+ Good+ Lateral Flexion Left (C3) 4+ Good+ Lateral Flexion Right (C3) 4+ Good+ Shoulder Strength Shoulder Manual Muscle Testing bilat Flexion 5 Normal Extension 5 Normal Abduction (C5) 5 Normal External Rotation 4+ Good+ Internal Rotation 5 Normal Elbow/Forearm Strength Elbow and Forearm Manual Muscle Testing bilat Flexion (C6) 5 Normal Extension (C7) 5 Normal PT-OP-Q Treatments Start: 04/29/22 17:21 Freq: Status: Active Protocol: Document 07/10/22 14:34 SP (Rec: 07/10/22 15:27 SP [id number]) Therapeutic Exercises Supine Exercises TS ext/ rolling Supine Exercise Name reviewed self performance, Equipment Used over foam roller and tennis ball Reps/Minutes Also ball in sock at wall upper back foam roll - pec stretch, flexion, hAbd Supine Exercise Name 1. pec st 2. FF 3. HABD 4. serratus press 5. 1/2 X alternate sides Resistance 3#> 4# Equipment Used length over foam roller Reps/Minutes x10 each wt, direction Comments cued no ROM passed trunk, GH jt protection comfort range Sidelying Exercises scapular retract/depress Sidelying Exercise Name scapular retract/depress Side bilateral open book Sidelying Exercise Name open book Side left Comments cued head turn with arm, fluid scap ROM and TS rotation Standing Exercises wall slides - serratus Standing Exercise Name wall slides - serratus Side bilateral Comments cued body closer to wall wall pushup Standing Exercise Name wall pushup fists for neutral wrist on wall Resistance AROM Equipment Used toes 28 from wall Reps/Minutes x12 Comments started little as HEP Manual Therapy Treatment Soft Tissue Mobilization UT, SCM, subocc, cervical paraspinals Body Location B UT, LS, subocc, cervical paraspinals Mobilization Type Cross-Friction,Strumming Intensity/Depth Moderate Body Position Hooklying Comments manual, sustained pressure with MWM CS nods/turns Joint Mobilizations scapulothoracic Joint L Direction retract depress Grade II Body Position Sidelying Comments manual retraction/depression PROM> AAROM> open book Self-Care/Home Management Treatment Education Patient Education Home Exercise Program Other Education Discussed is performing few if time bent over rows, [place] press and squats. Performing self STMs using ball wall, laying over and foam roller TS ext brooke/beneficial range to decrease LB pain mid thoracic. PT-OP-R Modalities Start: 04/29/22 17:21 Freq: Status: Active Protocol: Document 06/04/22 16:04 AW (Rec: 06/04/22 17:03 AW [id number]) Hot Pack/Cold Pack Treatment Cold Pack Location neck, shoulders Patient Position Hooklying Treatment Duration (minutes) 10 Patient Tolerance Good PT-OP-T Assessment and Plan Start: 04/29/22 17:21 Freq: Status: Active Protocol: Document 07/10/22 14:34 SP (Rec: 07/10/22 15:27 SP [id number]) Physical Therapy Assessment Goals Three Impairment pain STG Duration 06/04/22 Assisted Goal (LTG) Pt will report average numeric pain rating 2/10 or less over the past two weeks LTG Duration 07/31/22 Two Impairment poor postural control Short Term Goal (STG) Pt will tolerate reading a book or tablet set up in front of her without increase in baseline pain 06/18/22 - Ok if at stable height that does not require flexion. STG Duration 06/04/22 Assisted Goal (LTG) Pt will tolerate work such as weeding or cleaning chicken coop in bent forward position without increase in baseline pain LTG Duration 07/31/22 One Impairment lacks HEP Short Term Goal (STG) Pt will be instructed in HEP to improve cervical/thoracic mobility and strength to support therapy services provided in clinic 06/18/22 - PROGRESSING STG Duration 06/04/22 Naval Engineer Goal (LTG) Pt will be indepedent with HEP to improve cervical/thoracic mobility and strength to promote return to regular activities LTG Duration 07/31/22 Assessment Summary Assessment Pt responded well to manual, HEP review with TS rotation that decreased arm pain and mid back point specific pain. Physical Therapy Plan Frequency and Duration Frequency of Treatment 1-2x/week Duration of treatment (weeks) 12 Plan of Care Start Date 04/30/22 Plan of Care End Date 07/31/22 Therapeutic Interventions Therapeutic Interventions Home Exercise Program,Manual Therapy,Neuromuscular Re- education,Self-Care/Home Management,Soft Tissue Mobilization,Taping, Therapeutic Activities, Therapeutic Exercises Modalities Cold Pack/Ice Massage,Hot Packs Next Visit Focus/Plan Next Note Type Treatment Note Next Visit Plan Progress scapular control and shoulder strength as tolerated . Progress toward quadruped with emphasis on cervical neutral. Pt has foam roll, 1#, 3#, and 5# db at home to use for HEP as needed. Hand exercises? Begin lifting from waist height.
--- NOTE | 2022-07-24 14:07 | PT-OP ANOTE ---
Pt called to cancel same day due to illness
--- NOTE | 2022-07-30 11:17 | PT.OTN ---
Current Diagnoses Abnormal posture (07/30/22) Arthrodesis status (07/30/22) Physical Therapy Treatment Note PT-OP-A Visit Information Start: 04/29/22 17:21 Freq: Status: Active Protocol: Document 07/30/22 10:40 AW (Rec: 07/30/22 11:17 AW [id number]) Out-Patient Physical Therapy Visit Information Visit Information Visit Type Treatment Note Visit Start Time 10:40 Visit Stop Time 11:18 Total Visit Minutes 38 Visit Number 8/12 Number of NETWORKING SPECIALIST Visits 0 Evaluation Information Evaluation Date 04/30/22 PT-OP-B Current Condition Start: 04/29/22 17:21 Freq: Status: Active Protocol: Document 04/30/22 12:00 AW (Rec: 04/29/22 17:27 AW [id number]) Current Condition History of Current Condition Onset Date 03/07/22 Current Complaints neck pain and stiffness after cervical fusion History of Current Condition Lis has a long-standing history of back and neck pain. Earlier this year, she was having radicular symtpoms down both arms and her legs were giving out, was walking with a cane. Had lost a lot of strength and sensation in both sides of arms and legs. No incontinence. She elected C4-5 C5-6 ACDF 03/07/22 at [facility]. Stayed in the hospital one night. Moved into parents' apartment (next door ) after surgery for assist. Wore [place] collar for 6 weeks. She is getting a lot of headaches - mostly occipital and then radiating forward. Still has some swallow difficulty occasionally. Has essential tremor most notable in hands. She had a bad experience with lumbar injection due to what pt calls congenital stenosis. 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 She is walking a lot for weight loss and enjoyment. She still has some weakness and numbness in her RLE but improved since surgery and pt is no longer using a cane. Prior Treatments and Tests ACDF as above. PT for lumbar radiculopathy. Treatment Goals Patient/Caregiver Goals Pt would like to learn how to move safely. She would like to relieve headaches and improve tolerance for reading or working in a bent forward position PT-OP-C Subjective Start: 04/29/22 17:21 Freq: Status: Active Protocol: Document 07/30/22 10:40 AW (Rec: 07/30/22 11:17 AW [id number]) OP-PT Subjective Patient Comments Patient Comments Better able to tolerate leaned forward position. Left shoulder hurts more than anything right now. PT-OP-F Manual Assessment Start: 04/29/22 17:21 Freq: Status: Active Protocol: Document 04/30/22 12:00 AW (Rec: 04/30/22 17:52 AW [id number]) Manual Assessments Soft Tissue Assessment Soft Tissue Mobility Assessment Increased density in bilateral upper traps, suboccipitals, upper cervical paraspinals. PT-OP-H Neuro Start: 04/29/22 17:21 Freq: Status: Active Protocol: Document 04/30/22 12:00 AW (Rec: 04/30/22 12:25 AW [id number]) Sensation Evaluation Gross Sensation Gross Sensation Left UE Impaired Sensation Description Burning Dermatome Impairments C6,C7 Comments Summary Comments Burning sensation occurs less frequently since surgery. Deep Tendon Reflex & Clonus Assessment Deep Tendon Reflex Bilateral Tricep Deep Tendon Reflex 1+ Diminished Bilateral Bicep Deep Tendon Reflex 1+ Diminished PT-OP-J Posture/Palpation/Skin Start: 04/29/22 17:21 Freq: Status: Active Protocol: Document 04/30/22 12:00 AW (Rec: 04/30/22 17:52 AW [id number]) Posture Evaluation Comments Posture Comments Pt has reduced cervical lordosis, dowager's hump. Arms are held forward and rounded. Skin Assessment Incisional Assessment Incision Appearance/Comments Well-healed anterior neck scar . PT-OP-K Range of Motion Start: 04/29/22 17:21 Freq: Status: Active Protocol: Document 04/30/22 12:00 AW (Rec: 04/30/22 12:25 AW [id number]) Cervical Spine Range of Motion Cervical Spine Active Degrees Testing Position Sitting Flexion 31 Extension 30 Rotation Left 38 Rotation Right 35 Lateral Flexion Left 26 Lateral Flexion Right 25 ROM Limitations Soft Tissue Tightness,Bony Restriction,Pain Shoulder Goniometric Range of Motion Shoulder Bilat Shoulder ROM WFL Yes Comments No restrictions noted with AROM or with overpressure. All endfeels WNL. PT-OP-L Special Tests Start: 04/29/22 17:21 Freq: Status: Active Protocol: Document 04/30/22 12:00 AW (Rec: 04/30/22 17:54 AW [id number]) Special Tests Cervical Spine Special Tests Spurling's Test Test Results negative bilaterally PT-OP-M Strength Start: 04/29/22 17:21 Freq: Status: Active Protocol: Document 04/30/22 12:00 AW (Rec: 04/30/22 17:54 AW [id number]) Cervical Spine Strength Cervical Spine Manual Muscle Testing Testing Position Sitting Flexion (C1-2) 4+ Good+ Extension 4 Good Rotation Left 4+ Good+ Rotation Right 4+ Good+ Lateral Flexion Left (C3) 4+ Good+ Lateral Flexion Right (C3) 4+ Good+ Shoulder Strength Shoulder Manual Muscle Testing bilat Flexion 5 Normal Extension 5 Normal Abduction (C5) 5 Normal External Rotation 4+ Good+ Internal Rotation 5 Normal Elbow/Forearm Strength Elbow and Forearm Manual Muscle Testing bilat Flexion (C6) 5 Normal Extension (C7) 5 Normal PT-OP-Q Treatments Start: 04/29/22 17:21 Freq: Status: Active Protocol: Document 07/30/22 10:40 AW (Rec: 07/30/22 11:17 AW [id number]) Therapeutic Exercises Sidelying Exercises scapular retract/depress Sidelying Exercise Name scapular retract/depress Side bilateral open book Sidelying Exercise Name open book Side left Comments cued head turn with arm, fluid scap ROM and TS rotation Sitting Exercises cervical AROM Sitting Exercise Name cervical AROM - standing today Reps/Minutes frequent postural cues Comments rotation, side bend, rotation with slight nod at end range Standing Exercises squat tap Standing Exercise Name squat tap Equipment Used lat pull bench Reps/Minutes 2x12 reps Comments good cervical neutral without fatigue bent-over rows Standing Exercise Name bent-over row Side bilateral Resistance 5# db Comments closer to horizontal trunk today; focus on cervical neutral Manual Therapy Treatment Soft Tissue Mobilization UT, SCM, subocc, cervical paraspinals Body Location B UT, LS, subocc, cervical paraspinals Mobilization Type Cross-Friction,Strumming Intensity/Depth Moderate Body Position Hooklying Comments manual, sustained pressure with MWM CS nods/turns Joint Mobilizations scapulothoracic Joint L Direction retract depress Grade II Body Position Sidelying Comments manual retraction/depression PROM> AAROM> open book PT-OP-R Modalities Start: 04/29/22 17:21 Freq: Status: Active Protocol: Document 06/04/22 16:04 AW (Rec: 06/04/22 17:03 AW [id number]) Hot Pack/Cold Pack Treatment Cold Pack Location neck, shoulders Patient Position Hooklying Treatment Duration (minutes) 10 Patient Tolerance Good PT-OP-T Assessment and Plan Start: 04/29/22 17:21 Freq: Status: Active Protocol: Document 07/30/22 10:40 AW (Rec: 07/30/22 11:17 AW [id number]) Physical Therapy Assessment Goals Four Impairment neck ROM Candy Separator Hard Goal (LTG) Pt will have sufficient confidence in cervical rotation to be able to drive. LTG Duration 09/24/22 Three Impairment pain STG Duration 06/04/22 Alf Goal (LTG) Pt will report average numeric pain rating 2/10 or less over the past two weeks 07/30/22 - Not getting as many headaches or tension at occiput. Avg pain rating over two weeks 2-3/10. LTG Duration 09/24/22 Two Impairment poor postural control Short Term Goal (STG) Pt will tolerate reading a book or tablet set up in front of her without increase in baseline pain 06/18/22 - Ok if at stable height that does not require flexion. 07/30/22 - Still gets spasm if book not held at eye level. STG Duration 06/04/22 Candy Separator Hard Goal (LTG) Pt will tolerate work such as weeding or cleaning chicken coop in bent forward position without increase in baseline pain. 07/30/22 - Still gets increased spasm with longer than 15 minutes in neck flexed position. LTG Duration 09/24/22 One Impairment lacks HEP Short Term Goal (STG) Pt will be instructed in HEP to improve cervical/thoracic mobility and strength to support therapy services provided in clinic 06/18/22 - PROGRESSING STG Duration GOAL MET Alf Goal (LTG) Pt will be indepedent with HEP to improve cervical/thoracic mobility and strength to promote return to regular activities. 07/30/22 - Progressing but not as regular as anticipated. LTG Duration 09/24/22 Progress Towards Goals Progress Towards Goals Progressing Toward Goals Progress Comments Pt has progressed well with strength and mobility but still has limitations in tolerance for neck flexed position such as reading or household/agricultural tasks. She still lacks confidence in her neck rotation for driving. Pt should benefit from continued therapy to improve fluid ROM, strength, and to reduce tone in cervical musculature. Assessment Summary Assessment Pt tolerated STM and scapulothoracic mobilization well with improved thoracic rotation post-treatment Physical Therapy Plan Frequency and Duration Frequency of Treatment 1-2x/week Duration of treatment (weeks) 8 Plan of Care Start Date 07/30/22 Plan of Care End Date 09/24/22 Therapeutic Interventions Therapeutic Interventions Home Exercise Program,Manual Therapy,Neuromuscular Re- education,Self-Care/Home Management,Soft Tissue Mobilization,Taping, Therapeutic Activities, Therapeutic Exercises Modalities Cold Pack/Ice Massage,Hot Packs Next Visit Focus/Plan Next Note Type Treatment Note Next Visit Plan Consider more quadruped, thread the needle. Progress scapular control and shoulder strength as tolerated. Progress toward quadruped with emphasis on cervical neutral. Pt has foam roll, 1#, 3#, and 5# db at home to use for HEP as needed. Hand exercises? Begin lifting from waist height.
--- NOTE | 2022-07-30 11:18 | PT.OPPOC ---
Physical, Occupational & Speech Therapy At [facility] Current Diagnoses Abnormal posture (07/30/22) Arthrodesis status (07/30/22) Visit Care Team Role Provider Type Edilia Galicia MD Family Provider Physician Primary Care Provider Specialty: Family Practice Address: [address] [place] [address], [facility] [place], [address] Email: [email or web address] Wilian Busby MD Attending Provider Non-Staff Referring Provider Specialty: Neurology Address: [facility], [address] [place] [address], [id number] Email: Plan Of Care PT-OP-T Assessment and Plan Start: 04/29/22 17:21 Freq: Status: Active Protocol: Document 07/30/22 10:40 AW (Rec: 07/30/22 11:17 AW [id number]) Physical Therapy Assessment Goals Four Impairment neck ROM Custodial Goal (LTG) Pt will have sufficient confidence in cervical rotation to be able to drive. LTG Duration 09/24/22 Three Impairment pain STG Duration 06/04/22 Custodial Goal (LTG) Pt will report average numeric pain rating 2/10 or less over the past two weeks 07/30/22 - Not getting as many headaches or tension at occiput. Avg pain rating over two weeks 2-3/10. LTG Duration 09/24/22 Two Impairment poor postural control Short Term Goal (STG) Pt will tolerate reading a book or tablet set up in front of her without increase in baseline pain 06/18/22 - Ok if at stable height that does not require flexion. 07/30/22 - Still gets spasm if book not held at eye level. STG Duration 06/04/22 Custodial Goal (LTG) Pt will tolerate work such as weeding or cleaning chicken coop in bent forward position without increase in baseline pain. 07/30/22 - Still gets increased spasm with longer than 15 minutes in neck flexed position. LTG Duration 09/24/22 One Impairment lacks HEP Short Term Goal (STG) Pt will be instructed in HEP to improve cervical/thoracic mobility and strength to support therapy services provided in clinic 06/18/22 - PROGRESSING STG Duration GOAL MET Custodial Goal (LTG) Pt will be indepedent with HEP to improve cervical/thoracic mobility and strength to promote return to regular activities. 07/30/22 - Progressing but not as regular as anticipated. LTG Duration 09/24/22 Progress Towards Goals Progress Towards Goals Progressing Toward Goals Progress Comments Pt has progressed well with strength and mobility but still has limitations in tolerance for neck flexed position such as reading or household/agricultural tasks. She still lacks confidence in her neck rotation for driving. Pt should benefit from continued therapy to improve fluid ROM, strength, and to reduce tone in cervical musculature. Assessment Summary Assessment Pt tolerated STM and scapulothoracic mobilization well with improved thoracic rotation post-treatment Physical Therapy Plan Frequency and Duration Frequency of Treatment 1-2x/week Duration of treatment (weeks) 8 Plan of Care Start Date 07/30/22 Plan of Care End Date 09/24/22 Therapeutic Interventions Therapeutic Interventions Home Exercise Program,Manual Therapy,Neuromuscular Re- education,Self-Care/Home Management,Soft Tissue Mobilization,Taping, Therapeutic Activities, Therapeutic Exercises Modalities Cold Pack/Ice Massage,Hot Packs Next Visit Focus/Plan Next Note Type Treatment Note Next Visit Plan Consider more quadruped, thread the needle. Progress scapular control and shoulder strength as tolerated. Progress toward quadruped with emphasis on cervical neutral. Pt has foam roll, 1#, 3#, and 5# db at home to use for HEP as needed. Hand exercises? Begin lifting from waist height. Plan of Care Dates Plan of Care Start Date 07/30/22 Plan of Care End Date 09/24/22 Electronically Signed by: Miriam Salgado PT 07/30/22 0124 If you are in agreement with this Plan of Care, please return a signed and dated copy. I have reviewed this Plan of Care and certify that the skilled therapy services above are required to meet the patient?s needs. Physician Signature Date Printed Name and Credentials Clinical Instructor Signature Printed Name and Credentials
--- NOTE | 2022-08-07 14:31 | PT.OTN ---
Current Diagnoses Abnormal posture (08/07/22) Arthrodesis status (08/07/22) Physical Therapy Treatment Note PT-OP-A Visit Information Start: 04/29/22 17:21 Freq: Status: Active Protocol: Document 08/07/22 12:58 AW (Rec: 08/07/22 14:31 AW [id number]) Out-Patient Physical Therapy Visit Information Visit Information Visit Type Treatment Note Visit Start Time 13:45 Visit Stop Time 14:30 Total Visit Minutes 45 Visit Number 06/24 Number of ANIMAL CARE ASSISTANT Visits 0 Evaluation Information Evaluation Date 04/30/22 PT-OP-B Current Condition Start: 04/29/22 17:21 Freq: Status: Active Protocol: Document 04/30/22 12:00 AW (Rec: 04/29/22 17:27 AW [id number]) Current Condition History of Current Condition Onset Date 03/07/22 Current Complaints neck pain and stiffness after cervical fusion History of Current Condition Lis has a long-standing history of back and neck pain. Earlier this year, she was having radicular symtpoms down both arms and her legs were giving out, was walking with a cane. Had lost a lot of strength and sensation in both sides of arms and legs. No incontinence. She elected C4-5 C5-6 ACDF 03/07/22 at [facility]. Stayed in the hospital one night. Moved into parents' apartment (next door ) after surgery for assist. Wore [place] collar for 6 weeks. She is getting a lot of headaches - mostly occipital and then radiating forward. Still has some swallow difficulty occasionally. Has essential tremor most notable in hands. She had a bad experience with lumbar injection due to what pt calls congenital stenosis. 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 She is walking a lot for weight loss and enjoyment. She still has some weakness and numbness in her RLE but improved since surgery and pt is no longer using a cane. Prior Treatments and Tests ACDF as above. PT for lumbar radiculopathy. Treatment Goals Patient/Caregiver Goals Pt would like to learn how to move safely. She would like to relieve headaches and improve tolerance for reading or working in a bent forward position PT-OP-C Subjective Start: 04/29/22 17:21 Freq: Status: Active Protocol: Document 08/07/22 12:58 AW (Rec: 08/07/22 14:31 AW [id number]) OP-PT Subjective Patient Comments Patient Comments Feeling a little better today but still achy with occasional sharp pain in left shoulder. PT-OP-F Manual Assessment Start: 04/29/22 17:21 Freq: Status: Active Protocol: Document 04/30/22 12:00 AW (Rec: 04/30/22 17:52 AW [id number]) Manual Assessments Soft Tissue Assessment Soft Tissue Mobility Assessment Increased density in bilateral upper traps, suboccipitals, upper cervical paraspinals. PT-OP-H Neuro Start: 04/29/22 17:21 Freq: Status: Active Protocol: Document 04/30/22 12:00 AW (Rec: 04/30/22 12:25 AW [id number]) Sensation Evaluation Gross Sensation Gross Sensation Left UE Impaired Sensation Description Burning Dermatome Impairments C6,C7 Comments Summary Comments Burning sensation occurs less frequently since surgery. Deep Tendon Reflex & Clonus Assessment Deep Tendon Reflex Bilateral Tricep Deep Tendon Reflex 1+ Diminished Bilateral Bicep Deep Tendon Reflex 1+ Diminished PT-OP-J Posture/Palpation/Skin Start: 04/29/22 17:21 Freq: Status: Active Protocol: Document 04/30/22 12:00 AW (Rec: 04/30/22 17:52 AW [id number]) Posture Evaluation Comments Posture Comments Pt has reduced cervical lordosis, dowager's hump. Arms are held forward and rounded. Skin Assessment Incisional Assessment Incision Appearance/Comments Well-healed anterior neck scar . PT-OP-K Range of Motion Start: 04/29/22 17:21 Freq: Status: Active Protocol: Document 04/30/22 12:00 AW (Rec: 04/30/22 12:25 AW [id number]) Cervical Spine Range of Motion Cervical Spine Active Degrees Testing Position Sitting Flexion 31 Extension 30 Rotation Left 38 Rotation Right 35 Lateral Flexion Left 26 Lateral Flexion Right 25 ROM Limitations Soft Tissue Tightness,Bony Restriction,Pain Shoulder Goniometric Range of Motion Shoulder Bilat Shoulder ROM WFL Yes Comments No restrictions noted with AROM or with overpressure. All endfeels WNL. PT-OP-L Special Tests Start: 04/29/22 17:21 Freq: Status: Active Protocol: Document 04/30/22 12:00 AW (Rec: 04/30/22 17:54 AW [id number]) Special Tests Cervical Spine Special Tests Spurling's Test Test Results negative bilaterally PT-OP-M Strength Start: 04/29/22 17:21 Freq: Status: Active Protocol: Document 04/30/22 12:00 AW (Rec: 04/30/22 17:54 AW [id number]) Cervical Spine Strength Cervical Spine Manual Muscle Testing Testing Position Sitting Flexion (C1-2) 4+ Good+ Extension 4 Good Rotation Left 4+ Good+ Rotation Right 4+ Good+ Lateral Flexion Left (C3) 4+ Good+ Lateral Flexion Right (C3) 4+ Good+ Shoulder Strength Shoulder Manual Muscle Testing bilat Flexion 5 Normal Extension 5 Normal Abduction (C5) 5 Normal External Rotation 4+ Good+ Internal Rotation 5 Normal Elbow/Forearm Strength Elbow and Forearm Manual Muscle Testing bilat Flexion (C6) 5 Normal Extension (C7) 5 Normal PT-OP-Q Treatments Start: 04/29/22 17:21 Freq: Status: Active Protocol: Document 08/07/22 12:58 AW (Rec: 08/07/22 14:31 AW [id number]) Gym Equipment Cable Column (Body Solid) scap depression Details scap depression Resistance 3 -> 4 Reps/Time x15 lat pulldown Details lat pulldown Resistance 3 Reps/Time x15 Therapeutic Exercises Supine Exercises foam roll - pec stretch, flexion, hAbd Supine Exercise Name 1. pec st 2. FF 3. HABD 4. serratus press 5. 1/2 X alternate sides Resistance 4# Equipment Used length over foam roller Reps/Minutes x10 each wt, direction Comments cued no ROM past trunk, GH jt protection comfort range Standing Exercises deadlift Standing Exercise Name deadlift/hip hinge Resistance 7# db Reps/Minutes clinic only Comments cues to not overextend L/S in stance wall pushup Standing Exercise Name wall pushup fists for neutral wrist on wall Resistance AROM Equipment Used toes 33 from wall Reps/Minutes x12 Comments good progression from 28 last time checked squat tap Standing Exercise Name squat tap Equipment Used 16 block Reps/Minutes 2x12 reps Comments good cervical neutral without fatigue OH press Standing Exercise Name OH press Side bilateral Resistance 4# db Equipment Used cues for neutral neck, PPT Other Exercises thread the needle Other Exercise Name thread the needle Side bilateral Therapeutic Activity Therapeutic Activity lifting and carrying Name lifting and carrying Comments 20# in crate - lift from chair height, lift from 8 block and carry. good form without breakdown PT-OP-R Modalities Start: 04/29/22 17:21 Freq: Status: Active Protocol: Document 06/04/22 16:04 AW (Rec: 06/04/22 17:03 AW [id number]) Hot Pack/Cold Pack Treatment Cold Pack Location neck, shoulders Patient Position Hooklying Treatment Duration (minutes) 10 Patient Tolerance Good PT-OP-T Assessment and Plan Start: 04/29/22 17:21 Freq: Status: Active Protocol: Document 08/07/22 12:58 AW (Rec: 08/07/22 14:31 AW [id number]) Physical Therapy Assessment Goals Four Impairment neck ROM Grocery Bagger Goal (LTG) Pt will have sufficient confidence in cervical rotation to be able to drive. LTG Duration 09/24/22 Three Impairment pain STG Duration 06/04/22 Grocery Bagger Goal (LTG) Pt will report average numeric pain rating 2/10 or less over the past two weeks 07/30/22 - Not getting as many headaches or tension at occiput. Avg pain rating over two weeks 2-3/10. LTG Duration 09/24/22 Two Impairment poor postural control Short Term Goal (STG) Pt will tolerate reading a book or tablet set up in front of her without increase in baseline pain 06/18/22 - Ok if at stable height that does not require flexion. 07/30/22 - Still gets spasm if book not held at eye level. STG Duration 06/04/22 Fpc Goal (LTG) Pt will tolerate work such as weeding or cleaning chicken coop in bent forward position without increase in baseline pain. 07/30/22 - Still gets increased spasm with longer than 15 minutes in neck flexed position. LTG Duration 09/24/22 One Impairment lacks HEP Short Term Goal (STG) Pt will be instructed in HEP to improve cervical/thoracic mobility and strength to support therapy services provided in clinic 06/18/22 - PROGRESSING STG Duration GOAL MET Grocery Bagger Goal (LTG) Pt will be indepedent with HEP to improve cervical/thoracic mobility and strength to promote return to regular activities. 07/30/22 - Progressing but not as regular as anticipated. LTG Duration 09/24/22 Assessment Summary Assessment Lis is improving in exercise tolerance. Thoracic ROM improved post-thread the needle. Cervical posture is better with all activities but pt does still benefit from cues to let her eyes follow along with movement instead of fixing her gaze which puts her into too much extension. Physical Therapy Plan Frequency and Duration Frequency of Treatment 1-2x/week Duration of treatment (weeks) 8 Plan of Care Start Date 07/30/22 Plan of Care End Date 09/24/22 Therapeutic Interventions Therapeutic Interventions Home Exercise Program,Manual Therapy,Neuromuscular Re- education,Self-Care/Home Management,Soft Tissue Mobilization,Taping, Therapeutic Activities, Therapeutic Exercises Modalities Cold Pack/Ice Massage,Hot Packs
--- NOTE | 2022-08-14 14:29 | PT.OTN ---
Current Diagnoses Abnormal posture (08/14/22) Arthrodesis status (08/14/22) Physical Therapy Treatment Note PT-OP-A Visit Information Start: 04/29/22 17:21 Freq: Status: Active Protocol: Document 08/14/22 12:58 AW (Rec: 08/14/22 14:29 AW [id number]) Out-Patient Physical Therapy Visit Information Visit Information Visit Type Treatment Note Visit Start Time 13:45 Visit Stop Time 14:25 Total Visit Minutes 40 Visit Number 07/24 Evaluation Information Evaluation Date 04/30/22 PT-OP-B Current Condition Start: 04/29/22 17:21 Freq: Status: Active Protocol: Document 04/30/22 12:00 AW (Rec: 04/29/22 17:27 AW [id number]) Current Condition History of Current Condition Onset Date 03/07/22 Current Complaints neck pain and stiffness after cervical fusion History of Current Condition Lis has a long-standing history of back and neck pain. Earlier this year, she was having radicular symtpoms down both arms and her legs were giving out, was walking with a cane. Had lost a lot of strength and sensation in both sides of arms and legs. No incontinence. She elected C4-5 C5-6 ACDF 03/07/22 at [facility]. Stayed in the hospital one night. Moved into parents' apartment (next door ) after surgery for assist. Wore [place] collar for 6 weeks. She is getting a lot of headaches - mostly occipital and then radiating forward. Still has some swallow difficulty occasionally. Has essential tremor most notable in hands. She had a bad experience with lumbar injection due to what pt calls congenital stenosis. 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 She is walking a lot for weight loss and enjoyment. She still has some weakness and numbness in her RLE but improved since surgery and pt is no longer using a cane. Prior Treatments and Tests ACDF as above. PT for lumbar radiculopathy. Treatment Goals Patient/Caregiver Goals Pt would like to learn how to move safely. She would like to relieve headaches and improve tolerance for reading or working in a bent forward position PT-OP-C Subjective Start: 04/29/22 17:21 Freq: Status: Active Protocol: Document 08/14/22 12:58 AW (Rec: 08/14/22 14:29 AW [id number]) OP-PT Subjective Patient Comments Patient Comments Did a lot of lifting after therapy last week and was very sore. Lasted a few days, was ok on Friday. PT-OP-F Manual Assessment Start: 04/29/22 17:21 Freq: Status: Active Protocol: Document 04/30/22 12:00 AW (Rec: 04/30/22 17:52 AW [id number]) Manual Assessments Soft Tissue Assessment Soft Tissue Mobility Assessment Increased density in bilateral upper traps, suboccipitals, upper cervical paraspinals. PT-OP-H Neuro Start: 04/29/22 17:21 Freq: Status: Active Protocol: Document 04/30/22 12:00 AW (Rec: 04/30/22 12:25 AW [id number]) Sensation Evaluation Gross Sensation Gross Sensation Left UE Impaired Sensation Description Burning Dermatome Impairments C6,C7 Comments Summary Comments Burning sensation occurs less frequently since surgery. Deep Tendon Reflex & Clonus Assessment Deep Tendon Reflex Bilateral Tricep Deep Tendon Reflex 1+ Diminished Bilateral Bicep Deep Tendon Reflex 1+ Diminished PT-OP-J Posture/Palpation/Skin Start: 04/29/22 17:21 Freq: Status: Active Protocol: Document 04/30/22 12:00 AW (Rec: 04/30/22 17:52 AW [id number]) Posture Evaluation Comments Posture Comments Pt has reduced cervical lordosis, dowager's hump. Arms are held forward and rounded. Skin Assessment Incisional Assessment Incision Appearance/Comments Well-healed anterior neck scar . PT-OP-K Range of Motion Start: 04/29/22 17:21 Freq: Status: Active Protocol: Document 04/30/22 12:00 AW (Rec: 04/30/22 12:25 AW [id number]) Cervical Spine Range of Motion Cervical Spine Active Degrees Testing Position Sitting Flexion 31 Extension 30 Rotation Left 38 Rotation Right 35 Lateral Flexion Left 26 Lateral Flexion Right 25 ROM Limitations Soft Tissue Tightness,Bony Restriction,Pain Shoulder Goniometric Range of Motion Shoulder Bilat Shoulder ROM WFL Yes Comments No restrictions noted with AROM or with overpressure. All endfeels WNL. PT-OP-L Special Tests Start: 04/29/22 17:21 Freq: Status: Active Protocol: Document 04/30/22 12:00 AW (Rec: 07/19/22 17:54 AW [id number]) Special Tests Cervical Spine Special Tests Spurling's Test Test Results negative bilaterally PT-OP-M Strength Start: 04/29/22 17:21 Freq: Status: Active Protocol: Document 04/30/22 12:00 AW (Rec: 04/30/22 17:54 AW [id number]) Cervical Spine Strength Cervical Spine Manual Muscle Testing Testing Position Sitting Flexion (C1-2) 4+ Good+ Extension 4 Good Rotation Left 4+ Good+ Rotation Right 4+ Good+ Lateral Flexion Left (C3) 4+ Good+ Lateral Flexion Right (C3) 4+ Good+ Shoulder Strength Shoulder Manual Muscle Testing bilat Flexion 5 Normal Extension 5 Normal Abduction (C5) 5 Normal External Rotation 4+ Good+ Internal Rotation 5 Normal Elbow/Forearm Strength Elbow and Forearm Manual Muscle Testing bilat Flexion (C6) 5 Normal Extension (C7) 5 Normal PT-OP-Q Treatments Start: 04/29/22 17:21 Freq: Status: Active Protocol: Document 08/14/22 12:58 AW (Rec: 08/14/22 14:29 AW [id number]) Cardio Equipment Upper Body Ergometer (UBE) Duration (Minutes) 5 RPM 75 Seat Position 12 Height 3.5 Other f/b Gym Equipment Cable Column (Body Solid) scap depression Details scap depression Resistance 4 Reps/Time 2x15 lat pulldown Details lat pulldown Resistance 4 Reps/Time x15 Therapeutic Exercises Supine Exercises foam roll - pec stretch, flexion, hAbd Supine Exercise Name 1. pec st 2. FF 3. HABD 4. serratus press 5. 1/2 X alternate sides Resistance 4# Equipment Used length over foam roller Reps/Minutes x10 each direction Comments cued no ROM past trunk, GH jt protection comfort range Prone Exercises T ball Prone Exercise Name T ball - I and T Equipment Used 55 cm ball Standing Exercises deadlift Standing Exercise Name deadlift/hip hinge Resistance 7# db Reps/Minutes clinic only Comments cues to not overextend L/S in stance wall slides - serratus Standing Exercise Name wall slides - serratus Side bilateral Resistance TB1 Comments cued body closer to wall GH extension Standing Exercise Name GH extension Resistance TB3 Reps/Minutes x20 squat tap Standing Exercise Name squat tap Equipment Used green chair, blue foam under feet Reps/Minutes 2x12 reps Comments good cervical neutral without fatigue Other Exercises bird dog Other Exercise Name bird dog - UE and LE Comments focus on cervical neutral cat camel Other Exercise Name cat camel PT-OP-R Modalities Start: 04/29/22 17:21 Freq: Status: Active Protocol: Document 06/04/22 16:04 AW (Rec: 06/04/22 17:03 AW [id number]) Hot Pack/Cold Pack Treatment Cold Pack Location neck, shoulders Patient Position Hooklying Treatment Duration (minutes) 10 Patient Tolerance Good PT-OP-T Assessment and Plan Start: 04/29/22 17:21 Freq: Status: Active Protocol: Document 08/14/22 12:58 AW (Rec: 08/14/22 14:29 AW [id number]) Physical Therapy Assessment Goals Four Impairment neck ROM Supervisor Hand Workers Goal (LTG) Pt will have sufficient confidence in cervical rotation to be able to drive. LTG Duration 09/24/22 Three Impairment pain STG Duration 06/04/22 Supervisor Hand Workers Goal (LTG) Pt will report average numeric pain rating 2/10 or less over the past two weeks 07/30/22 - Not getting as many headaches or tension at occiput. Avg pain rating over two weeks 2-3/10. LTG Duration 09/24/22 Two Impairment poor postural control Short Term Goal (STG) Pt will tolerate reading a book or tablet set up in front of her without increase in baseline pain 06/18/22 - Ok if at stable height that does not require flexion. 07/30/22 - Still gets spasm if book not held at eye level. STG Duration 06/04/22 Supervisor Hand Workers Goal (LTG) Pt will tolerate work such as weeding or cleaning chicken coop in bent forward position without increase in baseline pain. 07/30/22 - Still gets increased spasm with longer than 15 minutes in neck flexed position. LTG Duration 09/24/22 One Impairment lacks HEP Short Term Goal (STG) Pt will be instructed in HEP to improve cervical/thoracic mobility and strength to support therapy services provided in clinic 06/18/22 - PROGRESSING STG Duration GOAL MET Supervisor Hand Workers Goal (LTG) Pt will be indepedent with HEP to improve cervical/thoracic mobility and strength to promote return to regular activities. 07/30/22 - Progressing but not as regular as anticipated. LTG Duration 09/24/22 Assessment Summary Assessment Lis tolerates load in all exercises today without increase in neck or shoulder pain. She continues to complain of left shoulder radiating pain. She will see state federal relations deputy director later this month. Physical Therapy Plan Frequency and Duration Frequency of Treatment 1-2x/week Duration of treatment (weeks) 8 Plan of Care Start Date 07/30/22 Plan of Care End Date 09/24/22 Therapeutic Interventions Therapeutic Interventions Home Exercise Program,Manual Therapy,Neuromuscular Re- education,Self-Care/Home Management,Soft Tissue Mobilization,Taping, Therapeutic Activities, Therapeutic Exercises Modalities Cold Pack/Ice Massage,Hot Packs Next Visit Focus/Plan Next Note Type Treatment Note Next Visit Plan Consider more quadruped, thread the needle. Progress scapular control and shoulder strength as tolerated. Progress toward quadruped with emphasis on cervical neutral. Pt has foam roll, 1#, 3#, and 5# db at home to use for HEP as needed. Hand exercises? Begin lifting from waist height.
--- NOTE | 2022-08-21 15:19 | PT.OTN ---
Current Diagnoses Abnormal posture (08/21/22) Arthrodesis status (08/21/22) Physical Therapy Treatment Note PT-OP-A Visit Information Start: 04/29/22 17:21 Freq: Status: Active Protocol: Document 08/21/22 12:56 AW (Rec: 08/21/22 14:34 AW [id number]) Out-Patient Physical Therapy Visit Information Visit Information Visit Type Treatment Note Visit Start Time 13:45 Visit Stop Time 14:26 Total Visit Minutes 41 Visit Number 08/24 Evaluation Information Evaluation Date 04/30/22 PT-OP-B Current Condition Start: 04/29/22 17:21 Freq: Status: Active Protocol: Document 04/30/22 12:00 AW (Rec: 04/29/22 17:27 AW [id number]) Current Condition History of Current Condition Onset Date 03/07/22 Current Complaints neck pain and stiffness after cervical fusion History of Current Condition Lis has a long-standing history of back and neck pain. Earlier this year, she was having radicular symtpoms down both arms and her legs were giving out, was walking with a cane. Had lost a lot of strength and sensation in both sides of arms and legs. No incontinence. She elected C4-5 C5-6 ACDF 03/07/22 at [facility]. Stayed in the hospital one night. Moved into parents' apartment (next door ) after surgery for assist. Wore [place] [employer] collar for 6 weeks. She is getting a lot of headaches - mostly occipital and then radiating forward. Still has some swallow difficulty occasionally. Has essential tremor most notable in hands. She had a bad experience with lumbar injection due to what pt calls congenital stenosis. 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 She is walking a lot for weight loss and enjoyment. She still has some weakness and numbness in her RLE but improved since surgery and pt is no longer using a cane. Prior Treatments and Tests ACDF as above. PT for lumbar radiculopathy. Treatment Goals Patient/Caregiver Goals Pt would like to learn how to move safely. She would like to relieve headaches and improve tolerance for reading or working in a bent forward position PT-OP-C Subjective Start: 04/29/22 17:21 Freq: Status: Active Protocol: Document 08/21/22 12:56 AW (Rec: 08/21/22 14:34 AW [id number]) OP-PT Subjective Patient Comments Patient Comments Lis feels she is plateauing in therapy. May need to cancel final scheduled appointment due to schedule conflict. PT-OP-F Manual Assessment Start: 04/29/22 17:21 Freq: Status: Active Protocol: Document 04/30/22 12:00 AW (Rec: 04/30/22 17:52 AW [id number]) Manual Assessments Soft Tissue Assessment Soft Tissue Mobility Assessment Increased density in bilateral upper traps, suboccipitals, upper cervical paraspinals. PT-OP-H Neuro Start: 04/29/22 17:21 Freq: Status: Active Protocol: Document 04/30/22 12:00 AW (Rec: 04/30/22 12:25 AW [id number]) Sensation Evaluation Gross Sensation Gross Sensation Left UE Impaired Sensation Description Burning Dermatome Impairments C6,C7 Comments Summary Comments Burning sensation occurs less frequently since surgery. Deep Tendon Reflex & Clonus Assessment Deep Tendon Reflex Bilateral Tricep Deep Tendon Reflex 1+ Diminished Bilateral Bicep Deep Tendon Reflex 1+ Diminished PT-OP-J Posture/Palpation/Skin Start: 04/29/22 17:21 Freq: Status: Active Protocol: Document 04/30/22 12:00 AW (Rec: 04/30/22 17:52 AW [id number]) Posture Evaluation Comments Posture Comments Pt has reduced cervical lordosis, dowager's hump. Arms are held forward and rounded. Skin Assessment Incisional Assessment Incision Appearance/Comments Well-healed anterior neck scar . PT-OP-K Range of Motion Start: 04/29/22 17:21 Freq: Status: Active Protocol: Document 04/30/22 12:00 AW (Rec: 04/30/22 12:25 AW [id number]) Cervical Spine Range of Motion Cervical Spine Active Degrees Testing Position Sitting Flexion 31 Extension 30 Rotation Left 38 Rotation Right 35 Lateral Flexion Left 26 Lateral Flexion Right 25 ROM Limitations Soft Tissue Tightness,Bony Restriction,Pain Shoulder Goniometric Range of Motion Shoulder Bilat Shoulder ROM WFL Yes Comments No restrictions noted with AROM or with overpressure. All endfeels WNL. PT-OP-L Special Tests Start: 04/29/22 17:21 Freq: Status: Active Protocol: Document 04/30/22 12:00 AW (Rec: 04/30/22 17:54 AW [id number]) Special Tests Cervical Spine Special Tests Spurling's Test Test Results negative bilaterally PT-OP-M Strength Start: 04/29/22 17:21 Freq: Status: Active Protocol: Document 04/30/22 12:00 AW (Rec: 04/30/22 17:54 AW [id number]) Cervical Spine Strength Cervical Spine Manual Muscle Testing Testing Position Sitting Flexion (C1-2) 4+ Good+ Extension 4 Good Rotation Left 4+ Good+ Rotation Right 4+ Good+ Lateral Flexion Left (C3) 4+ Good+ Lateral Flexion Right (C3) 4+ Good+ Shoulder Strength Shoulder Manual Muscle Testing bilat Flexion 5 Normal Extension 5 Normal Abduction (C5) 5 Normal External Rotation 4+ Good+ Internal Rotation 5 Normal Elbow/Forearm Strength Elbow and Forearm Manual Muscle Testing bilat Flexion (C6) 5 Normal Extension (C7) 5 Normal PT-OP-Q Treatments Start: 04/29/22 17:21 Freq: Status: Active Protocol: Document 08/21/22 12:56 AW (Rec: 08/21/22 14:34 AW [id number]) Cardio Equipment Upper Body Ergometer (UBE) Duration (Minutes) 5 RPM 75 Seat Position 11 Height 4 Other f/b Gym Equipment Cable Column (Body Solid) scap depression Details scap depression Resistance 4 Reps/Time 2x15 lat pulldown Details lat pulldown Resistance 4 Reps/Time x15 Therapeutic Exercises Supine Exercises TS ext/ rolling Supine Exercise Name reviewed self performance, Equipment Used over foam roller foam roll - pec stretch, flexion, hAbd Supine Exercise Name 1. pec st 2. FF 3. HABD 4. serratus press 5. 1/2 X alternate sides Resistance 4# Equipment Used length over foam roller Reps/Minutes x10 each direction Comments cued no ROM past trunk, GH jt protection comfort range Prone Exercises T ball Prone Exercise Name T ball - I and T Equipment Used 55 cm ball Standing Exercises wall slides - serratus Standing Exercise Name wall slides - serratus Side bilateral Resistance TB1 Comments cued body closer to wall hAbd Standing Exercise Name hAbd Side bilateral Resistance TB2 Comments isometric hold while marching; cues for core stab Manual Therapy Treatment Soft Tissue Mobilization UT, SCM, subocc, cervical paraspinals Body Location B UT, LS, subocc, cervical paraspinals Mobilization Type Cross-Friction,Strumming Intensity/Depth Moderate Body Position Hooklying Comments manual, sustained pressure with MWM CS nods/turns Joint Mobilizations T1-4 Joint T1-4 Direction P>A Grade III Body Position Hooklying PT-OP-R Modalities Start: 04/29/22 17:21 Freq: Status: Active Protocol: Document 06/04/22 16:04 AW (Rec: 06/04/22 17:03 AW [id number]) Hot Pack/Cold Pack Treatment Cold Pack Location neck, shoulders Patient Position Hooklying Treatment Duration (minutes) 10 Patient Tolerance Good PT-OP-T Assessment and Plan Start: 04/29/22 17:21 Freq: Status: Active Protocol: Document 08/21/22 12:56 AW (Rec: 08/21/22 14:34 AW [id number]) Physical Therapy Assessment Goals Four Impairment neck ROM Usp Goal (LTG) Pt will have sufficient confidence in cervical rotation to be able to drive. LTG Duration 09/24/22 Three Impairment pain STG Duration 06/04/22 Loan Broker Goal (LTG) Pt will report average numeric pain rating 2/10 or less over the past two weeks 07/30/22 - Not getting as many headaches or tension at occiput. Avg pain rating over two weeks 2-3/10. LTG Duration 09/24/22 Two Impairment poor postural control Short Term Goal (STG) Pt will tolerate reading a book or tablet set up in front of her without increase in baseline pain 06/18/22 - Ok if at stable height that does not require flexion. 07/30/22 - Still gets spasm if book not held at eye level. STG Duration 06/04/22 Loan Broker Goal (LTG) Pt will tolerate work such as weeding or cleaning chicken coop in bent forward position without increase in baseline pain. 07/30/22 - Still gets increased spasm with longer than 15 minutes in neck flexed position. LTG Duration 09/24/22 One Impairment lacks HEP Short Term Goal (STG) Pt will be instructed in HEP to improve cervical/thoracic mobility and strength to support therapy services provided in clinic 06/18/22 - PROGRESSING STG Duration GOAL MET Loan Broker Goal (LTG) Pt will be indepedent with HEP to improve cervical/thoracic mobility and strength to promote return to regular activities. 07/30/22 - Progressing but not as regular as anticipated. LTG Duration 09/24/22 Assessment Summary Assessment Lis has good tolerance for exercise but does complain of some pain along SCM distribution. During STM, PT educated her on self-STM with good carryover for home. She has one remaining appointment on current authorization. Physical Therapy Plan Frequency and Duration Frequency of Treatment 1-2x/week Duration of treatment (weeks) 8 Plan of Care Start Date 07/30/22 Plan of Care End Date 09/24/22 Therapeutic Interventions Therapeutic Interventions Home Exercise Program,Manual Therapy,Neuromuscular Re- education,Self-Care/Home Management,Soft Tissue Mobilization,Taping, Therapeutic Activities, Therapeutic Exercises Modalities Cold Pack/Ice Massage,Hot Packs Next Visit Focus/Plan Next Note Type Discharge Summary Next Visit Plan Consider more quadruped, thread the needle. Progress scapular control and shoulder strength as tolerated. Progress toward quadruped with emphasis on cervical neutral. Pt has foam roll, 1#, 3#, and 5# db at home to use for HEP as needed. Hand exercises? Begin lifting from waist height.
--- NOTE | 2022-09-11 14:24 | PT.OPDS ---
Current Diagnoses Abnormal posture (08/21/22) Arthrodesis status (08/21/22) Visit Care Team Role Provider Type Edilia Galicia MD Family Provider Physician Primary Care Provider Specialty: Family Practice Address: [address] [place] [address], [facility] [place], [address] Email: [email or web address] Wilian Busby MD Attending Provider Non-Staff Referring Provider Specialty: Neurology Address: [facility], [address] [place] [address], [phone] Email: Visit Number Visit Number 08/24 Discharge Summary PT-OP-B Current Condition Start: 04/29/22 17:21 Freq: Status: Active Protocol: Document 04/30/22 12:00 AW (Rec: 04/29/22 17:27 AW [id number]) Current Condition History of Current Condition Onset Date 03/07/22 Current Complaints neck pain and stiffness after cervical fusion History of Current Condition Lis has a long-standing history of back and neck pain. Earlier this year, she was having radicular symtpoms down both arms and her legs were giving out, was walking with a cane. Had lost a lot of strength and sensation in both sides of arms and legs. No incontinence. She elected C4-5 C5-6 ACDF 03/07/22 at [facility]. Stayed in the hospital one night. Moved into parents' apartment (next door ) after surgery for assist. Wore [employer] collar for 6 weeks. She is getting a lot of headaches - mostly occipital and then radiating forward. Still has some swallow difficulty occasionally. Has essential tremor most notable in hands. She had a bad experience with lumbar injection due to what pt calls congenital stenosis. 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 She is walking a lot for weight loss and enjoyment. She still has some weakness and numbness in her RLE but improved since surgery and pt is no longer using a cane. Prior Treatments and Tests ACDF as above. PT for lumbar radiculopathy. Treatment Goals Patient/Caregiver Goals Pt would like to learn how to move safely. She would like to relieve headaches and improve tolerance for reading or working in a bent forward position PT-OP-C Subjective Start: 04/29/22 17:21 Freq: Status: Active Protocol: Document 08/21/22 12:56 AW (Rec: 08/21/22 14:34 AW [id number]) OP-PT Subjective Patient Comments Patient Comments Lis feels she is plateauing in therapy. May need to cancel final scheduled appointment due to schedule conflict. PT-OP-F Manual Assessment Start: 04/29/22 17:21 Freq: Status: Active Protocol: Document 04/30/22 12:00 AW (Rec: 04/30/22 17:52 AW [id number]) Manual Assessments Soft Tissue Assessment Soft Tissue Mobility Assessment Increased density in bilateral upper traps, suboccipitals, upper cervical paraspinals. PT-OP-H Neuro Start: 04/29/22 17:21 Freq: Status: Active Protocol: Document 04/30/22 12:00 AW (Rec: 04/30/22 12:25 AW [id number]) Sensation Evaluation Gross Sensation Gross Sensation Left UE Impaired Sensation Description Burning Dermatome Impairments C6,C7 Comments Summary Comments Burning sensation occurs less frequently since surgery. Deep Tendon Reflex & Clonus Assessment Deep Tendon Reflex Bilateral Tricep Deep Tendon Reflex 1+ Diminished Bilateral Bicep Deep Tendon Reflex 1+ Diminished PT-OP-J Posture/Palpation/Skin Start: 04/29/22 17:21 Freq: Status: Active Protocol: Document 04/30/22 12:00 AW (Rec: 04/30/22 17:52 AW [id number]) Posture Evaluation Comments Posture Comments Pt has reduced cervical lordosis, dowager's hump. Arms are held forward and rounded. Skin Assessment Incisional Assessment Incision Appearance/Comments Well-healed anterior neck scar . PT-OP-K Range of Motion Start: 04/29/22 17:21 Freq: Status: Active Protocol: Document 04/30/22 12:00 AW (Rec: 04/30/22 12:25 AW [id number]) Cervical Spine Range of Motion Cervical Spine Active Degrees Testing Position Sitting Flexion 31 Extension 30 Rotation Left 38 Rotation Right 35 Lateral Flexion Left 26 Lateral Flexion Right 25 ROM Limitations Soft Tissue Tightness,Bony Restriction,Pain Shoulder Goniometric Range of Motion Shoulder Bilat Shoulder ROM WFL Yes Comments No restrictions noted with AROM or with overpressure. All endfeels WNL. PT-OP-L Special Tests Start: 04/29/22 17:21 Freq: Status: Active Protocol: Document 04/30/22 12:00 AW (Rec: 04/30/22 17:54 AW [id number]) Special Tests Cervical Spine Special Tests Spurling's Test Test Results negative bilaterally PT-OP-M Strength Start: 04/29/22 17:21 Freq: Status: Active Protocol: Document 04/30/22 12:00 AW (Rec: 04/30/22 17:54 AW [id number]) Cervical Spine Strength Cervical Spine Manual Muscle Testing Testing Position Sitting Flexion (C1-2) 4+ Good+ Extension 4 Good Rotation Left 4+ Good+ Rotation Right 4+ Good+ Lateral Flexion Left (C3) 4+ Good+ Lateral Flexion Right (C3) 4+ Good+ Shoulder Strength Shoulder Manual Muscle Testing bilat Flexion 5 Normal Extension 5 Normal Abduction (C5) 5 Normal External Rotation 4+ Good+ Internal Rotation 5 Normal Elbow/Forearm Strength Elbow and Forearm Manual Muscle Testing bilat Flexion (C6) 5 Normal Extension (C7) 5 Normal PT-OP-T Assessment and Plan Start: 04/29/22 17:21 Freq: Status: Active Protocol: Document 09/11/22 14:21 AW (Rec: 09/11/22 14:23 AW [id number]) Physical Therapy Assessment Goals Four Impairment neck ROM Sub Prior Goal (LTG) Pt will have sufficient confidence in cervical rotation to be able to drive. 08/21/22 - GOAL MET LTG Duration 09/24/22 Three Impairment pain STG Duration 06/04/22 Sub Prior Goal (LTG) Pt will report average numeric pain rating 2/10 or less over the past two weeks 07/30/22 - Not getting as many headaches or tension at occiput. Avg pain rating over two weeks 2-3/10. LTG Duration 09/24/22 Two Impairment poor postural control Short Term Goal (STG) Pt will tolerate reading a book or tablet set up in front of her without increase in baseline pain 06/18/22 - Ok if at stable height that does not require flexion. 07/30/22 - Still gets spasm if book not held at eye level. STG Duration 06/04/22 Usp Goal (LTG) Pt will tolerate work such as weeding or cleaning chicken coop in bent forward position without increase in baseline pain. 07/30/22 - Still gets increased spasm with longer than 15 minutes in neck flexed position. LTG Duration 09/24/22 One Impairment lacks HEP Short Term Goal (STG) Pt will be instructed in HEP to improve cervical/thoracic mobility and strength to support therapy services provided in clinic 06/18/22 - PROGRESSING STG Duration GOAL MET Usp Goal (LTG) Pt will be indepedent with HEP to improve cervical/thoracic mobility and strength to promote return to regular activities. 07/30/22 - Progressing but not as regular as anticipated. LTG Duration GOAL MET Physical Therapy Plan Frequency and Duration Frequency of Treatment 1-2x/week Duration of treatment (weeks) 8 Plan of Care Start Date 07/30/22 Plan of Care End Date 09/24/22 Discharge Physical Therapy Discharge Reasons Patient Request Discharge Comments Lis did well with therapy, progressing her cervical ROM and stability to the point that she could manage daily tasks and driving with greater ease. She called to cancel her last appointment, noting she was pleased with her progress. Pt understands she will need a new referral to return to PT.
== END 2022-09-12 08:49 | disposition home or self-care (01) ==
LOC: PHYS 13:45
PROVIDERS: Family Provider Family Medicine; PCP Family Medicine; Referring Provider Neurological Surgery; Visit Provider Neurological Surgery
DX: Z98.1 Arthrodesis status (principal); R29.3 Abnormal posture
CPT/HCPCS: 97110; 97140; 97162; 97530

== ENCOUNTER → 2022-09-13 16:13 | Outpatient (CLI) | payer OTHER, MEDICAID, SELFPAY ==
--- NOTE | 2022-09-13 16:14 | DI.MRI.S_ITS ---
PROCEDURE: MR CERVICAL SPINE WO CON INDICATIONS: Radiculopathy, cervical region TECHNIQUE: Noncontrast sagittal T1 spin echo and T2 fast spin echo, sagittal STIR, foraminal oblique sagittal T2 fast spin echo, and axial gradient echo or T2 fast spin echo through the cervical spine. COMPARISON: [facility], CR, XR CERVICAL SPINE 4V OR 5V, 07/25/2022, 13:37. [facility], CR, XR CERVICAL SPINE 2V OR 3V, 04/12/2022, 18:27. [facility], MR, MR CERVICAL SPINE WO CON, 09/21/2021, 15:48. [facility], CT, CT CERVICAL SPINE WO CON, 01/21/2022, 9:21. FINDINGS: Image quality: There is artifact associated with the metallic hardware. Alignment and Curvature: There is overall straightening of the normal cervical lordosis. No focal AP alignment abnormality is seen. Bone Marrow: Marrow demonstrates normal overall signal. Spinal Cord: Visualized spinal cord has normal size and signal. No cerebellar tonsillar herniation. Paraspinous Soft Tissues: No paravertebral masses. Prevertebral soft tissues are normal in thickness. Anterior fixation hardware can be seen at the C4 through C6 levels. Disc spacers are seen at C4-C5 and C5-C6. C2-C3: Normal appearance. C3-C4: The disc height and disk signal are relatively well-preserved. Mild to moderate disc osteophyte complex is seen. Moderate facet joint hypertrophy is seen. There is moderate left-sided and no significant right-sided neural foraminal narrowing. No significant central canal narrowing is seen. When comparison is made with the prior images, these findings are similar. C4-C5: A mild degree of generalized disc osteophyte complex is seen. Moderate facet joint hypertrophy is seen. No significant neural foraminal narrowing is seen. No central canal narrowing is seen. This level is clearly improved compared to the preoperative MRI. C5-C6: Moderate generalized disc osteophyte complex is seen. Mild facet joint hypertrophy is seen. There is [id number] right-sided and at least moderate left-sided neural foraminal narrowing. Mild central canal narrowing is seen. There is clear interval improvement compared to the preoperative MRI. C6-C7: The disc height and disk signal are relatively well-preserved. Mild to moderate disc osteophyte complex is seen. Mild facet joint hypertrophy is seen. No significant neural foraminal or central canal narrowing can be seen. No significant change from the prior. C7-T1: The disc height and disk signal are relatively well-preserved. Mild to moderate disc osteophyte complex is seen. Mild facet joint hypertrophy is seen. No significant neural foraminal or central canal narrowing can be seen. When comparison is made with the prior images, these findings are similar. IMPRESSION: Postoperative changes anteriorly C4 through C6. The degenerative narrowing at C4-C5 and C5-C6 are clearly improved compared to the preoperative MRI. Otherwise, stable degenerative changes. Dictated by: Darinel Mittal M.D. on 09/13/2022 at 16:37 Approved by: Darinel Mittal M.D. on 09/13/2022 at 16:46
== END ==
PROVIDERS: Family Provider Family Medicine; PCP Family Medicine; Referring Provider Neurological Surgery; Visit Provider Neurological Surgery
DX: G95.9 Disease of spinal cord, unspecified; Z98.1 Arthrodesis status; M47.22 Other spondylosis with radiculopathy, cervical region
CPT/HCPCS: 72141

== ENCOUNTER → 2022-12-02 10:33 | Outpatient (CLI) | payer OTHER, MEDICAID, SELFPAY ==
[2022-12-02 11:26] LABS: Influenza A - CEPHEID Flu A NEGATIVE (NEGATIVE); Influenza B - CEPHEID Flu B NEGATIVE (NEGATIVE); Respiratory Syncytial Virus Negative (Negative)
[2022-12-02 11:27] LABS: COVID-19 CEPHEID 4-PLEX PCR Negative (Negative)
== END ==
PROVIDERS: Family Provider Family Medicine; PCP Family Medicine; Visit Provider Student in an Organized Health Care Education/Training Program
DX: J02.9 Acute pharyngitis, unspecified (principal)
CPT/HCPCS: 0241U

== ENCOUNTER → 2022-12-03 07:44 | Outpatient (CLI) | payer OTHER, MEDICAID, SELFPAY ==
[2022-12-03 09:29] LABS: Add Manual Diff / Slide Review NO; Basophils Absolute Auto 0 /uL (0-100); Basophils Percent Auto 0.6 % (0-2); Eosinophils Absolute Auto 200 /uL (0-450); Eosinophils Percent Auto 3.3 % (2-4); Hematocrit 40.3 % (36-46); Hemoglobin 13.8 g/dL (12.0-16.0); Lymphocytes Absolute Auto 1600 /uL (1100-4500); Lymphocytes Percent Auto 27.8 % (25-40); Mean Corpuscular HGB Conc 34.2 % (30-36); Mean Corpuscular Hemoglobin 29.7 PG (26-34); Mean Corpuscular Volume 86.6 fL (80-100); Monocytes Absolute Auto 400 /uL (0-900); Monocytes Percent Auto 6.2 % (3-14); Neutrophils Absolute Auto 3700 /uL (1500-7000); Neutrophils Percent Auto 62.1 % (50-75); Platelet Count 219 X10^3/uL (150-400); Red Blood Cell Count 4.65 X10^6/uL (4.0-5.2); Red Cell Distribution Width 13.8 % (11.6-14.8); White Blood Cell Count 5.9 X10^3/uL (4.5-11.0)
[2022-12-03 09:45] LABS: Alanine Aminotransferase 26 IU/L (<35); Albumin 4.2 g/dL (3.5-5.0); Albumin Globulin Ratio 1.3 (1.0-2.8); Alkaline Phosphatase 61 U/L (38-126); Aspartate Aminotransferase 26 IU/L (14-36); BUN Creatinine Ratio 15.6 (6-22); Bilirubin Total 0.4 mg/dL (0.2-1.3); Blood Urea Nitrogen 10 mg/dL (7-17); Calcium 9.3 mg/dL (8.4-10.2); Carbon Dioxide 24 mmol/L (22-32); Chloride 105 mmol/L (98-107); Estimated Glomerular Filt Rate > 60 mL/min (>60); Globulin 3.2 g/dL (1.7-4.1); Glucose 84 mg/dL (70-100); HEMOLYSIS < 15 (0-50); Potassium 4.4 mmol/L (3.4-5.1); Sodium 138 mmol/L (137-145); Total Protein 7.4 g/dL (6.3-8.2)
[2022-12-03 10:16] LABS: TSH w/ Reflex to FT4 1.18 uIU/mL (0.47-4.68)
== END ==
PROVIDERS: Family Provider Family Medicine; PCP Family Medicine; Referring Provider Student in an Organized Health Care Education/Training Program; Visit Provider Student in an Organized Health Care Education/Training Program
DX: R07.0 Pain in throat (principal); E03.9 Hypothyroidism, unspecified; E04.1 Nontoxic single thyroid nodule
CPT/HCPCS: 36415; 80053; 84443; 85025

== ENCOUNTER → 2023-01-17 10:33 | Outpatient (CLI) | payer OTHER, MEDICAID, SELFPAY ==
--- NOTE | 2023-01-17 10:35 | DI.US.S_ITS ---
PROCEDURE: US THYROID INDICATIONS: PAIN; F/U NODULE TECHNIQUE: Real-time scanning was performed of the thyroid gland, with image documentation. COMPARISON: [facility], US, US THYROID, 08/16/2020, 10:50. FINDINGS: Right: Thyroid lobe measures 5.2 x 1.4 x 2.2 cm, and is homogeneous in echotexture. Left: Thyroid lobe measures 4.7 x 1.1 x 1.4 cm, and is homogenous in echotexture. Isthmus: 2 mm thick. Nodule number: 1 Location: Right inferior pole Size: 2.4 x 1.4 x 2.2 cm, previously 1.9 x 1.1 x 1.6 cm. Composition: Solid Echogenicity: Isoechoic Shape: wider than tall. Margins: Smooth Echogenic foci: Macro calcification Total points: 4 ACR TI-RADS category: Moderate suspicion IMPRESSION: Slight interval growth of the moderate suspicion thyroid nodule compared with 2020. Baseline change of 121% growth. Consider re-FNA. ACR TI-RADS definitions and recommendations: TI-RADS 1 (benign): 0 points. FNA not needed. TI-RADS 2 (not suspicious): 2 points. FNA not needed. TI-RADS 3 (mildly suspicious): 3 points. * FNA if 2.5 cm or larger, follow up if 1.5 cm or larger (at 1, 3, and 5 years). TI-RADS 4 (moderately suspicious): 4-6 points. * FNA if 1.5 cm or larger, follow up if 1 cm or larger (at 1, 2, 3, and 5 years). TI-RADS 5 (highly suspicious): 7 points or more. * FNA if 1 cm or larger, follow up if 0.5 cm or larger (every year for 5 years). Dictated by: Ambrocio Wheeler M.D. on 01/17/2023 at 11:22 Approved by: Ambrocio Wheeler M.D. on 01/17/2023 at 11:25
== END ==
PROVIDERS: Family Provider Family Medicine; PCP Family Medicine; Referring Provider Student in an Organized Health Care Education/Training Program; Visit Provider Student in an Organized Health Care Education/Training Program
DX: E04.1 Nontoxic single thyroid nodule (principal); R07.0 Pain in throat; R49.0 Dysphonia
CPT/HCPCS: 76536

== ENCOUNTER → 2023-01-20 08:04 | Outpatient (CLI) | payer OTHER, MEDICAID, SELFPAY ==
[2023-01-20 09:26] LABS: Cholesterol 251 mg/dL (140-199); HDL Cholesterol 52 mg/dL (40-60); LDL Cholesterol Calculated 157 mg/dL (<100); Triglycerides 212 mg/dL (35-150)
== END ==
PROVIDERS: Family Provider Family Medicine; PCP Family Medicine; Referring Provider Family Medicine; Visit Provider Family Medicine
DX: E03.9 Hypothyroidism, unspecified (principal); Z13.220 Encounter for screening for lipoid disorders; G89.29 Other chronic pain; Z79.899 Other long term (current) drug therapy
CPT/HCPCS: 36415; 80061

== ENCOUNTER → 2023-02-12 14:30 | Outpatient (CLI) | payer OTHER, MEDICAID, SELFPAY ==
--- NOTE | 2023-02-12 | PATH_ITS ---
Note [facility] Accession Number: [id number] TESTS RESULT FLAG UNITS REF RANGE LAB Clinician Provided Cytology Information No. of containers..01 Other (Miscellaneous) No. of containers..02 Previously Prepared Cytology Slide Source: RIGHT THYROID NODULE DIAGNOSIS: RIGHT THYROID NODULE INCONCLUSIVE. BETHESDA CATEGORY III. ATYPIA OF UNDETERMINED SIGNIFICANCE. MOLECULAR STUDIES PENDING; RESULTS WILL BE REPORTED SEPARATELY. Pathologist ICD10: R89.6 Signed out by: Shaneka Brown MD, Pathologist NPI- [id number] Performed by: Casey Singletary, Outside Physical Damage Appraiser ([facility]) Gross description: 30 CC, PINK, CLEAR RECIEVED: IN CYTOLYT WITH 6 ALCOHOL FIXED AND 6 QUICK STAINED SLIDES ALSO 1 RNA VIAL WAS RECEIVED.VO /VDU 02/13/2023 0615 Local FLAG LEGEND: L-Low Normal,H-High Normal,LL-Alert Low,HH-Alert High <-Panic Low,>-Panic High,A-Abnormal,AA-Critical Abnormal Performed at: 01 =Z [facility] [address], [place] [address] Terell Rainey MD, Performed at: 01 [facility] [address], [place], [place] [id number] MD Terell Rainey MD Phone: [phone]
--- NOTE | 2023-02-12 14:31 | DI.US.S_ITS ---
PROCEDURE: US FINE NEEDLE ASPIRATION INDICATIONS: NODULE TECHNIQUE: The indications, alternatives, benefits, risks, and complications of the procedure were explained to the patient. Written informed consent was obtained and placed in the chart. The thyroid region was examined sonographically and a site was chosen for ultrasound guided percutaneous sampling. The skin was prepared and draped in the usual fashion, and anesthetized with 1% lidocaine infiltrated from the skin down to the thyroid gland. Multiple passes were then performed, with contents emptied into an appropriate pathology specimen container. A bandage was applied to the area of access at completion of the study. COMPARISON: [facility], US, US FINE NEEDLE ASPIRATION, 08/24/2019, 9:34. FINDINGS: Location(s) of lesion(s) sampled: Right inferior pole [place]: 25 gauge hypodermic needles. Number of passes: 6 Medications: 1% lidocaine for local anaesthesia. Complications: None. IMPRESSION: Successful ultrasound-guided thyroid nodule fine needle aspiration, with cytology results pending. Please see chart below for management recommendations based on cytology results. [place] [facility] ReportingRecommendationsNon-diagnostic* Repeat US-guided FNA, with on-site cytology evaluation if possible. * Repeated non-diagnostic nodules without high suspicion US features: close observation vs surgical consult. * Consider surgery if nodule has high suspicion US features, grows >20% in 2 dimensions on followup, or patient has clinical risk factors for malignancy. Benign* If nodule has high suspicion US features: repeat US and FNA within 12 months. * If nodule has low to intermediate suspicion US features: repeat US at 12-24 months. If nodule grows (20% increase in at least 2 dimensions, with minimal increase of 2 mm or >50% change in volume), or development of new suspicious US features, then repeat FNA or continue followup. * If nodule has very low suspicion US features: followup US at >24 months. Atypia of undetermined significance, follicular lesion of undetermined significanceRepeat FNA, molecular testing, followup US, or surgical consult.Follicular neoplasm, suspicious for follicular neoplasmSurgical consult; also consider molecular testing. Suspicious for malignancySurgical consult.MalignantSurgical consult. Dictated by: Ambrocio Wheeler M.D. on 02/12/2023 at 17:14 Approved by: Ambrocio Wheeler M.D. on 02/12/2023 at 17:15
== END ==
PROVIDERS: Family Provider Family Medicine; PCP Family Medicine; Referring Provider Family Medicine; Visit Provider Family Medicine
DX: E04.1 Nontoxic single thyroid nodule (principal)
CPT/HCPCS: 10005

== ENCOUNTER → 2023-02-25 21:46 | Outpatient (CLI) | payer OTHER, MEDICAID, SELFPAY ==
--- NOTE | 2023-02-25 21:54 | DI.RAD.S_ITS ---
PROCEDURE: XR CERVICAL SPINE 4V OR 5V INDICATIONS: Cervical Spondylosis TECHNIQUE: 5 views of the cervical spine acquired. COMPARISON: , [facility], XR CERVICAL SPINE 4V OR 5V, 07/25/2022, 13:37. , CR, XR CERVICAL SPINE 2V OR 3V, 04/12/2022, 18:27. FINDINGS: Bones: Postsurgical changes again seen from anterior cervical disc fusion with hardware extending from C4 through C6. Hardware appears to be intact with unchanged alignment. A deltoid is normally aligned on open-mouth view. No cervical ribs. Oblique views demonstrate bony neural foraminal narrowing at the C5-6 level on the right. Left oblique view is suboptimally positioned and the bony neural foramina are not well evaluated. Soft tissues: No prevertebral soft tissue swelling. IMPRESSION: Stable postsurgical changes and alignment of the cervical spine. Approved by: Hima Luna M.D. on 02/26/2023 at 10:10
== END ==
PROVIDERS: Family Provider Family Medicine; PCP Family Medicine; Referring Provider Physician Assistant Medical; Visit Provider Physician Assistant Medical
DX: M47.812 Spondylosis without myelopathy or radiculopathy, cervical region (principal); Z98.1 Arthrodesis status
CPT/HCPCS: 72050

== ENCOUNTER → 2023-07-31 13:40 | Outpatient (CLI) | payer OTHER, MEDICAID, SELFPAY ==
[2023-07-31 15:51] LABS: TSH w/ Reflex to FT4 2.35 uIU/mL (0.47-4.68)
== END ==
PROVIDERS: Family Provider Family Medicine; PCP Family Medicine; Referring Provider Otolaryngology; Visit Provider Otolaryngology
DX: E04.1 Nontoxic single thyroid nodule (principal)
CPT/HCPCS: 36415; 84443

== ENCOUNTER 2023-09-01 13:30 | Outpatient (RCR) | payer OTHER, MEDICAID, SELFPAY ==
--- NOTE | 2023-08-07 16:00 | OT.OP.EVAL ---
Visit Care Team Role Provider Type Edilia Galicia MD Family Provider Physician Primary Care Provider Specialty: Family Practice Address: [address] [place] [address], [address], [place], [address] Email: [email or web address] Maki Huntley PA-C Attending Provider Advanced Import Specialist Referring Provider Specialty: Medical Address: [address] [place] [address]. [address], [place], [address] Email: [email or web address] Occupational Therapy Initial Evaluation OT Outpatient Adult Evaluation Start: 08/08/23 13:12 Freq: Status: Active Protocol: Document 08/07/23 16:00 AMS (Rec: 08/08/23 13:20 AMS [id number]) General Information - Adult Visit Number 1 Plan of Care Dates 08/07/23 - 10/02/23 Insurance Information CHPW; MAX 12 OT visits [facility] including evaluation Visit Start Time 08:45 Visit Stop Time 09:30 Total Visit Minutes 45 Treatment Setting Outpatient Care Note Type Initial Evaluation Referring Physician Maki Huntley PA-C; PCP = Edilia Galicia MD Reason for Referral L shoulder pain/discomfort Identification Confirmed Yes Identification Confirmed By Self Goals Short Term Goals 1. Lis will present with increased active range of motion of the left shoulder, demonstrating 150 degrees active pain-free left shoulder flexion, which will support above shoulder height/object manipulation and address stiffness reported in the shoulder. Political Advisor Goals 1. Lis will be modified independent with L upper extremity home exercise program utilizing provided written and visual instructions as needed. Assessment/Plan Treatment Assessment Lis is a 37 year-old right hand dominant female referred to outpatient OT secondary to L shoulder pain/discomfort. Medical history is significant for allergies to tape, back pain (L4-L5 hernia), depression, dizziness, falls, migraines/headaches, neck fusion, neuropathy, thyroid disorder, joint hypermobility, Postural orthostatic tachycardia syndrome, arthritis. Verbal report of tremors as well. Surgical history is significant for R thyroid lobectomy, C4-C6 ACDF, bilateral inguinal hernia, R CTR, endometriosis lap, L ankle arthroscopy, R sh neuroma removal. Most recent hospital stay occurred 03/07/22 to 03/08/22. Denial of any current UE lifting restrictions. Lis reported that she has had PT in which they worked on strengthening of her neck musculature, and L shoulder rotator cuff muscles , as well as addressed TMJ (h/ o locking of jaw w/ noted clicking/crepitus). Lis also reported h/o US guided L sh corticosteroid injection ( which had no significant impact on pain level) which was provided 10/17/22 and prior imaging of the L shoulder that occurred at [facility] (in which she had her neck treatments). Lis denied currently working; [place]. She has returned to driving; she has difficulties attending to blind spots. HEP for shoulder included sidelying sleeper stretch, snow angels and sh flex at wall. L shoulder pain/discomfort presented approximately 2 years ago. Indication of 2 out of 10 on Pain Assessment Grid relative to L anterior shoulder. Cannot place any straps on top of L shoulder d/ t sliding off/pain/discomfort, including bra strap. (+) self -modification of bras for daily comfort. QuickDASH UE Outcome Measure Score = 29.54. 140 degrees active L sh flex vs 155 degrees active R sh flex; 75 degrees active L sh ER vs 90 degrees R sh ER; 55 degrees active L sh ext vs 60 degrees R sh ext. WFL bilateral sh abd; able to bring R elbow to ear; approximately 2 inches from L ear w/ active sh abd. (-) scapular winging. Good functional range of motion of L UE relative to placement of hand on top of head, back of head, lower back. Although some anterior tightness of shoulder was reported w/ placement of L hand on lower back/spine. Lis would likely benefit from outpatient OT to add to current L UE home exercise program to support range of motion and to address pain/ discomfort of the L shoulder. Rec further evaluation of shoulder, including manual muscle testing given that she denies any UE lifting restrictions. Home Exercise Program 08/08/23 = Instructed in gravity assisted sidelying L UE sh abd stretch; may need to use rolled up towel and/or thin pillow to support L UE initially and/or use heat prior to this stretch; another option may be to use cane or towel and/or begin w/ this stretch at the wall w/ L arm supported (leaning into wall). Length of treatment (weeks) 8 Plan of Care Start Date 08/07/23 Plan of Care End Date 10/02/23 Treatment Frequency Once a Week Therapeutic Contents Active Range of Motion, Adaptive Equipment Education, Client Education,Functional Activities,Home Exercise Program,Joint Protection, Manual Therapy,Education, Neurodevelopment Treatment, Neuromuscular Re-Education, Self-Care,Stretching/ Flexibility Activities, Therapeutic Activities, Therapeutic Exercises, Modalities Modalities As Needed,As Prescribed Additional Types of Modalities Heat/Ice/Ultrasound
--- NOTE | 2023-08-19 16:00 | OT.OP.TRT ---
Visit Care Team Role Provider Type Edilia Galicia MD Family Provider Physician Primary Care Provider Specialty: Family Practice Address: [address] [place] [address], [address], [place], [address] Email: [email or web address] Maki Huntley PA-C Attending Provider Advanced Survey Manager Referring Provider Specialty: Medical Address: [address] [place] [address], [address], [place], [address] Email: [email or web address] Occupational Therapy Treatment Note OT Outpatient Treatment Note - Adult Start: 08/08/23 13:12 Freq: Status: Active Protocol: Document 08/19/23 16:00 AMS (Rec: 08/20/23 08:32 AMS [id number]) OT Outpatient Adult Treatment Note Session Time Visit Start Time 10:30 Visit Stop Time 11:15 Total Visit Minutes 45 Visit Information Visit Number 11/24 Plan of Care Dates 08/07/23 - 10/02/23 Insurance Information [employer]PW; MAX 12 OT visits [facility] including evaluation Setting Treatment Setting Outpatient Care Visit Type Note Type Treatment Note General Information General Information Referred secondary to L sh pain/discomfort/decreased active range of motion compared to R shoulder/R sh weakness. Medical history is significant for allergies to tape, back pain (L4-L5 hernia) , depression, dizziness, falls , migraines/headaches, neck fusion, neuropathy, thyroid disorder, joint hypermobility, Postural orthostatic tachycardia syndrome, arthritis. Verbal report of tremors as well. Surgical history is significant for R thyroid lobectomy, C4-C6 ACDF, bilateral inguinal hernia, R CTR, endometriosis lap, L ankle arthroscopy, R sh neuroma removal. Most recent hospital stay occurred 03/07/22 to 03/08/22. Denial of any current UE lifting restrictions. Maki Huntley PA-C; PCP = Edilia Galicia MD - Subjective Identification Type Name Identification Reconciled With Medical Record Observations No new concerns were reported. Lis indicated that she has 2 and 3# DB at home; she executes 'w' and 'y' door stretches bilaterally, child's pose, as previously rec by PT . Patient/Caregiver Compliance with Home Good Exercise Program - Objective Objective Measurements 08/19/23 = Current HEP includes child's pose, 'w' and 'y' doorway stretch, sh flex at wall w/ elbows slightly flexed , sleeper stretch, snow angels . Short Term Goals 1. Lis will present with increased active range of motion of the left shoulder, demonstrating 150 degrees active pain-free left shoulder flexion, which will support above shoulder height/object manipulation and address stiffness reported in the shoulder. Correction Goals 1. Lis will be modified independent with L upper extremity home exercise program utilizing provided written and visual instructions as needed. - Exercises 3 Descriptor L UE Strengthening. L sh abd. 3 x 10. 1# DB. 2 Descriptor AROM Sidelying L sh abd. 1 x 10. 1 Descriptor ROM. Sidelying L sh abd stretch. 20 sec. x 2. Sidelying L sh abd stretch w/ use of light weight. 1# DB. 20 to 30 sec hold. x 2. Cane diagonals. Reviewed doorway stretches. 'w ' and 'y'. Doorway frame. 20 sec hold. x 1 rep. Child's pose modified to sitting. Child's pose to left and to right. 20 sec hold. x 2 reps each direction. Thread the needle. Modified w/ use of mat. 20 sec hold. - Assessment Assessment of Improvement Decreased L sh strength noted w/ MMT. Reviewed current home exercise program stretches and progressed HEP w/ addition of light resistance. Improved range of motion of L sh abd near end of session vs beginning of treatment session . Rec introducing additional resistance exercises at time of next treatment session. Overall, good session. Lis would likely continue to benefit from outpatient OT to add to current L UE home exercise program to support range of motion and to address pain/discomfort of the L shoulder. Rec further evaluation of shoulder, including manual muscle testing given that she denies any UE lifting restrictions. Home Exercise Program 08/19/23= Resisted. L sh abd sidelying. 3 x 10 to 3 x 15 reps. Every other day or 3 x per week. Rec use of light weight 1#DB or small can of food. Addition of light weight , 1# DB or small can of food w / sidelying L sh abd stretch to assist w/ stretch as tolerated. - Plan Therapy Recommendations Continue with Current Program, Advance per Rehabilitation Protocol
--- NOTE | 2023-08-25 14:36 | OT.OP.TRT ---
Visit Care Team Role Provider Type Edilia Galicia MD Family Provider Physician Primary Care Provider Specialty: Family Practice Address: [address] [place] [address], [address], [place], [address] Email: [email or web address] Maki Huntley PA-C Attending Provider Advanced Adolescent Coordinator Referring Provider Specialty: Medical Address: [address] [place] [address], [address], [place], [address] Email: [email or web address] Occupational Therapy Treatment Note OT Outpatient Treatment Note - Adult Start: 08/08/23 13:12 Freq: Status: Active Protocol: Document 08/25/23 14:26 AMS (Rec: 08/25/23 14:36 AMS [id number]) OT Outpatient Adult Treatment Note Session Time Visit Start Time 13:30 Visit Stop Time 14:20 Total Visit Minutes 50 Visit Information Visit Number 12/22 Plan of Care Dates 08/07/23 - 10/02/23 Insurance Information CHPW; MAX 12 OT visits [facility] including evaluation Setting Treatment Setting Outpatient Care Visit Type Note Type Treatment Note General Information General Information Referred secondary to L sh pain/discomfort/decreased active range of motion compared to R shoulder/R sh weakness. Medical history is significant for allergies to tape, back pain (L4-L5 hernia) , depression, dizziness, falls , migraines/headaches, neck fusion, neuropathy, thyroid disorder, joint hypermobility, Postural orthostatic tachycardia syndrome, arthritis. Verbal report of tremors as well. Surgical history is significant for R thyroid lobectomy, C4-C6 ACDF, bilateral inguinal hernia, R CTR, endometriosis lap, L ankle arthroscopy, R sh neuroma removal. Most recent hospital stay occurred 03/07/22 to 03/08/22. Denial of any current UE lifting restrictions. Maki Huntley PA-C; PCP = Edilia Galicia MD - Subjective Identification Type Name Identification Reconciled With Medical Record Observations No new concerns were reported. Lis reported that she is doing her stretches daily and her exercises/resistance exercises every other day. Lis indicated that she has 2 and 3# DB at home; she executes 'w' and 'y' door stretches bilaterally, child's pose, as previously rec by PT . Patient/Caregiver Compliance with Home Good Exercise Program - Objective Objective Measurements 08/19/23 = Current HEP includes child's pose, 'w' and 'y' doorway stretch, sh flex at wall w/ elbows slightly flexed , sleeper stretch, snow angels . Short Term Goals 1. Lis will present with increased active range of motion of the left shoulder, demonstrating 150 degrees active pain-free left shoulder flexion, which will support above shoulder height/object manipulation and address stiffness reported in the shoulder. Primary School Teacher Goals 1. Lis will be modified independent with L upper extremity home exercise program utilizing provided written and visual instructions as needed. - Exercises 4 Descriptor UEB. x 10 minutes. Forwards and backwards w/ UEB positioned at sh height. 3 Descriptor L UE Strengthening. L sh abd. Sidelying. 3 x 10. 1 # DB. L sh hor abd. Sidelying. 3 x 10. 1# DB. L sh ext. Sidelying. 3 x 10. 1 # DB (*Discomfort near end of 3rd set w/ reduction in ROM). L sh flex. 'I'. Trunk flex. 3 x 10. R sh flex. I. Trunk flex . 3 x 10. L sh hor abd. I. 3 x 10. R 1 x 10; 1 x 5. 2 Descriptor AROM Sidelying L sh abd. Hold of 20 sec. x 2. 1 x 5 active sh abd . 1 Descriptor ROM. Child's pose midline. 20 sec hold. x 1 rep. Modified tall kneeling at mat. Child's pose to left and to right. 20 sec hold. x 2 reps each direction. Modified lunge at mat. N/A 08/25/23 Sidelying L sh abd stretch. 20 sec. x 2. Sidelying L sh abd stretch w/ use of light weight. 1# DB. 20 to 30 sec hold. x 2. Cane diagonals. Reviewed doorway stretches. 'w ' and 'y'. Doorway frame. 20 sec hold. x 1 rep. Thread the needle. Modified w/ use of mat. 20 sec hold. - Assessment Assessment of Improvement (+) carry-over of range of motion exercises; completing resistance/strengthening exercises every other day. Improved L sh range of motion post- exercises noted/active L sh abd. Decreased L sh strength. Introduced additional L sh resistance exercises. Increased crepitus of L sh w/ hor sh abd w/ trunk flex; discomfort reported w/ L sh ext in sidelying w/ increased range of motion - modified w/ reduction of sh ext). Decreased L sh stabilization observation w/ trunk flex combined w/ hor sh abd; sidelying sh exercises may be a better option for Lis versus trunk flex. Overall, good session. Lis would likely continue to benefit from outpatient OT to add to current L UE home exercise program to support range of motion and to address pain/discomfort of the L shoulder. Rec further evaluation of shoulder, including manual muscle testing given that she denies any UE lifting restrictions. Home Exercise Program 08/19/23= Resisted. L sh abd sidelying. 3 x 10 to 3 x 15 reps. Every other day or 3 x per week. Rec use of light weight 1#DB or small can of food. Addition of light weight , 1# DB or small can of food w / sidelying L sh abd stretch to assist w/ stretch as tolerated. - Plan Therapy Recommendations Continue with Current Program, Advance per Rehabilitation Protocol
--- NOTE | 2023-09-01 15:53 | OT.OP.TRT ---
Visit Care Team Role Provider Type Edilia Galicia MD Family Provider Physician Primary Care Provider Specialty: Family Practice Address: [address] [place] [address], [address], [place], [address] Email: [email or web address] Maki Huntley PA-C Attending Provider Advanced Computer Equipment Installer Referring Provider Specialty: Medical Address: [address] [place] [address], [address], [place], [address] Email: [email or web address] Occupational Therapy Treatment Note OT Outpatient Treatment Note - Adult Start: 08/08/23 13:12 Freq: Status: Active Protocol: Document 09/01/23 15:43 AMS (Rec: 09/01/23 15:53 AMS [id number]) OT Outpatient Adult Treatment Note Session Time Visit Start Time 13:40 Visit Stop Time 14:25 Total Visit Minutes 45 Visit Information Visit Number 01/22 Plan of Care Dates 08/07/23 - 10/02/23 Insurance Information CHPW; MAX 12 OT visits [facility] including evaluation Setting Treatment Setting Outpatient Care Visit Type Note Type Treatment Note General Information General Information Referred secondary to L sh pain/discomfort/decreased active range of motion compared to R shoulder/R sh weakness. Medical history is significant for allergies to tape, back pain (L4-L5 hernia) , depression, dizziness, falls , migraines/headaches, neck fusion, neuropathy, thyroid disorder, joint hypermobility, Postural orthostatic tachycardia syndrome, arthritis. Verbal report of tremors as well. Surgical history is significant for R thyroid lobectomy, C4-C6 ACDF, bilateral inguinal hernia, R CTR, endometriosis lap, L ankle arthroscopy, R sh neuroma removal. Most recent hospital stay occurred 03/07/22 to 03/08/22. Denial of any current UE lifting restrictions. Maki Huntley PA-C; PCP = Edilia Galicia MD - Subjective Identification Type Name Identification Reconciled With Medical Record Observations No new concerns were reported by Lis. She indicated that she has not done her exercises as much as of late d /t busy schedule, including neice's birthday. Lis indicated that she has 2 and 3 # DB at home; she executes 'w' and 'y' door stretches bilaterally, child's pose, as previously rec by PT. She also has a stationary bike. Patient/Caregiver Compliance with Home Good Exercise Program - Objective Objective Measurements 08/19/23 = Current HEP includes child's pose, 'w' and 'y' doorway stretch, sh flex at wall w/ elbows slightly flexed , sleeper stretch, snow angels . Short Term Goals 1. Lis will present with increased active range of motion of the left shoulder, demonstrating 150 degrees active pain-free left shoulder flexion, which will support above shoulder height/ object manipulation and address stiffness reported in the shoulder. 2. Lis will demonstrate increased left shoulder strength: 2a. 5/5 MMT L sh flexion. 2b. 5/5 MMT L sh abduction. 2c. 5/5 MMT L sh horizontal abduction. 2d. 5/5 MMT L sh horizontal adduction. Jail Goals 1. Lis will be modified independent with L upper extremity home exercise program utilizing provided written and visual instructions as needed. - Exercises 4 Descriptor UEB. x 10 minutes. Forwards and backwards w/ UEB positioned at sh height. 3 Descriptor L UE Strengthening. L sh abd. Sidelying. 3 x 15. 1 # DB. L sh hor abd. Sidelying. 3 x 15. 1# DB. L sh ext. Sidelying. 3 x 15. 1 # DB (08/25/23 = *Discomfort near end of 3rd set w/ reduction in ROM). L sh ER. Sidelying. 4 x 15. 1# DB. N/A 09/01/23 L sh flex. 'I'. Trunk flex. 3 x 10. R sh flex. I. Trunk flex . 3 x 10. L sh hor abd. I. 3 x 10. R 1 x 10; 1 x 5. 2 Descriptor AROM Sidelying L sh abd. Hold of 20 sec. x 2. 1 Descriptor ROM. Child's pose midline. 20 sec hold. x 1 rep. Modified tall kneeling at mat. Child's pose to left and to right. 20 sec hold. x 2 reps each direction. Modified lunge at mat. N/A 08/25/23 Sidelying L sh abd stretch. 20 sec. x 2. Sidelying L sh abd stretch w/ use of light weight. 1# DB. 20 to 30 sec hold. x 2. Cane diagonals. Reviewed doorway stretches. 'w ' and 'y'. Doorway frame. 20 sec hold. x 1 rep. Thread the needle. Modified w/ use of mat. 20 sec hold. - Assessment Assessment of Improvement Advanced L sh light resistance exercises. (-) c/o of discomfort of the L shoulder w / light resisted sh extension. Given infrequent request and/ or need for rest breaks between sets and/or exercises, recommend increasing resistance, as well as alt between the various exercises. Rec trialing proprioceptive exercises/sh stabilization exercises and incorporating sh elevation w/ resistance given bra strap frequently falling off of the shoulder. Overall, good session. Lis would likely continue to benefit from outpatient OT to add to current L UE home exercise program to support range of motion and to address pain/discomfort of the L shoulder. Rec further evaluation of shoulder, including manual muscle testing given that she denies any UE lifting restrictions. Home Exercise Program 09/01/23= Rec consideration of resisted sh elevation given c /o bra strap. 08/19/23= Resisted. L sh abd sidelying. 3 x 10 to 3 x 15 reps. Every other day or 3 x per week. Rec use of light weight 1#DB or small can of food. Addition of light weight , 1# DB or small can of food w / sidelying L sh abd stretch to assist w/ stretch as tolerated. - Plan Therapy Recommendations Continue with Current Program, Advance per Rehabilitation Protocol
--- NOTE | 2023-10-08 09:17 | OT.OP.DC ---
Visit Care Team Role Provider Type Edilia Galicia MD Family Provider Physician Primary Care Provider Address: [address] [place] [address], [address], [place], [address] Email: [email or web address] Maki Huntley PA-C Attending Provider Advanced Graphic Specialist Referring Provider Address: [address] [place] [address], [address], [place], [address] Email: [email or web address] Outpatient OT Outpatient Adult Evaluation Start: 08/08/23 13:12 Freq: Status: Active Protocol: Document 08/07/23 16:00 AMS (Rec: 08/08/23 13:20 AMS [id number]) General Information - Adult Visit Information Visit Number 1 Plan of Care Dates 08/07/23 - 10/02/23 Insurance Information [employer]PW; MAX 12 OT visits PCY including evaluation Session Time Visit Start Time 08:45 Visit Stop Time 09:30 Total Visit Minutes 45 Setting Treatment Setting Outpatient Care Visit Type Note Type Initial Evaluation Referral Referring Physician Maki Huntley PA-C; PCP = Edilia Galicia MD Reason for Referral L shoulder pain/discomfort Identification Identification Confirmed Yes Identification Confirmed By Self Goals Short Term Goals Short Term Goals 1. Lis will present with increased active range of motion of the left shoulder, demonstrating 150 degrees active pain-free left shoulder flexion, which will support above shoulder height/object manipulation and address stiffness reported in the shoulder. Detention Goals Detention Goals 1. Lis will be modified independent with L upper extremity home exercise program utilizing provided written and visual instructions as needed. Assessment/Plan Assessment Treatment Assessment Lis is a 37 year-old right hand dominant female referred to outpatient OT secondary to L shoulder pain/discomfort. Medical history is significant for allergies to tape, back pain (L4-L5 hernia), depression, dizziness, falls, migraines/headaches, neck fusion, neuropathy, thyroid disorder, joint hypermobility, Postural orthostatic tachycardia syndrome, arthritis. Verbal report of tremors as well. Surgical history is significant for R thyroid lobectomy, C4-C6 ACDF, bilateral inguinal hernia, R CTR, endometriosis lap, L ankle arthroscopy, R sh neuroma removal. Most recent hospital stay occurred 03/07/22 to 03/08/22. Denial of any current UE lifting restrictions. Lis reported that she has had PT in which they worked on strengthening of her neck musculature, and L shoulder rotator cuff muscles , as well as addressed TMJ (h/ o locking of jaw w/ noted clicking/crepitus). Lis also reported h/o US guided L sh corticosteroid injection ( which had no significant impact on pain level) which was provided 10/17/22 and prior imaging of the L shoulder that occurred at [facility] (in which she had her neck treatments). Lis denied currently working; [place]. She has returned to driving; she has difficulties attending to blind spots. HEP for shoulder included sidelying sleeper stretch, snow angels and sh flex at wall. L shoulder pain/discomfort presented approximately 2 years ago. Indication of 2 out of 10 on Pain Assessment Grid relative to L anterior shoulder. Cannot place any straps on top of L shoulder d/ t sliding off/pain/discomfort, including bra strap. (+) self -modification of bras for daily comfort. QuickDASH UE Outcome Measure Score = 29.54. 140 degrees active L sh flex vs 155 degrees active R sh flex; 75 degrees active L sh ER vs 90 degrees R sh ER; 55 degrees active L sh ext vs 60 degrees R sh ext. WFL bilateral sh abd; able to bring R elbow to ear; approximately 2 inches from L ear w/ active sh abd. (-) scapular winging. Good functional range of motion of L UE relative to placement of hand on top of head, back of head, lower back. Although some anterior tightness of shoulder was reported w/ placement of L hand on lower back/spine. Lis would likely benefit from outpatient OT to add to current L UE home exercise program to support range of motion and to address pain/ discomfort of the L shoulder. Rec further evaluation of shoulder, including manual muscle testing given that she denies any UE lifting restrictions. Home Exercise Program 08/08/23 = Instructed in gravity assisted sidelying L UE sh abd stretch; may need to use rolled up towel and/or thin pillow to support L UE initially and/or use heat prior to this stretch; another option may be to use cane or towel and/or begin w/ this stretch at the wall w/ L arm supported (leaning into wall). Plan Length of treatment (weeks) 8 Plan of Care Start Date 08/07/23 Plan of Care End Date 10/02/23 Treatment Frequency Once a Week Therapeutic Contents Active Range of Motion, Adaptive Equipment Education, Client Education,Functional Activities,Home Exercise Program,Joint Protection, Manual Therapy,Education, Neurodevelopment Treatment, Neuromuscular Re-Education, Self-Care,Stretching/ Flexibility Activities, Therapeutic Activities, Therapeutic Exercises, Modalities Modalities As Needed,As Prescribed Additional Types of Modalities Heat/Ice/Ultrasound Functional Wrist/Hand Scan Hand Side Sensory Assessment Sensory Profile2 OT Outpatient Muscle Testing Start: 08/20/23 08:32 Freq: Status: Active Protocol: Document 09/01/23 15:43 AMS (Rec: 09/01/23 15:53 [facility] [id number]) Shoulder Strength Shoulder Manual Muscle Testing Right Flexion 5 Normal Extension 5 Normal Abduction (C5) 5 Normal Adduction 5 Normal External Rotation 4+ Good+ Internal Rotation 5 Normal Horizontal Abduction 5 Normal Horizontal Adduction 5 Normal Left Flexion 4 Good Extension 5 Normal Abduction (C5) 4 Good Adduction 5 Normal External Rotation 5 Normal Internal Rotation 5 Normal Horizontal Abduction 4 Good Horizontal Adduction 4+ Good+ Elbow/Forearm Strength Elbow and Forearm Manual Muscle Testing Right Flexion (C6) 5 Normal Extension (C7) 5 Normal Left Flexion (C6) 5 Normal Extension (C7) 5 Normal OT Outpatient Treatment Note - Adult Start: 08/08/23 13:12 Freq: Status: Active Protocol: Document 10/08/23 09:15 AMS (Rec: 10/08/23 09:17 [facility] [id number]) OT Outpatient Adult Treatment Note Visit Information Visit Number 4/12 Plan of Care Dates 08/07/23 - 10/02/23 Insurance Information CHPW; MAX 12 OT visits [facility]Y including evaluation Setting Treatment Setting Outpatient Care Visit Type Note Type Discharge Summary - Subjective Observations Lis has not been seen in the outpatient setting by OT since 10/08/23 and OT POC 10/02/23; thus, recommend d/c from outpatient OT at this time and re- evaluate as deemed appropriate by PCP w/ receipt of new referral. - Objective Objective Measurements 08/19/23 = Current HEP includes child's pose, 'w' and 'y' doorway stretch, sh flex at wall w/ elbows slightly flexed , sleeper stretch, snow angels . Short Term Goals ALL GOALS D/C 10/08/23 1. Lis will present with increased active range of motion of the left shoulder, demonstrating 150 degrees active pain-free left shoulder flexion, which will support above shoulder height/ object manipulation and address stiffness reported in the shoulder. 2. Lis will demonstrate increased left shoulder strength: 2a. 5/5 MMT L sh flexion. 2b. 5/5 MMT L sh abduction. 2c. 5/5 MMT L sh horizontal abduction. 2d. 5/5 MMT L sh horizontal adduction. Detention Goals ALL GOALS D/C 10/08/23 1. Lis will be modified independent with L upper extremity home exercise program utilizing provided written and visual instructions as needed. - - Assessment Assessment of Improvement Lis has not been seen in the outpatient setting by OT since 10/08/23 and OT POC 10/02/23; thus, recommend d/c from outpatient OT at this time and re- evaluate as deemed appropriate by PCP w/ receipt of new referral. - Plan Therapy Recommendations Discharge from Occupational Therapy
== END 2023-10-08 14:45 | disposition home or self-care (01) ==
LOC: OT 13:30
PROVIDERS: Family Provider Family Medicine; PCP Family Medicine; Referring Provider Physician Assistant; Visit Provider Physician Assistant
DX: M25.512 Pain in left shoulder (principal); R53.1 Weakness
CPT/HCPCS: 97110; 97165

== ENCOUNTER → 2023-10-14 10:19 | Outpatient (CLI) | payer OTHER, MEDICAID, SELFPAY ==
--- NOTE | 2023-10-14 10:21 | DI.RAD.S_ITS ---
PROCEDURE: XR FOOT RT MIN 3V INDICATIONS: pain TECHNIQUE: 3 views of the foot were acquired. COMPARISON: [facility], CR, XR FOOT 2VW RT, 07/03/2017, 15:50. [facility], CR, FOOT 3V RIGHT, 11/13/2009, 13:14. FINDINGS: Bones: No fractures or dislocations. No suspicious bony lesions. There is a corticated ossicle adjacent to the tip of the fibular, likely sequelae of remote injury. Mild osteoarthritic changes at the talonavicular joint, the 1st tarsometatarsal joint and multiple interphalangeal joints. Bipartite medial sesamoid. Soft tissues: No tibiotalar joint effusion. Achilles tendon appears normal. IMPRESSION: 1. No acute bony abnormality. 2. Mild osteoarthritic changes. 3. Suspect remote injury of the fibular tip. Dictated by: Samy Salas M.D. on 10/15/2023 at 8:47 Approved by: Samy Salas M.D. on 10/15/2023 at 8:50
== END ==
PROVIDERS: Family Provider Family Medicine; PCP Family Medicine; Referring Provider Family Medicine; Visit Provider Family Medicine
DX: M79.671 Pain in right foot (principal)
CPT/HCPCS: 73630

== ENCOUNTER → 2023-11-12 10:39 | Outpatient (CLI) | payer OTHER, MEDICAID, SELFPAY ==
--- NOTE | 2023-11-12 | DI.MRI.S_ITS ---
PROCEDURE: MR LUMBAR SPINE WO CON INDICATIONS: LOW BACK PAIN TECHNIQUE: Noncontrast sagittal T1 spin echo and T2 fast echo, sagittal STIR, and T2 fast spin echo through the lumbar spine. In cases with scoliosis, additional coronal T2 fast spin echo may be performed. COMPARISON: [facility], MR, MR LUMBAR SPINE WO CON, 06/25/2022, 17:20. FINDINGS: Image quality: Excellent. Alignment and Curvature: Straightening of the normal lumbar lordosis. Bone Marrow: Marrow is of normal overall signal. No acute vertebral body compression fractures. Spinal Cord: Conus medullaris terminates at the L1 level. Visualized cord demonstrates normal signal and size. Paraspinous Soft Tissues: No paravertebral masses. T12-L1: Disc desiccation height loss. No central canal or neural foraminal stenosis. L1-L2: Normal appearance. L2-L3: Normal appearance. L3-L4: Disc desiccation. No central canal or neural foraminal stenosis. L4-L5: Disc desiccation. Broad-based central disc protrusion with associated annular tear. Stable moderate central canal stenosis. Facet arthropathy. No neural foraminal stenosis. L5-S1: No central canal or neural foraminal stenosis. IMPRESSION: Stable disc protrusion at L4-5 resulting in moderate central canal stenosis. Dictated by: Neel Grover M.D. on 11/12/2023 at 14:16 Approved by: Neel Grover M.D. on 11/12/2023 at 14:19
== END ==
PROVIDERS: Family Provider Family Medicine; PCP Family Medicine; Referring Provider Neurological Surgery; Visit Provider Neurological Surgery
DX: M47.26 Other spondylosis with radiculopathy, lumbar region; M51.16 Intervertebral disc disorders with radiculopathy, lumbar region; M48.061 Spinal stenosis, lumbar region without neurogenic claudication; R29.898 Other symptoms and signs involving the musculoskeletal system
CPT/HCPCS: 72148

== ENCOUNTER → 2023-11-16 13:15 | Outpatient (CLI) | payer OTHER, MEDICAID, SELFPAY ==
--- NOTE | 2023-11-16 | DI.MRI.S_ITS ---
PROCEDURE: MR CERVICAL SPINE WO CON INDICATIONS: Cervicalgia TECHNIQUE: Noncontrast sagittal T1 spin echo and T2 fast spin echo, sagittal STIR, foraminal oblique sagittal T2 fast spin echo, and axial gradient echo or T2 fast spin echo through the cervical spine. COMPARISON: [facility], MR, MR CERVICAL SPINE WO CON, 09/13/2022, 16:44. FINDINGS: Image quality: Excellent. Alignment and Curvature: Straightening of the normal cervical lordosis. Bone Marrow: Postsurgical changes from ACDF from C4 through C6. Spinal Cord: Visualized spinal cord has normal size and signal. No cerebellar tonsillar herniation. Paraspinous Soft Tissues: No paravertebral masses. Prevertebral soft tissues are normal in thickness. C2-C3: Normal appearance. C3-C4: Mild posterior disc osteophyte complex. No central canal stenosis. Facet and uncovertebral arthropathy. Moderate left and no right neural foraminal stenosis. Similar to prior. C4-C5: ACDF. No central canal stenosis. No neural foraminal stenosis. C5-C6: ACDF. Mild central canal stenosis. Facet and uncovertebral arthropathy. Stable mild to moderate right and moderate left neural foraminal stenosis. C6-C7: Mild posterior disc osteophyte complex. No significant central canal or neural foraminal stenosis. C7-T1: No central canal or neural foraminal stenosis. IMPRESSION: 1. Stable degenerative changes of the cervical spine status post C4 through C6 ACDF. 2. Stable mild central canal stenosis at C5-C6. 3. Stable neural foraminal stenosis, moderate on the left at C3-C4 and at C5-C6. Dictated by: Neel Grover M.D. on 11/17/2023 at 10:52 Approved by: Neel Grover M.D. on 11/17/2023 at 10:57
== END ==
PROVIDERS: Family Provider Family Medicine; PCP Family Medicine; Referring Provider Neurological Surgery; Visit Provider Neurological Surgery
DX: M47.812 Spondylosis without myelopathy or radiculopathy, cervical region (principal); M48.02 Spinal stenosis, cervical region; M54.2 Cervicalgia; Z98.1 Arthrodesis status
CPT/HCPCS: 72141

== ENCOUNTER → 2024-01-07 11:32 | Outpatient (CLI) | payer OTHER, MEDICAID, SELFPAY | PROVIDERS: Family Provider Family Medicine; PCP Family Medicine; Visit Provider Family Medicine | DX: N89.8 Other specified noninflammatory disorders of vagina (principal) | CPT/HCPCS: 81002; 87086; 87210 ==

== ENCOUNTER → 2024-01-12 17:47 | Outpatient (CLI) | payer OTHER, MEDICAID, SELFPAY ==
[2024-01-12 18:10] LABS: Bacteria Urine Occasional (0-1); Culture Indicated Urine Cult Not Indicated; RBC Urine 0-1/HPF (0-5/HPF); Squamous Epithelial Cell Urine 1-5 /HPF (0-5/HPF); Urine Volume 10mL (spun); WBC Urine 0-1/HPF (0-5/HPF)
== END ==
PROVIDERS: Family Provider Family Medicine; PCP Family Medicine; Referring Provider Family Medicine; Visit Provider Family Medicine
DX: R31.9 Hematuria, unspecified (principal)
CPT/HCPCS: 81015

== ENCOUNTER → 2024-05-31 15:21 | Outpatient (CLI) | payer OTHER, MEDICAID, SELFPAY ==
--- NOTE | 2024-05-31 15:22 | DI.US.S_ITS ---
PROCEDURE: US SOFT TISSUE HEAD AND NECK INDICATIONS: swelling right preauricular area TECHNIQUE: Real-time scanning was performed of the neck region of interest, with image documentation. COMPARISON: None. FINDINGS: Hypoechoic predominantly solid appearing mass seen adjacent and contiguous with the right parotid gland measuring 1.1 cm. No internal vascularity. IMPRESSION: Hypoechoic predominantly solid mass contiguous with the right parotid gland. Underlying neoplasm cannot be excluded and or abnormal appearing lymph node as no central fatty hilum is present. If indicated, sonographically directed fine-needle aspiration could be performed for pathologic diagnosis. Dictated by: Ephraim DIAZ Interpreted: Denisha Tracy MD on 06/01/2024 at 19:08 Approved by: Denisha Tracy M.D. on 06/02/2024 at 16:47
== END ==
PROVIDERS: Family Provider Family Medicine; PCP Family Medicine; Referring Provider Family Medicine; Visit Provider Family Medicine
DX: R22.0 Localized swelling, mass and lump, head (principal)
CPT/HCPCS: 76536

== ENCOUNTER → 2024-06-02 10:18 | Outpatient (CLI) | payer OTHER, MEDICAID, SELFPAY ==
[2024-06-05 19:36] LABS: Calprotectin, Stool 26 ug/g (0-120)
== END ==
PROVIDERS: Family Provider Family Medicine; PCP Family Medicine; Referring Provider Physician Assistant; Visit Provider Physician Assistant
DX: K58.2 Mixed irritable bowel syndrome (principal); Z83.79 Family history of other diseases of the digestive system; Z80.0 Family history of malignant neoplasm of digestive organs; R13.10 Dysphagia, unspecified; R14.0 Abdominal distension (gaseous)
CPT/HCPCS: 36415; 83993; 86231; 86258; 86364

== ENCOUNTER → 2024-06-23 13:12 | Outpatient (CLI) | payer OTHER, MEDICAID, SELFPAY ==
--- NOTE | 2024-06-23 13:13 | DI.US.S_ITS ---
PROCEDURE: US FINE NEEDLE ASPIRATION INDICATIONS: follow up neck mass TECHNIQUE: The indications, alternatives, benefits, risks, and complications of the procedure were explained to the patient. Written informed consent was obtained and placed in the chart. The area of interest was examined sonographically and a site was chosen for ultrasound guided percutaneous sampling. The skin was prepared and draped in the usual fashion, and anesthetized with 1% lidocaine infiltrated from the skin down to the lesion. Multiple passes were then performed, with contents emptied into an appropriate pathology specimen container. A bandage was applied to the area of access at completion of the study. COMPARISON: [facility], US FINE NEEDLE ASPIRATION, 02/12/2023, 14:41. FINDINGS: Location(s) of lesion(s) sampled: Right parotid gland [place]: 25 gauge hypodermic needles. Number of passes: 6 Medications: 1% lidocaine for local anaesthesia. Complications: None. IMPRESSION: Successful ultrasound-guided right parotid gland fine needle aspiration, with cytology results pending. Dictated by: Denisha Tracy M.D. on 06/23/2024 at 17:19 Approved by: Denisha Tracy M.D. on 06/23/2024 at 17:19
--- NOTE | 2024-06-23 14:11 | PATH_ITS ---
Note [facility] Accession Number: [id number] TESTS RESULT FLAG UNITS REF RANGE LAB Clinician Provided Cytology Information No. of containers..01 Other (Miscellaneous) Source: RIGHT PAROTID MASS DIAGNOSIS: RIGHT PAROTID MASS, FINE NEEDLE ASPIRATION. NEGATIVE FOR MALIGNANT CELLS. FEW MATURE, SMALL LYMPHOCYTES ARE PRESENT, SEE COMMENT. COMMENT: THE FINDINGS SUGGEST SPARSE SAMPLING OF A HENRY/INTRAPAROTID LYMPH NODE. HOWEVER, SINCE THIS IS A HYPOCELLULAR ASPIRATE, CLINICAL AND RADIOLOGIC CORRELATION WILL BE REQUIRED TO ENSURE THAT THE AREA OF INTEREST IS SAMPLED. Pathologist ICD10: 01 R22.1 Signed out by: Marilu Laboy MD, Pathologist NPI- [id number] Performed by: Sinan Amezquita, Web Press Operator ([facility]) Gross description: 25 CC, COLORLESS, CLEAR RECIEVED: IN CYTOLYT WITH BLUE CAP CONTAINER.VO /VDU 06/25/2024 0946 Local FLAG LEGEND: L-Low Normal,H-High Normal,LL-Alert Low,HH-Alert High <-Panic Low,>-Panic High,A-Abnormal,AA-Critical Abnormal Performed at: [address] [facility] [address], [place] [address] Terell Rainey MD, Specimen Comment: A courtesy copy of this report has been sent to [phone] Specimen Comment: A duplicate report has been generated due to demographic updates. Performed at: [facility] [address] [address], [place], [place] [id number] MD Terell Rainey MD Phone: [phone]
== END ==
LOC: US 13:13
PROVIDERS: Family Provider Family Medicine; PCP Family Medicine; Referring Provider Family Medicine; Visit Provider Family Medicine
DX: R22.1 Localized swelling, mass and lump, neck (principal); K11.9 Disease of salivary gland, unspecified
CPT/HCPCS: 10005

== ENCOUNTER → 2024-10-16 07:24 | Outpatient (CLI) | payer OTHER, SELFPAY | PROVIDERS: Family Provider Family Medicine; PCP Family Medicine; Referring Provider Nurse Practitioner Family; Visit Provider Nurse Practitioner Family | DX: R30.0 Dysuria (principal); N94.9 Unspecified condition associated with female genital organs and menstrual cycle | CPT/HCPCS: 87086; 87210 ==

== ENCOUNTER → 2024-11-10 15:50 | Outpatient (CLI) | payer OTHER, SELFPAY ==
[2024-11-10 16:52] LABS: Cholesterol 255 mg/dL (140-199); HDL Cholesterol 52 mg/dL (40-60); LDL Cholesterol Calculated 164 mg/dL (<100); Triglycerides 196 mg/dL (35-150)
[2024-11-10 17:24] LABS: Thyroid Stimulating Hormone 3.39 uIU/mL (0.47-4.68)
== END ==
PROVIDERS: Family Provider Family Medicine; PCP Family Medicine; Referring Provider Family Medicine; Visit Provider Family Medicine
DX: E03.9 Hypothyroidism, unspecified (principal); E66.9 Obesity, unspecified; E78.5 Hyperlipidemia, unspecified
CPT/HCPCS: 36415; 80061; 83036; 84443

== ENCOUNTER → 2024-11-19 07:42 | Outpatient (CLI) | payer OTHER, SELFPAY ==
--- NOTE | 2024-11-19 07:43 | DI.MRI.S_ITS ---
PROCEDURE: MR CERVICAL SPINE WO CON INDICATIONS: extremity weakness TECHNIQUE: Noncontrast sagittal T1 spin echo and T2 fast spin echo, sagittal STIR, foraminal oblique sagittal T2 fast spin echo, and axial gradient echo or T2 fast spin echo through the cervical spine. COMPARISON: [facility], MR, MR CERVICAL SPINE WO CON, 11/16/2023, 13:25. FINDINGS: Image quality: Excellent. Alignment and Curvature: Straightening of the normal cervical lordosis. Bone Marrow: Status post C4 through C6 ACDF. Spinal Cord: Visualized spinal cord has normal size and signal. No cerebellar tonsillar herniation. Paraspinous Soft Tissues: No paravertebral masses. Prevertebral soft tissues are normal in thickness. C2-C3: Normal appearance. C3-C4: Disc desiccation and mild posterior disc osteophyte complex. No significant central canal stenosis. Facet and uncovertebral arthropathy. Moderate left and no right neural foraminal stenosis is similar to prior. C4-C5: ACDF. No central canal stenosis. No neural foraminal stenosis. C5-C6: ACDF. Mild central canal stenosis. Facet and uncovertebral arthropathy. Stable mild to moderate right and moderate left neural foraminal stenosis. C6-C7: Disc desiccation and mild posterior disc osteophyte complex. No significant central canal or neural foraminal stenosis. C7-T1: Disc desiccation and mild posterior disc osteophyte complex. No significant central canal or neural foraminal stenosis. IMPRESSION: 1. Stable degenerative changes of the cervical spine status post C4 through C6 ACDF. 2. Stable mild central canal stenosis at C5-C6. 3. Moderate neural foraminal stenosis on the left at C3-C4 and C5-C6 is stable. Approved by: Neel Grover M.D. on 11/19/2024 at 14:49
--- NOTE | 2024-11-19 07:43 | DI.MRI.S_ITS ---
PROCEDURE: MR THORACIC SPINE WO CON INDICATIONS: extremity weakness TECHNIQUE: Noncontrast sagittal T1 spine echo and T2 fast spin echo, sagittal STIR, and T2 fast spin echo through the thoracic spine. COMPARISON: None. FINDINGS: Image quality: Excellent. Alignment and Curvature: There is normal bony alignment. Bone Marrow: Marrow is of normal overall signal. Several small vertebral body hemangiomas are noted. No acute vertebral body compression fractures. Spinal Cord: Visualized spinal cord is normal in size and signal. Paraspinous Soft Tissues: No paravertebral masses. Miscellaneous: Multilevel disc desiccation and mild height loss. Mild posterior disc bulges at several levels. On axial images, central canal and foramina appear widely patent at all scanned levels. IMPRESSION: Mild multilevel degenerative changes of the thoracic spine without central canal or neural foraminal stenosis. Approved by: Neel Grover M.D. on 11/19/2024 at 14:52
--- NOTE | 2024-11-19 07:43 | DI.MRI.S_ITS ---
PROCEDURE: MR LUMBAR SPINE WO CON INDICATIONS: extremity weakness TECHNIQUE: Noncontrast sagittal T1 spin echo and T2 fast echo, sagittal STIR, and T2 fast spin echo through the lumbar spine. In cases with scoliosis, additional coronal T2 fast spin echo may be performed. COMPARISON: [facility], MR, MR LUMBAR SPINE WO CON, 11/12/2023, 10:55. FINDINGS: Image quality: Excellent. Alignment and Curvature: Straightening of the normal lumbar lordosis. Bone Marrow: Marrow is of normal overall signal. No acute vertebral body compression fractures. Spinal Cord: Conus medullaris terminates at the T12-L1 level. Visualized cord demonstrates normal signal and size. Paraspinous Soft Tissues: No paravertebral masses. T12-L1: Disc desiccation height loss. No central canal or neural foraminal stenosis. L1-L2: No central canal or neural foraminal stenosis. L2-L3: No central canal or neural foraminal stenosis. L3-L4: Disc desiccation. Mild facet arthropathy. No significant central canal or neural foraminal stenosis. L4-L5: Disc desiccation and mild height loss. Diffuse disc bulge with superimposed central disc protrusion and associated annular tear. Stable moderate central canal stenosis. No significant neural foraminal stenosis. L5-S1: Facet arthropathy. No central canal or neural foraminal stenosis. IMPRESSION: Stable focal degenerative changes at L4-5 resulting in moderate central canal stenosis. Approved by: Neel Grover M.D. on 11/19/2024 at 14:56
== END ==
PROVIDERS: Family Provider Family Medicine; PCP Family Medicine; Referring Provider Family Medicine; Visit Provider Family Medicine
DX: M47.812 Spondylosis without myelopathy or radiculopathy, cervical region (principal); M48.02 Spinal stenosis, cervical region; M47.814 Spondylosis without myelopathy or radiculopathy, thoracic region; M47.816 Spondylosis without myelopathy or radiculopathy, lumbar region; M47.817 Spondylosis without myelopathy or radiculopathy, lumbosacral region; M48.061 Spinal stenosis, lumbar region without neurogenic claudication; R29.898 Other symptoms and signs involving the musculoskeletal system; Z98.1 Arthrodesis status
CPT/HCPCS: 72141; 72146; 72148

== ENCOUNTER → 2025-03-03 15:28 | Outpatient (CLI) | payer OTHER, SELFPAY ==
--- NOTE | 2025-03-03 15:29 | DI.US.S_ITS ---
PROCEDURE: US THYROID INDICATIONS: 6 MO F/U TECHNIQUE: Real-time scanning was performed of the thyroid gland, with image documentation. COMPARISON: [facility], US, US FINE NEEDLE ASPIRATION, 07/21/2024, 13:54. [facility], US, US FINE NEEDLE ASPIRATION, 06/23/2024, 13:22. [facility], US, US SOFT TISSUE HEAD AND NECK, 05/31/2024, 15:29. MR, MR CERVICAL SPINE WO CON, 11/16/2023, 13:25. [facility], US, US THYROID, 01/17/2023, 10:43. FINDINGS: Thyroid: Right thyroidectomy is present. Within the right thyroid fossa no areas of abnormal mass are identified. Left thyroid lobe measures 4.1 x 1.2 x 1.3 cm. Right parotid mass measures 10 x 8 x 8 mm. There is no increased vascularity. It appears overall unchanged compared to prior exam. IMPRESSION: Right thyroidectomy without abnormal masses in the thyroid bed. No nodules within the left thyroid lobe. Unchanged appearance of right parotid. Dictated by: Denisha Tracy M.D. on 03/06/2025 at 19:41 Approved by: Denisha Tracy M.D. on 03/06/2025 at 19:43
== END ==
PROVIDERS: Family Provider Family Medicine; PCP Family Medicine; Referring Provider Family Medicine; Visit Provider Family Medicine
DX: E03.8 Other specified hypothyroidism (principal); E04.1 Nontoxic single thyroid nodule
CPT/HCPCS: 76536

== ENCOUNTER 2025-04-22 15:03 | Emergency (ER) | payer OTHER, SELFPAY ==
[2025-04-22 15:15] VITALS: BP 157/87; PULSE 90; RESP 16; TEMP 36.7; O2SAT 99; BMI 33.6
--- NOTE | 2025-04-22 16:10 | DI.RAD.S_ITS ---
PROCEDURE: XR CERVICAL SPINE 2V OR 3V INDICATIONS: L arm radiculopathy TECHNIQUE: 3 view(s) of the cervical spine were acquired. COMPARISON: [facility], , XR CERVICAL SPINE 4V OR 5V, 02/25/2023, 22:05. FINDINGS: Bones: Anterior cervical fixation hardware noted at C4-C6 with interbody spacers. No fractures or dislocations to the T1 level. The lateral masses of C1 appear intact on the odontoid view. No suspicious bony lesions. Soft tissues: No prevertebral soft tissue swelling. IMPRESSION: No displaced fracture or traumatic subluxation. Dictated by: Terell Horne M.D. on 04/22/2025 at 16:39 Approved by: Terell Horne M.D. on 04/22/2025 at 16:40
--- NOTE | 2025-04-22 16:10 | DI.RAD.S_ITS ---
PROCEDURE: XR SHOULDER LT MIN 2V INDICATIONS: left shoulder pain rad down arm, heard pop TECHNIQUE: 3 views of the shoulder were acquired. COMPARISON: [facility], [facility], XR SHOULDER LT MIN 2V, 09/13/2021, 17:16. FINDINGS: Bones: No fractures or dislocations. No suspicious bony lesions. Visualized ribs appear intact. Soft tissues: No suspicious soft tissue calcifications. IMPRESSION: No acute bony abnormality is seen on x-ray. If clinically indicated, consider MRI of the left shoulder for better soft tissue characterization. Dictated by: Terell Horne M.D. on 04/22/2025 at 16:40 Approved by: Terell Horne M.D. on 04/22/2025 at 16:42
--- NOTE | 2025-04-22 18:02 | ED_ITS ---
<Statement entered by Dannie Lyons, DO - 04/23/25 03:07> Co-sign statement: I was available for consultation during this patient's emergency department visit. This chart is being signed by myself for administrative purposes only. I do not have direct contact with this patient during this visit. They were seen independently by the APC. HPI - Extremity Problem General Chief complaint: Extremity Problem,Nontraumatic Stated complaint: Lt shoulder pain/nerve pain Time Seen by Provider: 04/22/25 16:10 Source: patient Mode of arrival: Ambulatory History of Present Illness HPI Narrative: Ms. Dowling is a pleasant 39-year-old female with a past medical history of cervical myelopathy s/p fusion, chronic pain, hypothyroidism, POTS, ADHD who presents to the emergency department for left shoulder pain radiating down the left arm x 2 days. Patient denies any injury but states that she was doing gentle yd work the day before her symptoms began. When she woke up yesterday morning she felt a pop in her neck/shoulder region and has been experiencing left scapular pain radiating down the lateral aspect of the left arm since then. Describes the pain as a tingling paresthesia type sensation. She has focal pain on the posterior left scapula region. There is a clicking sensation with movement of the left shoulder. She has no midline cervical spinal pain but she does have left-sided cervical pain as well. Pain improved oxycodone Flexeril that she had at home from previous pain. She is concerned about a possible herniated disc or nerve compression. No direct trauma, fevers, or changes in range of motion. She is here with her mom. Related Data Home Medications ?Medication ?Instructions ?Recorded ?Confirmed cyclosporine 0.05 % eye drops in a EYE-BOTH 12/24/18 0 01/25/25 dropperette (Restasis) fluticasone propionate 50 1 spray intranasal DAILY PRN 05/21/19 01/25/25 mcg/actuation nasal spray,suspension (Flonase Allergy Relief) loratadine 10 mg tablet (Claritin) 10 mg PO DAILY PRN allergy symptoms 08/24/20 01/25/25 omeprazole 20 mg tablet,delayed 20 mg PO DAILY 2 01/25/25 release cholecalciferol (vitamin D3) 50 50 mcg PO DAILY 01/25/25 mcg (2,000 unit) capsule mecobalamin (vitamin B12) 1,000 1,000 mcg PO DAILY 08/0401/25/25 mcg lozenges omega 3-fre-coz-fish oil 100 cap PO 07/22/23 01/25/25 mg-160 mg-1,000 mg capsule (Fish Oil) amoxicillin 500 mg capsule 500 mg PO BID 01/25/2501/11 Previous Rx's ?Medication ?Instructions ?Recorded dextroamphetamine-amphetamine ER 10 mg PO QAM #30 caps 04/26/20 10 mg 24hr capsule,extend release (Adderall XR) Disabled Parking Permit #1 ea 05/11/24 dicyclomine 10 mg capsule 10 mg PO DAILY PRN for abdom inal 05/25/24 pain #90 caps norethindrone acetate 1.5 1 tab PO DAILY #63 tabs 09/12 11/05 mg-ethinyl estradiol 30 mcg tablet (Alana) zolpidem 5 mg tablet 5 mg PO BEDTIME #10 tabs benzonatate 100 mg capsule 100 mg PO TID PRN cough #30 caps 01/25/25 levothyroxine 25 mcg tablet 25 mcg PO DAILY #30 tabs 0 01/25/25 azithromycin 250 mg tablet See Rx Instructions PO .COM PLEX #6 01/27/25 tabs cyclobenzaprine 5 mg tablet 5 mg PO TID PRN muscle spa sm #20 04/22/25 tabs lidocaine 5 % topical patch 1 patch topical DAILY #30 ea 04/22/25 (Lidoderm) oxycodone-acetaminophen 5 mg-325 1 tab PO Q4-6H PRN pa in #12 tabs 04/22/25 mg tablet prednisone 20 mg tablet 40 mg (2 x 20 mg) PO DAILY 5 days 04/22/25 #10 tabs Allergies Allergy/AdvReac Type Severity Reaction Status Date / Time adhesive Allergy Severe Rash and Verified 04/22/25 15:21 swelling at site nortriptyline AdvReac Severe depression, Verified 04/22/25 15:21 suicidal thoughts Review of Systems Review of Systems ROS Unobtainable: All systems reviewed & are unremarkable except as noted in HPI and below Patient History Medical History Thyroid nodule Nodulocystic acne Tremor ADHD (attention deficit hyperactivity disorder) Depression Anxiety History of TMJ disorder Ankle arthritis Ankle pain Fibrocystic breast disease Endometriosis IBS (irritable bowel syndrome) Hypothyroidism Surgical History History of colonoscopy History of bilateral inguinal hernia repair (04/17/16) History of laparoscopy (2010) History of carpal tunnel release (2008) History of ankle surgery (2005) History of excision of lesion History of third molar tooth extraction Family History Father Hypertension Colon polyps Mother Family history of heart disease Grandmother Stroke Grandfather Stroke Cancer Social History alcohol intake: never substance use type: does not use Exam Narrative Exam Narrative: GENERAL: 39 year old patient appears stated age. Well-developed patient, in no acute distress. HEAD: Atraumatic. Normocephalic. EYES: No scleral icterus. No injection or drainage. NECK: Trachea midline. Cervical ROM intact. No midline cervical tenderness. There is tenderness to palpation of the left paraspinal muscle region and the superior trapezius muscle region with reproducible spasm. CARDIOVASCULAR: Regular rate and rhythm. RESPIRATORY: ?Nonlabored respirations. ?Speaking in clear, full sentences. ?Clear to auscultation. Breath sounds equal bilaterally. No wheezes, rales, or rhonchi. ? EXTREMITIES: Focal tenderness to palpation of left scapular region and there is palpable clicking with range of motion of the left shoulder. Left shoulder abduction, adduction, flexion, extension, internal external range of motion intact but with discomfort. Negative empty can test bilaterally. Strong radial pulse, sensation intact to light touch and strength intact in the distribution of median, ulnar, radial nerves however there is subjective paresthesias along the C8 region. NEURO: AOx3. ?Clear speech. ?Moves all 4 extremities appropriately. SKIN: No rash or erythema of visible areas Initial Vital Signs Initial Vital Signs: Vital Signs Temperature 98.0 F 04/22/25 15:15 Pulse Rate 90 04/22/25 15:15 Respiratory Rate 16 04/22/25 15:15 Blood Pressure 157/87 H 04/22/25 15:15 Pulse Oximetry 99 04/22/25 15:15 Oxygen Delivery Method Room Air 04/22/25 15:15 Course Orders Ordered: ED Orders 04/22/25 16:10 XR cervical spine 2V or 3V Stat XR shoulder LT 2+ views Stat Discontinued Medications Cyclobenzaprine HCl (Cyclobenzaprine 10 Mg Tablet) 5 mg PO NOW ONE Stop: 04/22/25 18:34 Last Admin: 04/22/25 18:51 Dose: 5 mg Documented By: SARAHI Ketorolac Tromethamine (Ketorolac 30 Mg/Ml Vial) 30 mg IM NOW ONE Stop: 04/22/25 18:34 Last Admin: 04/22/25 18:51 Dose: 30 mg Documented By: SRAAHI Lidocaine (Lidocaine 5% Patch) 1 each TOP NOW ONE Stop: 04/22/25 18:34 Last Admin: 04/22/25 18:52 Dose: 1 each Documented By: SARAHI Oxycodone/Acetaminophen (Oxycodone/Apap 5/325 Prepack) 1 bottle MISC DIRECTED ONE Stop: 04/22/25 18:34 Last Admin: 04/22/25 18:52 Dose: 1 bottle Documented By: SARAHI Prednisone (Prednisone 20 Mg Tablet) 40 mg PO NOW ONE Stop: 04/22/25 18:34 Last Admin: 04/22/25 18:52 Dose: 40 mg Documented By: SARAHI Vital Signs Vital signs: Vital Signs - 8 hr 04/22/25 15:15 Temperature 98.0 F Pulse Rate 90 Respiratory Rate 16 Blood Pressure 157/87 H Pulse Oximetry 99 Oxygen Delivery Method Room Air MDM - Extremity (Nontraumatic) Medical Records Attestation: I reviewed the patient's medical records. Imaging Data Cervical Spine XR: Radiologist's Impression: PROCEDURE: XR CERVICAL SPINE 2V OR 3V INDICATIONS: L arm radiculopathy TECHNIQUE: 3 view(s) of the cervical spine were acquired. COMPARISON: [facility], CR, XR CERVICAL SPINE 4V OR 5V, 02/25/2023, 22:05. FINDINGS: Bones: Anterior cervical fixation hardware noted at C4-C6 with interbody spacers. No fractures or dislocations to the T1 level. The lateral masses of C1 appear intact on the odontoid view. No suspicious bony lesions. Soft tissues: No prevertebral soft tissue swelling. IMPRESSION: No displaced fracture or traumatic subluxation. Dictated by: Terell Horne M.D. on 04/22/2025 at 16:39 Approved by: Terell Horne M.D. on 04/22/2025 at 16:40 Left Shoulder XR: Radiologist's Impression: PROCEDURE: XR SHOULDER LT MIN 2V INDICATIONS: left shoulder pain rad down arm, heard pop TECHNIQUE: 3 views of the shoulder were acquired. COMPARISON: [facility], CR, XR SHOULDER LT MIN 2V, 09/13/2021, 17:16. FINDINGS: Bones: No fractures or dislocations. No suspicious bony lesions. Visualized ribs appear intact. Soft tissues: No suspicious soft tissue calcifications. IMPRESSION: No acute bony abnormality is seen on x-ray. If clinically indicated, consider MRI of the left shoulder for better soft tissue characterization. Dictated by: Terell Horne M.D. on 04/22/2025 at 16:40 Approved by: Terell Horne M.D. on 04/22/2025 at 16:42 MDM Narrative Medical decision making narrative: 39-year-old female with a past medical history of cervical myelopathy s/p fusion, chronic pain, hypothyroidism, POTS, ADHD who presents to the emergency department for left shoulder pain radiating down the left arm x 2 days. Differential diagnosis includes but is not limited to cervical radiculopathy, intervertebral herniated disc, spinal stenosis, hardware failure, fracture, sprain, strain, dislocation, muscle spasm, rotator cuff injury, etc. On exam patient is in no acute distress, nontoxic appearing, vital signs appropriate. Her left upper extremity is neurovascularly intact and her shoulder range of motion is intact however she does have focal left scapular pain that radiates down the C8 nerve distribution, and left-sided trapezius muscle spasm. Cervical and left shoulder x-rays obtained reveal no acute abnormality. Patient's symptoms are consistent with cervical radiculopathy however she is also experiencing palpable clicking and pain in the left scapular region, I did recommend that she follow up with the orthopedic surgeon for further imaging and management. Provided her with ortho spine at [facility] phone number. After shared decision-making with the patient, she was treated in the ED with prednisone, Toradol, oxycodone, Lidoderm and Flexeril. Oxycodone, Flexeril, Lidoderm and prednisone prescribed for home, also recommended taking acetaminophen and ibuprofen. Discussed risks of narcotic pain medications. Advised to follow up with PCP in addition to ortho. Patient verbalized understanding of all information is agreeable with the plan. She is stable for discharge home, symptoms improved. Discharge Plan Departure Patient Disposition: Home Clinical Impression: Acute pain of left shoulder, Cervical radiculopathy, Spasm of left trapezius muscle Instructions: DI for Cervical Radiculopathy, DI for Shoulder Pain Activity Restrictions/Additional Instructions: Dear Ms. Dowling, Thank you for coming to the emergency department. Today you were evaluated for pain radiating down the left arm. X-ray of your left shoulder and cervical spine were obtained revealing no acute abnormality or hardware failure. At this time I am concerned her symptoms are both related to cervical radiculopathy in addition to underlying shoulder problem. I would like you to rest, use prescription medications, in addition to gentle stretching and heat therapy on the back of the neck/shoulder blade. You have been prescribed oxycodone-acetaminophen which is a pain medication, prednisone which is a steroid, cyclobenzaprine which is a muscle relaxer and Lidoderm which is a topical lidocaine patch. I would also like you to use ibuprofen and Tylenol for pain with these medications. Please take Ibuprofen (Motrin/Advil) or Acetaminophen (Tylenol) for pain. These are available over the counter. You may take Ibuprofen 600 mg every 8 hours with food for pain. You may also take Acetaminophen 650 mg every 4-6 hours for pain. Do not exceed 3000 mg of Tylenol a day as this can cause liver damage. Do not drink alcohol with either of these medications. I would like you to follow up with an orthopedic surgeon for further management of your neck and shoulder pain. Your primary care doctor or Orthopedics may order more advanced imaging for further diagnosis. Here at [facility] we do not have a spine surgeon with the closest spine surgeon is Dr. Trey Del Rio with [facility], his office number is [phone] at [address] [place] [id number]. Please follow up with your primary care doctor within the next 2-3 days for ER follow-up. (If you do not have a PCP you can call [phone]. ?to schedule an appointment with an [facility] Primary Care Provider) IF YOU DEVELOP ANY NEW OR WORSENING SYMPTOMS, RETURN TO THE ER! Please read the attached instructions, they highlight more specific treatments and interventions for you at home. Thank you for letting me participate in your care, Samanta Keane PA-C Prescriptions: New prednisone 20 mg tablet 40 mg PO DAILY 5 Days Qty: 10 0RF oxycodone-acetaminophen 5-325 mg tablet 1 tab PO Q4-6H PRN (Reason: pain) Qty: 12 0RF lidocaine [Lidoderm] 5 % adhesive patch,medicated 1 patch topical DAILY Qty: 30 0RF Rx Instructions: leave on most painful area for up to 12 hrs cyclobenzaprine 5 mg tablet 5 mg PO TID PRN (Reason: muscle spasm) Qty: 20 0RF No Action omeprazole 20 mg tablet,delayed release (DR/EC) 20 mg PO DAILY mecobalamin (vitamin B12) 1,000 mcg lozenge 1,000 mcg PO DAILY Rx Instructions: allow to dissolve in mouth OR may chew lightly before swallowing cholecalciferol (vitamin D3) 50 mcg (2,000 unit) capsule 50 mcg PO DAILY Fish Oil 100-160-1,000 mg capsule PO amoxicillin 500 mg capsule 500 mg PO BID levothyroxine 25 mcg tablet 25 mcg PO DAILY Qty: 30 3RF benzonatate 100 mg capsule 100 mg PO TID PRN (Reason: cough) Qty: 30 0RF dextroamphetamine-amphetamine [Adderall XR] 10 mg capsule,extended release 24hr 10 mg PO QAM Qty: 30 0RF (DME) Disabled Parking Permit See Rx Instructions .ROUTE .MEDSUPPLY Qty: 1 0RF Rx Instructions: I find this person to be disabled dicyclomine 10 mg capsule 10 mg PO DAILY PRN (Reason: for abdominal pain) Qty: 90 0RF norethindrone ac-eth estradiol [Alana 1.5 (21)] 1.5-30 mg-mcg tablet 1 tab PO DAILY Qty: 63 3RF zolpidem 5 mg tablet 5 mg PO BEDTIME Qty: 10 0RF azithromycin 250 mg tablet See Rx Instructions PO .COMPLEX Qty: 6 0RF Rx Instructions: For 250 mg dose pack: take 500 mg today (day 1), then 250 mg for 4 days (days 2-5) PO Restasis 0.05 % dropperette EYE-BOTH fluticasone propionate [Flonase Allergy Relief] 50 mcg/actuation spray,suspension 1 spray NASAL DAILY PRN loratadine [Claritin] 10 mg tablet 10 mg PO DAILY PRN (Reason: allergy symptoms) Referrals: Edilia Galicia MD [Primary Care Provider, Family Practice] Stand Alone Forms: Patient Portal/API
[2025-04-22] MEDS: CYCLOBENZAPRINE 10 MG TABLET 5 MG PO (18:51)
[2025-04-22] MEDS: KETOROLAC 30 MG/ML VIAL IM (18:51)
[2025-04-22] MEDS: LIDOCAINE 5% PATCH 1 EACH TOP (18:52)
[2025-04-22] MEDS: OXYCODONE/APAP 5/325 PREPACK 1 BOTTLE MISC (18:52)
[2025-04-22 19:30] VITALS: BP 124/79; PULSE 87; RESP 14; O2SAT 97
== END 2025-04-22 19:32 | disposition home or self-care (01) ==
PROVIDERS: Emergency Provider Physician Assistant; Family Provider Family Medicine; PCP Family Medicine
DX: M25.512 Pain in left shoulder (principal); M54.12 Radiculopathy, cervical region; M62.838 Other muscle spasm; Z98.1 Arthrodesis status
CPT/HCPCS: 72040; 73030; 96372; 99283; J1885

== ENCOUNTER → 2025-04-26 15:58 | Outpatient (CLI) | payer OTHER, SELFPAY ==
[2025-04-26 18:03] LABS: Free T3, Triiodothyronine Free 2.46 pg/mL (2.77-5.27); Free T4, Direct Thyroxine 0.82 ng/dL (0.78-2.19)
[2025-04-26 18:17] LABS: Thyroid Stimulating Hormone 0.491 uIU/mL (0.47-4.68)
[2025-04-26 18:21] LABS: Follicle Stimulating Hormone 1.74 mIU/mL
== END ==
PROVIDERS: Family Provider Family Medicine; PCP Family Medicine; Visit Provider Internal Medicine Endocrinology, Diabetes & Metabolism
DX: E03.9 Hypothyroidism, unspecified (principal); E04.1 Nontoxic single thyroid nodule
CPT/HCPCS: 36415; 83001; 84439; 84443; 84481

== ENCOUNTER → 2025-05-05 11:40 | Outpatient (CLI) | payer OTHER, SELFPAY ==
--- NOTE | 2025-05-05 11:41 | DI.MRI.S_ITS ---
PROCEDURE: MR CERVICAL SPINE WO CON INDICATIONS: left arm weakness, pain TECHNIQUE: Noncontrast sagittal T1 spin echo and T2 fast spin echo, sagittal STIR, foraminal oblique sagittal T2 fast spin echo, and axial gradient echo or T2 fast spin echo through the cervical spine. COMPARISON: [facility], MR, MR CERVICAL SPINE WO CON, 11/19/2024, 7:58. FINDINGS: Image quality: Excellent. Alignment and Curvature: There is normal bony alignment. Bone Marrow: Status post anterior cervical disc fusion from C4 through C6, similar to prior imaging. Spinal Cord: Visualized spinal cord has normal size and signal. No cerebellar tonsillar herniation. Paraspinous Soft Tissues: No paravertebral masses. Prevertebral soft tissues are normal in thickness. The combination of disc bulging with endplate spurring and facet arthropathy result in the following: C2-C3: Normal appearance. C3-C4: Mild right and moderate left foraminal stenosis without central canal stenosis. C4-C5: Anterior fusion. No central canal or foraminal stenosis. C5-C6: Anterior fusion. Mild bilateral foraminal stenosis. C6-C7: Anterior fusion. No central canal or foraminal stenosis. C7-T1: Normal appearance. IMPRESSION: Anterior cervical disc fusion hardware remains in place from C3 through C6 with mild cervical spondylosis not significantly changed since 11/19/2024. Dictated by: Cathleen Mas M.D. on 05/05/2025 at 14:42 Approved by: Cathleen Mas M.D. on 05/05/2025 at 14:47
== END ==
PROVIDERS: Family Provider Family Medicine; PCP Family Medicine; Referring Provider Family Medicine; Visit Provider Family Medicine
DX: M47.812 Spondylosis without myelopathy or radiculopathy, cervical region (principal); M48.02 Spinal stenosis, cervical region; R29.898 Other symptoms and signs involving the musculoskeletal system; Z98.1 Arthrodesis status
CPT/HCPCS: 72141

== ENCOUNTER → 2025-05-11 11:53 | Outpatient (CLI) | payer OTHER, SELFPAY | LOC: LAB 11:54 | PROVIDERS: Family Provider Family Medicine; PCP Family Medicine; Referring Provider Internal Medicine; Visit Provider Internal Medicine | DX: M79.602 Pain in left arm (principal) | CPT/HCPCS: 36415; 85651; 86140 ==

== ENCOUNTER → 2025-07-06 14:38 | Outpatient (CLI) | payer OTHER, SELFPAY ==
[2025-07-08 13:10] LABS: Trichomoas vaginalis Negative (Negative)
== END ==
LOC: LAB 14:40
PROVIDERS: Family Provider Family Medicine; PCP Family Medicine; Visit Provider Obstetrics & Gynecology
DX: N89.8 Other specified noninflammatory disorders of vagina (principal)
CPT/HCPCS: 81514

== ENCOUNTER → 2025-08-15 13:43 | Outpatient (CLI) | payer OTHER, SELFPAY ==
--- NOTE | 2025-08-15 13:44 | DI.MRI.S_ITS ---
PROCEDURE: MR HEAD/BRAIN WO/W CON INDICATIONS: headache/ vision changes TECHNIQUE: Noncontrast axial T1 spin echo, axial T2 fast spin echo, sagittal and axial FLAIR, coronal T2 fast spin echo, axial gradient echo, axial diffusion and ADC through the brain. After the administration of contrast, axial and coronal and sagittal 3D VIBE or T1 spin echo with fat saturation through the brain. COMPARISON: None. FINDINGS: CSF Spaces: Basal cisterns are patent. No extra-axial fluid collections. Ventricles are normal in size and shape. Brain: No midline shift. No intracranial bleeds or masses. No abnormal intracranial enhancement. The brainstem appears normal. Diffusion-weighted images demonstrate no acute infarct. No chronic ischemic insults. Normal intravascular flow voids are present. Skull and face: Calvarial marrow is normal in signal. Orbits appear normal. Sinuses: Sinuses and mastoids appear clear. IMPRESSION: Unremarkable MR brain with and without contrast Approved by: Jemal Tillman M.D. on 08/15/2025 at 15:15
== END ==
LOC: MRI 13:44
PROVIDERS: Family Provider Family Medicine; PCP Family Medicine; Referring Provider Family Medicine; Visit Provider Family Medicine
DX: R51.9 Headache, unspecified (principal); H53.9 Unspecified visual disturbance
CPT/HCPCS: 70553; A9579

== ENCOUNTER → 2025-09-14 10:41 | Outpatient (CLI) | payer OTHER, SELFPAY ==
[2025-09-14 11:17] LABS: Add Manual Diff / Slide Review NO; Hematocrit 40.7 % (36-46); Hemoglobin 13.8 g/dL (12.0-16.0); Lymphocytes Absolute Auto 2900 /uL (1100-4500); Mean Corpuscular HGB Conc 33.8 % (30-36); Mean Corpuscular Hemoglobin 29.2 PG (26-34); Mean Corpuscular Volume 86.3 fL (80-100); Platelet Count 269 X10^3/uL (150-400)
[2025-09-14 12:07] LABS: Thyroid Stimulating Hormone 3.16 uIU/mL (0.47-4.68)
== END ==
PROVIDERS: Family Provider Family Medicine; PCP Family Medicine; Referring Provider Family Medicine; Visit Provider Family Medicine
DX: R59.9 Enlarged lymph nodes, unspecified (principal); E03.9 Hypothyroidism, unspecified
CPT/HCPCS: 36415; 84443; 85025

== ENCOUNTER → 2025-10-03 10:28 | Outpatient (CLI) | payer OTHER, SELFPAY ==
--- NOTE | 2025-10-03 10:29 | DI.RAD.S_ITS ---
PROCEDURE: XR WRIST RT MIN 3V INDICATIONS: right wrist pain TECHNIQUE: 4 views of the wrist were acquired. COMPARISON: None. FINDINGS: Bones: No acute fracture or dislocation. Joint spaces are well maintained. Soft tissues: No suspicious soft tissue calcifications. IMPRESSION: No acute bony abnormality. Dictated by: Krystle Minor M.D. on 10/03/2025 at 15:02 Approved by: Krystle Minor M.D. on 10/03/2025 at 15:03
== END ==
LOC: RAD 10:29
PROVIDERS: Family Provider Family Medicine; PCP Family Medicine; Referring Provider Family Medicine; Visit Provider Family Medicine
DX: M25.531 Pain in right wrist (principal)
CPT/HCPCS: 73110